=== PATIENT | female | born 1945 | race Caucasian/White ===

== ENCOUNTER → 2017-07-15 09:51 | Outpatient (CLI) | payer MEDICARE, BC, SELFPAY ==
--- NOTE | 2017-07-15 10:05 | RAD_ITS ---
STUDY: X-RAY - LUMBAR SPINE REASON FOR EXAM: Female, 72 years old. Lower back pain TECHNIQUE: 3 view(s) of the lumbar spine were obtained. COMPARISON: None FINDINGS: Normal lumbar lordosis. There is no substantial scoliosis. There is a normal alignment of the vertebrae. Degenerative findings of the hips. Grade 1 anterolisthesis of L5 on S1. Bilateral neural foraminal stenosis. There is multilevel endplate spondylosis of the lumbar vertebrae. There is multi-level degenerative disc disease with multi-level disc space narrowing. There are atherosclerotic vascular calcifications. The soft tissue structures are unremarkable. RAD/Lumbar Spine 2 or 3 Views IMPRESSION: Degenerative changes of the spine, as detailed above. Electronically Signed: Jose Marley MD at 18:07 EDT , Service support ,
== END ==
PROVIDERS: Family Provider Family Medicine; PCP Family Medicine; Visit Provider Anesthesiology Pain Medicine
DX: M54.5 Low back pain (principal)
CPT/HCPCS: 72100

== ENCOUNTER 2018-04-22 10:00 | Outpatient (RCR) | payer MEDICARE, BC, SELFPAY ==
--- NOTE | 2018-04-13 09:43 | HP.PTEVAL ---
Patient's Visit Information YUNG GAUTHIER is a 72 year old F referred to Physical Therapy by Bel Brown MD with a diagnosis of Back pain. Date of Evaluation: 04/13/18 Physical Therapist: Pablo Ly, TERRELLT, OCS, CSCS - Visit Plan Frequency: 3x /Week Duration: 4-6 Weeks Plan: 3x/week for 3-6 weeks for aquatic based : HS, ITB, quad stretches. NS DLS/core strength. general ex for UE/LE in NS posture. - Subjective Findings: LBP and muscle stiffness. Chronic LBP for years most of time. Has arthritic cyst onn spine adn degenerative OA. Has tendonosis in L achilles. Has h/o stroke effecting L side. Weak L side. Tingles both legs iof stands too long. No numbness. Pain is across LB and into L hip. Pain is 4/10, worst this week was 6/10 standing too long. standing to do dishes hurts. Sleeps is OK most of time, Sleeps on belly or side. Stiff in am first thing. Retired 12 years ago from [employer]. Activities include computer adn reading and housework. Son in law and dtr live with her and he cleans the floors. Does dishes and cooking. Back makes her squirm but she can do most things. - Pain LBP Pain Intensity (Out of 10): 3 Pain Intensity Range: 0, 7 - Objective Walks slow but steady, minor L limp. Trasnfers I to and fro supine and sit. L/S aROM ext max limited, SB min limited and all painful in central LB, flexion just stretching in HS adn feel tight in LB. reflexes 2/3 patella and achilles B. Sensation WNL to gross light touch B LE. UE AROM WNL. Strength LE 4-/5 L hip and knee and ankle, 4/5 R, seemingly form stroke 10 years ago. Able to pelvic tilt with VC today. Tender to touch L/S paraspinals and into cervical paraspinals. Tightness noted B HS at -20 90/90 test. and mod in quads. Min in ITB. - slump and - SLR. - Goals Goal 1:: Pt LBP 0-2/10 at all times and manageable Goal Time Frame: 4-6 Weeks Goal 2:: Pt I in approp water or land based ex to minimize future problems. Goal Time Frame: 4-6 Weeks Goal 3:: Pt sleep without interruption from back pain and less stiffness in am. Goal Time Frame: 4-6 Weeks Goal 4:: 20% improvement in oswestry score. Goal Time Frame: 4-6 Weeks - Rehabilitation Potential Physical Therapy Diagnosis: Muscle pain, back degeneration Rehabilitation Potential: Fair - Anticipated Interventions Patient/Client Instruction: Educate patient on: Condition, Plan of Care For the Purpose of:: To decrease pain, To increase ROM, To improve muscle performance and motor function Therapeutic Exercise to Include: Strength training, Flexibilty training, In an aquatic setting, Passive ROM, Active ROM For the Purpose of:: To decrease pain, To increase ROM, To increase tolerance to activity/condition/position, To improve ability of physical actions for home/community/work/leisure Thank you for the opportunity to evaluate your patient. For Medicare and Medicare HMO plans, please review the plan of care and approve it. It will need to be FAXED BACK to us at [phone] for Medicare purposes. For Medicare only, by signing this I certify the plan of care. Please let me know if there are questions or concerns regarding this plan of care. Physician Signature: Date:
--- NOTE | 2018-06-09 16:15 | HP.PTDCNRP_ITS ---
HP - Discharge Summary (1) - Patient Information YUNG GAUTHIER was seen in my office for initial evaluation on 04/13/18. The following Plan of Care was established for this patient: Initial Frequency: 3x /Week Initial Duration: 4-6 Weeks - Anticipated Interventions Patient/Client Instruction: Educate patient on: Condition, Plan of Care For the Purpose of:: To decrease pain, To increase ROM, To improve muscle p erformance and motor function Therapeutic Exercise to Include: Strength training, Flexibilty training, In an aquatic setting, Passive ROM, Active ROM For the Purpose of:: To decrease pain, To increase ROM, To increase tolerance to activity/condition/position, To improve ability of physical actions for home/community/work/leisure This patient was last seen in our office 04/22/18. Pertinent comments regarding their Physical therapy will appear below: Pt seen 3 visits of POC adn then cancelled rest of visits in favor of revisiting doctor as she was hurting too bad. I will discontinue her due to nonattendance. At this point I will be discontinuing this patient from physical therapy. I would be happy to see this patient again in the future if found appropriate by the physician. Thank you! Pablo Ly, DPT, OCS, CSCS
== END 2018-04-22 19:00 | disposition home or self-care (01) ==
LOC: PT 10:00
PROVIDERS: Family Provider Family Medicine; PCP Family Medicine; Visit Provider Anesthesiology Pain Medicine
DX: M54.9 Dorsalgia, unspecified (principal); M79.10 Myalgia, unspecified site
CPT/HCPCS: 97113; 97162

== ENCOUNTER → 2018-06-11 13:08 | Outpatient (CLI) | payer MEDICARE, BC, SELFPAY ==
--- NOTE | 2018-06-11 13:38 | MRI_ITS ---
STUDY: MRI LUMBAR SPINE WITHOUT CONTRAST REASON FOR EXAM: Female, 72 years old. Right leg and hip pain with back pain TECHNIQUE: Standardized fat and water weighted pulse sequences were obtained in the sagittal and axial planes. COMPARISON: 11/07/2015 FINDINGS: T12-L1: Incompletely imaged bulging annulus. Normal lumbar lordosis. There is no substantial scoliosis. Normal conus medullaris that terminates at the L2 level. Stable 9 mm of grade 1 L5-S1 anterolisthesis. L1-2: Bulging annulus without compressive sequelae. L2-3: Disc space narrowing and desiccation with discogenic endplate changes and anterior osteophytes. Disc osteophyte complex and bilateral facet hypertrophy with mild central canal and moderate bilateral foraminal stenoses. L3-4: Disc space narrowing and desiccation with discogenic endplate changes and anterior osteophytes. Disc osteophyte complex and bilateral facet and ligamentum flavum hypertrophy with moderate central canal stenosis and severe left and moderate to severe right foraminal stenoses. There is mass effect on the exiting left L3 nerve root. L4-5: Bulging annulus and bilateral facet and ligamentum flavum hypertrophy. Moderate central canal and moderate to severe left and moderate right foraminal stenoses. 14 mm synovial cyst projecting posteriorly from the left facet joint. L5-S1: Anterolisthesis, bulging annulus, and bilateral facet hypertrophy with moderate to severe central canal stenosis and severe bilateral foraminal stenoses. There is mass effect on both exiting L5 nerve roots. Normal visualized sacral ala. Normal visualized paraspinous soft tissue structures. MRI/Spine Lumbar (Routine) IMPRESSION: Grade 1 L5-S1 anterolisthesis. Multilevel degenerative disease as described. Severe foraminal stenoses on the left at L3-4 and bilaterally at L5-S1, with mass effect on the corresponding exiting nerve roots at those levels. These findings are unchanged. Electronically Signed: Yogesh Evangelista MD at 20:41 EDT Tel , Service support ,
== END ==
PROVIDERS: Family Provider Family Medicine; PCP Family Medicine; Referring Provider Anesthesiology Pain Medicine; Visit Provider Anesthesiology Pain Medicine
DX: M79.604 Pain in right leg (principal); M54.9 Dorsalgia, unspecified
CPT/HCPCS: 72148

== ENCOUNTER → 2018-08-10 | Outpatient (CLI) | payer MEDICARE, BC, SELFPAY ==
[2018-08-10 12:27] LABS: Absolute Lymphocyte Count 2.41 X10^3/ul (0.83-4.51); Absolute Neutrophil Count 6.1 X10^3/uL (2.0-7.7); Basophil# 0.02 X10^3/uL; Basophil% 0.2 % (0-1); Eosinophil# 0.06 X10^3/uL; Eosinophils% 0.7 % (0-5); Hematocrit 42.8 % (37-47); Hemoglobin 14.5 g/dl (12.0-15.0); Lymphocyte # 2.41 X10^3/ul (4.0); Lymphocyte % 26.3 % (19-41); Mean Corp Hgb Conc 33.9 g/gl (32-36); Mean Corpuscular Hgb 30.5 pg (27.0-32.0); Mean Corpuscular Volume 90.1 fL (81-99); Mean Platelet Vol. 9.3 fl (6.2-12.0); Monocyte# 0.57 X10^3/uL; Monocyte% 6.2 % (0-10); Neutrophil # 6.09 X10^3/uL (2.7-7.7); Neutrophil % 66.4 % (47-70); Platelet Count 290 K/mm3 (150-450); RBC Distribution Width CV 13.1 % (11.6-14.6); RBC Distribution Width SD 42.6 fl (35.1-43.9); Red Blood Count 4.75 M/mm3 (4.2-5.4); White Blood Count 9.2 K/mm3 (4.4-11.0)
[2018-08-10 12:45] LABS: POSITIVE COUNT NO; POSITIVE DIFFERENTIAL NO; POSITIVE MORPHOLOGY NO
[2018-08-10 13:00] LABS: ALB/GLOB Ratio 1.1 RATIO (0.9-2.4); AST(SGOT) 18 U/L (15-37); Alanine Aminotransfer ALT/SGPT 25 U/L (13-56); Alkaline Phosphatase 100 U/L (45-117); Anion Gap 7 (5-15); BUN 23 mg/dL (7-18); BUN/Creat Ratio 28.6 RATIO (10-20); Calcium,Total 9.2 mg/dL (8.5-10.1); Chloride 103 mmol/L (98-107); Cholesterol 183 mg/dL (200); EST Glomerular Filtration Rate 74 mL/min (>60); Est Glom Filt Rate - Afr Amer 90 mL/min (>60); Globulin 3.7 g/dL (2.2-4.2); Glucose 95 mg/dL (74-106); High Density Lipoprotein 57 mg/dL; Protein, Total 7.7 g/dL (6.4-8.2); Sodium Level 140 mmol/L (136-145); Triglycerides 120 mg/dL; Very Low Density Lipoprotein 24 mg/dL (5-40)
== END | disposition home or self-care (01) ==
LOC: MTLAB 09:23
PROVIDERS: Family Provider Family Medicine; PCP Family Medicine; Referring Provider Family Medicine; Visit Provider Family Medicine
DX: I10 Essential (primary) hypertension (principal); R73.01 Impaired fasting glucose; K21.9 Gastro-esophageal reflux disease without esophagitis; E78.5 Hyperlipidemia, unspecified
CPT/HCPCS: 36415; 80053; 80061; 85025

== ENCOUNTER → 2018-10-14 09:16 | Outpatient (CLI) | payer MEDICARE, BC, SELFPAY ==
--- NOTE | 2018-10-14 09:18 | BI_ITS ---
MAMMOGRAPHY - BILATERAL SCREENING REASON FOR EXAM: Female, 73 years old. Routine annual screening examination. PERTINENT HISTORY: Non-contributory. Remote left stereotactic breast biopsy. TECHNIQUE: Digital bilateral breast milagros (3D mammographic acquisition) in the CC and MLO projections. 2-D mediolateral oblique (MLO) and craniocaudad (CC) views of both breasts were obtained. CAD: Full Field Digital Mammography with Computer Added Detection was performed. COMPARISON: Comparison is made with prior outside examination dated June 11, 2017. FINDINGS: Breast Composition: The breasts are almost entirely fatty. There are no dominant masses or suspicious calcifications. A tissue clip marker is seen in the deep central aspect of the right breast. Benign appearing bilateral axillary lymph nodes. No other significant abnormalities are identified. There has been no significant change since the prior study. BI/SCREEN MAMM (CAD) W/MILAGROS BILAT IMPRESSION: Stable bilateral screening mammogram. Yearly follow-up mammogram recommended. (A) ASSESSMENT CATEGORY: BIRADS Category 2: Benign. A letter regarding these results will be sent to the patient by the facility within 30 days. Approximately 10% of breast cancers are not detected by mammography. A normal mammogram should not delay biopsy of a clinically suspicious abnormality. [id number] Electronically Signed: Herve Alejandra, at 10:55 EDT , Service support ,
--- NOTE | 2018-10-14 09:22 | BD_ITS ---
STUDY: DUAL ENERGY X-RAY ABSORPTIOMETRY / DXA REASON FOR EXAM: Female, 73 years old. The patient is postmenopausal. Loss of height. TECHNIQUE: Bone Mineral Density (BMD) measurements of lumbar spine and bilateral hips were obtained. COMPARISON: None. FINDINGS: Lumbar Spine (L1-L4): g/cm2 (1.386) / T-score (1.8) / Z-score (3.6) Findings are suggestive of normal bone density with a low fracture risk. Left Femur Total: g/cm2 (0.773) / T-score (-1.9) / Z-score (-0.2) Left Femoral Neck: g/cm2 (0.730) / T-score (-2.2) / Z-score (-0.3) Right Femur Total: g/cm2 (0.852) / T-score (-1.2) / Z-score (0.4) Right Femoral Neck: g/cm2 (0.814) / T-score (-1.6) / Z-score (0.3) BD/Dexa Bone Density Study IMPRESSION: The patient is considered osteopenic as outlined below according to World Harish Organization (WHO) criteria with a high fracture risk. Reference Information: The T-score is the number of standard deviations above or below the standard which is normal for young adults at their peak bone mineral density. The World Health Organization (WHO) interprets the T-scores as follows: Above -1 Normal bone density Between -1 and -2.5 Osteopenia Equal to / or below -2.5 Osteoporosis As a practical clinical guideline, osteopenia may be graded as follows: Mild -1 through -1.5 Moderate -1.6 through -2.0 Severe -2.1 through -2.4 The Z-score is the number of standard deviations above or below age-matched controls. A Z-score of less than -1.5 would be considered abnormal. References: 1. NIH Osteoporosis and Related Bone Diseases http://www.osteo.org 2. International Society for Clinical Densitometry http://www.iscd.org 3. National Osteoporosis Foundation http://www.nof.org Electronically Signed: Herve Alejandra, at 15:26 EDT , Service support ,
== END ==
PROVIDERS: Family Provider Family Medicine; PCP Family Medicine; Referring Provider Family Medicine; Visit Provider Family Medicine
DX: Z12.31 Encounter for screening mammogram for malignant neoplasm of breast (principal); Z78.0 Asymptomatic menopausal state; M85.80 Other specified disorders of bone density and structure, unspecified site
CPT/HCPCS: 77063; 77067; 77080

== ENCOUNTER → 2019-02-01 10:23 | Outpatient (CLI) | payer MEDICARE, BC, SELFPAY ==
--- NOTE | 2019-02-01 10:46 | RAD_ITS ---
STUDY: X-RAY - RIGHT KNEE REASON FOR EXAM: Female, 73 years old. Fall. Pain. TECHNIQUE: 4 view(s) of the knee. COMPARISON: None. FINDINGS: Normal visualized distal femur. Normal visualized proximal tibia and fibula. Normal proximal tibiofibular articulation. There is no demonstrated fracture. There is moderate degenerative arthrosis of the medial femorotibial compartment with moderate joint space narrowing. Normal lateral femorotibial compartment. There is moderate degenerative arthrosis of the patellofemoral articulation. There is no demonstrated joint effusion. The soft tissue structures are unremarkable. RAD/Knee 4 or More Views IMPRESSION: No fracture or dislocation. Degenerative changes. Electronically Signed: Teodoro Ramos MD at 18:26 EST , Service support ,
== END ==
PROVIDERS: Family Provider Family Medicine; PCP Family Medicine; Referring Provider Anesthesiology Pain Medicine; Visit Provider Anesthesiology Pain Medicine
DX: M25.569 Pain in unspecified knee (principal); W19.XXXA Unspecified fall, initial encounter
CPT/HCPCS: 73564

== ENCOUNTER → 2019-02-15 07:58 | Outpatient (CLI) | payer MEDICARE, BC, SELFPAY ==
[2019-02-15 10:09] LABS: Absolute Neutrophil Count 3.7 X10^3/uL (2.0-7.7); Basophil# 0.03 X10^3/uL; Basophil% 0.5 % (0-1); Eosinophil# 0.09 X10^3/uL; Eosinophils% 1.6 % (0-5); Hematocrit 40.4 % (37-47); Hemoglobin 13.4 g/dL (12.0-15.0); Lymphocyte % 27.9 % (19-41); Mean Corp Hgb Conc 33.2 g/dL (32-36); Mean Corpuscular Hgb 30.6 pg (27.0-32.0); Mean Corpuscular Volume 92.2 fL (81-99); Mean Platelet Vol. 9.7 fl (6.2-12.0); Monocyte# 0.28 X10^3/uL; Monocyte% 4.9 % (0-10); NRBC Flagged by Analyzer 0 % (0-5); Neutrophil # 3.72 X10^3/uL (2.7-7.7); Neutrophil % 64.9 % (47-70); Platelet Count 209 K/mm3 (150-450); RBC Distribution Width CV 13.8 % (11.6-14.6); RBC Distribution Width SD 46.8 fl (35.1-43.9); Red Blood Count 4.38 M/mm3 (4.2-5.4); White Blood Count 5.7 K/mm3 (4.4-11.0)
[2019-02-15 10:37] LABS: Hemoglobin A1c 5.5 % (4.2-6.3)
[2019-02-15 10:45] LABS: ALB/GLOB Ratio 1.2 RATIO (0.9-2.4); AST(SGOT) 16 U/L (15-37); Alanine Aminotransfer ALT/SGPT 25 U/L (13-56); Albumin, Serum 3.7 g/dL (3.2-5.0); Alkaline Phosphatase 72 U/L (45-117); Anion Gap 6 (5-15); BUN 20 mg/dL (7-18); BUN/Creat Ratio 25.5 RATIO (10-20); Calcium,Total 9.2 mg/dL (8.5-10.1); Chloride 106 mmol/L (98-107); Cholesterol 183 mg/dL (200); Creatinine, Serum 0.78 mg/dL (0.55-1.02); EST Glomerular Filtration Rate 76 mL/min (>60); Est Glom Filt Rate - Afr Amer 92 mL/min (>60); Globulin 3.2 g/dL (2.2-4.2); Glucose 102 mg/dL (74-106); High Density Lipoprotein 60 mg/dL; Protein, Total 6.9 g/dL (6.4-8.2); Sodium Level 140 mmol/L (136-145); Triglycerides 141 mg/dL; Very Low Density Lipoprotein 28 mg/dL (5-40)
== END ==
PROVIDERS: Family Provider Family Medicine; PCP Family Medicine; Referring Provider Family Medicine; Visit Provider Family Medicine
DX: I10 Essential (primary) hypertension (principal); M85.80 Other specified disorders of bone density and structure, unspecified site; R73.01 Impaired fasting glucose; K21.9 Gastro-esophageal reflux disease without esophagitis; M06.4 Inflammatory polyarthropathy
CPT/HCPCS: 36415; 80053; 80061; 83036; 85025

== ENCOUNTER → 2019-05-17 09:42 | Outpatient (CLI) | payer MEDICARE, BC, SELFPAY ==
--- NOTE | 2019-05-17 09:46 | RAD_ITS ---
STUDY: X-RAY - RIGHT HAND REASON FOR EXAM: Female, 73 years old. OSTEOARTHRITIS, PAIN TECHNIQUE: 3 view(s) of the hand. COMPARISON: None. FINDINGS: Normal radiocarpal articulation. Normal distal radioulnar joint. Normal visualized carpal bones. Normal carpal articulations There is degenerative arthrosis of the carpometacarpal (CMC) articulation of the thumb. Normal second through fifth carpometacarpal joints. Normal metacarpi. Normal metacarpophalangeal joint of the thumb. Normal interphalangeal joint of the thumb. Normal proximal and distal phalanges of the thumb. Normal metacarpophalangeal joints of the second through fifth fingers. There is diffuse articular joint space narrowing of the proximal and distal interphalangeal joints of the second through fifth fingers, but without erosive changes or periarticular soft tissue swelling. Normal phalanges of the second through fifth fingers. The soft tissue structures are unremarkable. RAD/Hand Min 3 Views IMPRESSION: Degenerative joint disease of the hand and wrist, as described above. Electronically Signed: Matthew Krishnan MD at 15:28 EDT Tel , Service support ,
--- NOTE | 2019-05-17 09:46 | RAD_ITS ---
STUDY: X-RAY - LEFT HAND REASON FOR EXAM: Pain, osteoarthritis. TECHNIQUE: 3 view(s) of the hand. COMPARISON: None. FINDINGS: Normal radiocarpal articulation. Normal distal radioulnar joint. Normal visualized carpal bones. There is moderate joint space narrowing of the triscaphe articulation. There is joint space loss of the carpometacarpal articulation of the thumb. Normal second through fifth carpometacarpal joints. Normal metacarpi. There is mild joint space narrowing of the metacarpophalangeal joint of the thumb. There are marginal osteophytes with joint space narrowing of the interphalangeal joint of the thumb. Normal proximal and distal phalanges of the thumb. There is joint space narrowing of the metacarpophalangeal joints of the third through fifth fingers. There are marginal osteophytes with joint space narrowing of the proximal and distal interphalangeal joints of the second through fifth fingers and central erosive changes of the second through fourth proximal interphalangeal joints and second distal interphalangeal joint suggestive of erosive osteoarthritis. Normal phalanges of the second through fifth fingers. The soft tissue structures are unremarkable. RAD/Hand Min 3 Views IMPRESSION: Erosive osteoarthritis. Electronically Signed: Thomas Torrez MD at 14:04 EDT Tel , Service support ,
--- NOTE | 2019-05-17 09:46 | RAD_ITS ---
STUDY: X-RAY - LEFT KNEE REASON FOR EXAM: Female, 73 years old. OSTEOARTHRITIS, PAIN TECHNIQUE: 4 view(s) of the knee. COMPARISON: None. FINDINGS: Normal visualized distal femur. Normal visualized proximal tibia and fibula. Normal proximal tibiofibular articulation. There is severe degenerative arthrosis of the medial femorotibial compartment with severe joint space narrowing. There is mild degenerative arthrosis of the lateral femorotibial compartment. There is mild degenerative arthrosis of the patellofemoral articulation. The soft tissue structures are unremarkable. RAD/Knee 4 or More Views IMPRESSION: Degenerative arthrosis. Electronically Signed: Matthew Krishnan MD at 15:27 EDT Tel , Service support ,
== END ==
PROVIDERS: PCP Family Medicine; Referring Provider Internal Medicine Rheumatology; Visit Provider Internal Medicine Rheumatology
DX: M19.049 Primary osteoarthritis, unspecified hand (principal); M17.12 Unilateral primary osteoarthritis, left knee
CPT/HCPCS: 73130; 73564

== ENCOUNTER → 2019-11-02 08:25 | Outpatient (CLI) | payer MEDICARE, BC, SELFPAY ==
--- NOTE | 2019-11-02 08:27 | BI_ITS ---
MAMMOGRAPHY - BILATERAL SCREENING REASON FOR EXAM: Female, 74 years old. Routine annual screening examination. PERTINENT HISTORY: Non-contributory. Remote left stereotactic breast biopsy. TECHNIQUE: Digital bilateral breast milagros (3D mammographic acquisition) in the CC and MLO projections. 2-D mediolateral oblique (MLO) and craniocaudad (CC) views of both breasts were obtained. CAD: Full Field Digital Mammography with Computer Added Detection was performed. COMPARISON: Comparison is made with prior examination dated 10/14/2018. FINDINGS: Breast Composition: The breasts are almost entirely fatty. There are no dominant masses or suspicious calcifications. A tissue clip marker is once again seen in the deep central portion of the right breast. Stable benign-appearing bilateral axillary lymph nodes. No other significant abnormalities are identified. There has been no significant change since the prior study. BI/SCREEN MAMM (CAD) W/MILAGROS BILAT IMPRESSION: Stable bilateral screening mammogram. Yearly follow-up mammogram recommended. (A) ASSESSMENT CATEGORY: BIRADS Category 2: Benign. A letter regarding these results will be sent to the patient by the facility within 30 days. Approximately 10% of breast cancers are not detected by mammography. A normal mammogram should not delay biopsy of a clinically suspicious abnormality. [id number] Electronically Signed: Herve Alejandra, at 12:55 EDT , Service support ,
== END ==
PROVIDERS: PCP Family Medicine; Referring Provider Family Medicine; Visit Provider Family Medicine
DX: Z12.31 Encounter for screening mammogram for malignant neoplasm of breast (principal); M85.80 Other specified disorders of bone density and structure, unspecified site
CPT/HCPCS: 77063; 77067

== ENCOUNTER → 2020-02-16 09:47 | Outpatient (CLI) | payer MEDICARE, BC, SELFPAY ==
[2019-11-14 11:42] VITALS: BMI 36.3
[2020-02-16 12:19] LABS: Absolute Lymphocyte Count 1.37 X10^3/uL (0.83-4.51); Absolute Neutrophil Count 3.5 X10^3/uL (2.0-7.7); Basophil# 0.03 X10^3/uL; Basophil% 0.6 % (0-1); Eosinophils% 1.9 % (0-5); Hematocrit 38.5 % (37-47); Hemoglobin 12.3 g/dL (12.0-15.0); Lymphocyte # 1.37 X10^3/ul (4.0); Mean Corp Hgb Conc 31.9 g/dL (32-36); Mean Corpuscular Hgb 30.3 pg (27.0-32.0); Mean Corpuscular Volume 94.8 fL (81-99); Mean Platelet Vol. 9.6 fl (6.2-12.0); Monocyte# 0.26 X10^3/uL; Monocyte% 4.9 % (0-10); NRBC Flagged by Analyzer 0 % (0-5); Neutrophil # 3.48 X10^3/uL (2.7-7.7); Neutrophil % 66.2 % (47-70); Platelet Count 239 K/mm3 (150-450); RBC Distribution Width CV 13.1 % (11.6-14.6); Red Blood Count 4.06 M/mm3 (4.2-5.4); White Blood Count 5.3 K/mm3 (4.4-11.0)
[2020-02-16 12:49] LABS: ALB/GLOB Ratio 1.1 RATIO (0.9-2.4); AST(SGOT) 16 U/L (15-37); Alanine Aminotransfer ALT/SGPT 24 U/L (13-56); Albumin, Serum 3.8 g/dL (3.2-5.0); Alkaline Phosphatase 96 U/L (45-117); Anion Gap 6 (5-15); BUN 18 mg/dL (7-18); BUN/Creat Ratio 25.4 RATIO (10-20); Calcium,Total 8.9 mg/dL (8.5-10.1); Chloride 107 mmol/L (98-107); Cholesterol 168 mg/dL (200); Creatinine, Serum 0.71 mg/dL (0.55-1.02); EST Glomerular Filtration Rate 85 mL/min (>60); Est Glom Filt Rate - Afr Amer 103 mL/min (>60); Globulin 3.5 g/dL (2.2-4.2); Glucose 93 mg/dL (74-106); High Density Lipoprotein 49 mg/dL; Potassium 3.7 mmol/L (3.5-5.1); Protein, Total 7.3 g/dL (6.4-8.2); Sodium Level 141 mmol/L (136-145); Triglycerides 176 mg/dL; Very Low Density Lipoprotein 35 mg/dL (5-40)
[2020-02-16 12:53] LABS: Hemoglobin A1c 5.3 % (3.8-5.6)
== END ==
PROVIDERS: PCP Family Medicine; Referring Provider Family Medicine; Visit Provider Family Medicine
DX: R73.01 Impaired fasting glucose (principal); I10 Essential (primary) hypertension; K21.9 Gastro-esophageal reflux disease without esophagitis
CPT/HCPCS: 36415; 80053; 80061; 83036; 85025

== ENCOUNTER → 2020-03-24 11:55 | Outpatient (CLI) | payer MEDICARE, BC, SELFPAY ==
[2019-11-14 11:42] VITALS: BMI 36.3
== END ==
PROVIDERS: PCP Family Medicine; Visit Provider Family Medicine
DX: U07.1 COVID-19 (principal)
CPT/HCPCS: 87635; U0005; U0003

== ENCOUNTER 2020-03-30 12:36 | Outpatient (CLI) | payer MEDICARE, BC, SELFPAY ==
[2019-11-14 11:42] VITALS: BMI 36.3
[2020-03-30 12:57] VITALS: BP 111/66; PULSE 70; RESP 18; TEMP 37.6; O2SAT 95; BMI 36.4
[2020-03-30 13:40] VITALS: BP 120/63; PULSE 69; RESP 18; TEMP 37.4; O2SAT 93
[2020-03-30 14:10] VITALS: BP 135/59; PULSE 77; RESP 18; TEMP 37.6; O2SAT 96
[2020-03-30 14:25] VITALS: BP 106/65; PULSE 71; RESP 18; TEMP 37.1; O2SAT 96
[2020-03-30 14:55] VITALS: BP 112/53; PULSE 73; RESP 18; TEMP 37.5; O2SAT 73
[2020-03-30 15:25] VITALS: BP 111/56; PULSE 72; RESP 18; TEMP 36.9; O2SAT 96
== END 2020-03-30 15:25 | disposition home or self-care (01) ==
LOC: MS2OUT 12:36 → MS2 12:37
PROVIDERS: PCP Family Medicine; Referring Provider Nurse Practitioner Acute Care; Visit Provider Nurse Practitioner Acute Care
DX: U07.1 COVID-19 (principal)
CPT/HCPCS: J7050; M0239; Q0239

== ENCOUNTER → 2020-07-10 20:19 | Outpatient (CLI) | payer MEDICARE, BC, SELFPAY | PROVIDERS: PCP Family Medicine; Referring Provider Family Medicine; Visit Provider Family Medicine | DX: G47.10 Hypersomnia, unspecified (principal); R53.83 Other fatigue; I10 Essential (primary) hypertension | CPT/HCPCS: 95810 ==

== ENCOUNTER → 2020-08-04 14:29 | Outpatient (CLI) | payer MEDICARE, BC, SELFPAY ==
[2020-08-04 07:56] VITALS: BMI 35.2
[2020-08-04 15:11] LABS: Hematocrit 38.5 % (37-47); Hemoglobin 12.5 g/dL (12.0-15.0); Mean Corp Hgb Conc 32.5 g/dL (32-36); Mean Corpuscular Hgb 30.1 pg (27.0-32.0); Mean Corpuscular Volume 92.8 fL (81-99); Mean Platelet Vol. 9.4 fl (6.2-12.0); Platelet Count 257 K/mm3 (150-450); RBC Distribution Width CV 13.8 % (11.6-14.6); RBC Distribution Width SD 46.7 fl (35.1-43.9); Red Blood Count 4.15 M/mm3 (4.2-5.4); White Blood Count 7.4 K/mm3 (4.4-11.0)
[2020-08-04 15:30] LABS: Ferritin 28 ng/mL (8-252); Iron 73 ug/dL (50-170); Iron Binding Capacity,Total 388 ug/dL (250-450); PERCENT IRON SATURATION 18.8 % (15.0-55.0)
== END ==
PROVIDERS: PCP Family Medicine; Referring Provider Nurse Practitioner Acute Care; Visit Provider Nurse Practitioner Acute Care
DX: D64.9 Anemia, unspecified (principal); G25.81 Restless legs syndrome
CPT/HCPCS: 36415; 82728; 83540; 83550; 85027

== ENCOUNTER 2020-08-11 21:29 | Emergency (ER) | payer MEDICARE, BC, SELFPAY ==
[2020-08-04 07:56] VITALS: BMI 35.2
[2020-08-11 21:30] VITALS: BP 163/95; PULSE 72; RESP 15; TEMP 36.1; O2SAT 96; BMI 36.5
--- NOTE | 2020-08-11 21:53 | EX.ED.DYSGE1 ---
HPI History of Present Illness Chief Complaint: Wound Detail of Chief Complaint: Rash on lower abdomen for about 2 weeks Informant: patient Narrative Narrative: Patient with a rash on the lower abdomen that she noticed 2 weeks ago. States that she went on vacation and has been putting bacitracin ointment on it but now she also noticed more spots. She denies fevers. She denies recent illness. [facility] Medical History (Reviewed 08/04/20 @ 13:55 by Na Burroughs RISK AND INSURANCE MANAGER, RISK AND INSURANCE MANAGER-C) Arthritis Back pain Diabetes Difficulty balancing Heart disease Hypertension Knee pain Limb weakness Neck pain Stroke Home Medications hydrochlorothiazide 25 mg PO DAILY 12/23/15 [History Last Taken Unknown] metformin 500 mg PO DAILY 12/23/15 [History Last Taken Unknown] pantoprazole 20 mg PO DAILY 12/23/15 [History Last Taken 06/07/16 08:00] potassium chloride 20 meq PO DAILY 12/23/15 [History Last Taken Unknown] acetaminophen 500 mg tablet 500 mg PO Q6H PRN 02/18/20 [History Last Taken Unknown] aspirin 81 mg tablet,delayed release 81 mg PO DAILY 02/18/20 [History Last Taken Unknown] gabapentin 100 mg capsule 600 mg PO TID cap 02/18/20 [History Last Taken Unknown] sertraline 100 mg tablet 150 mg PO DAILY tab 02/18/20 [History Last Taken Unknown] rosuvastatin 5 mg tablet 5 mg PO DAILY 03/29/20 [History Last Taken Unknown] sulindac 200 mg tablet 200 mg PO BID 03/29/20 [History Last Taken Unknown] albuterol sulfate 2 puff INHALATION Q4H PRN PRN 03/30/20 [History Last Taken Unknown] losartan 25 mg tablet 12.5 mg PO DAILY tab 08/04/20 [History Last Taken Unknown] cephalexin 500 mg PO Q6 #40 capsule 08/11/20 [Rx Last Taken Unknown] sulfamethoxazole-trimethoprim [Bactrim DS] 1 tab PO BID 10 Days #20 tab 08/11/20 [Rx Last Taken Unknown] Allergy/AdvReac Type Severity Reaction Status Date / Time meloxicam Allergy Unknown Verified 08/11/20 21:32 waldrop AdvReac Nausea/Vom/ Verified 08/11/20 21:32 Diarrhea ciprofloxacin AdvReac Vomiting Verified 08/11/20 21:32 methotrexate AdvReac Other Verified 08/11/20 21:32 simvastatin AdvReac Pain in Verified 08/11/20 21:32 joints Family History (Reviewed 08/04/20 @ 13:55 by Na Burroughs RISK AND INSURANCE MANAGER, RISK AND INSURANCE MANAGER-C) Sister Cancer Small cell Mother Asthma Heart disease Grandfather Myocardial infarction Grandmother Myocardial infarction Surgical History H/O tubal ligation Social History (Reviewed 08/04/20 @ 13:55 by Na Burroughs RISK AND INSURANCE MANAGER, RISK AND INSURANCE MANAGER-C) Smoking Status: Never smoker ROS ROS ED Constitutional Constitutional ED: Reports systems reviewed and no addt'l complaints, except as documented; Denies body ache(s), change in weight or chills Eyes Eyes: Denies acute decrease in peripheral vision, change in vision, double vision or loss of vision ENT ENT ED: Reports none; Denies ear pain, lip swelling, loss taste/smell, neck pain, otalgia or sore throat Cardiovascular Cardiovascular: Reports none; Denies abdominal pain, chest pain with activity, leg edema, lightheadedness, palpitations, rapid heart rate or syncope Respiratory/Chest Respiratory/Chest: Reports none; Denies change in mental status, dry cough, dyspnea, hemoptysis, shortness of breath at rest or shortness of breath with exertion Gastrointestinal Gastrointestinal: Reports none; Denies abdominal pain, change in stool character, diarrhea, hematemesis, hematochezia, melena, rectal bleeding or vomiting Genitourinary Genitourinary ED: Reports none; Denies abdominal discomfort, anuria, dysuria, genital pain or polyuria Musculoskeletal Musculoskeletal: Reports none; Denies arthralgias, back pain, difficulty walking, extremity pain, muscle weakness or myalgias Integumentary Reports none and rash; Denies abscess Neurologic Neurologic: Reports none; Denies abnormal gait, confusion, focal weakness, frequent falls, headache(s), loss of vision, numbness, paresthesias, radicular pain, vertigo or weakness Psychiatric Psychiatric: Reports systems reviewed and no addt'l complaints, except as documented and none; Denies behavioral changes, confusion, difficulty concentrating, hallucinations, suicidal ideation, tactile hallucinations or visual hallucinations Endocrine Endocrinology: Denies none, cold intolerance, excessive sweating, fatigue or heat intolerance Hematologic/Lymphatic Hematologic/Lymphatic: Reports none; Denies anemia, easy bleeding or easy bruising Allergic/Immunologic Allergic/Immunologic ED: Denies as per HPI, none, lip swelling, mouth swelling, throat swelling, tongue swelling or hives EXAM Physical Exam Const Vital Signs: 08/11/20 21:30 Temperature 97 F L Temperature Source Temporal Pulse Rate 72 Respiratory Rate 15 Blood Pressure 163/95 H Blood Pressure Mean 117 Pulse Ox 96 Oxygen Delivery Method Room Air Positive well nourished and well developed General Appearance ED: well developed and NAD HEENT Reports TM's clear and moist mucous membranes normocephalic and atraumatic; Negative for trauma or tenderness Tympanic Membrane ED: Yes TM's clear Eyes PERRL and EOMs intact bilaterally General Eye ED: Negative for pale conjunctiva or scleral icterus Neck no lymphadenopathy, supple and no JVD General: Negative for tenderness Chest Wall inspection of chest normal and palpation of chest normal Chest: Negative for tenderness Resp normal respiratory effort and clear to auscultation bilaterally Effort and Inspection: Negative for respiratory distress or pain with movement Auscultation: Negative for rhonchi, wheezes or diminished lung sounds Cardio regular rate, regular rhythm, S1 normal heart sound, S2 normal heart sound and no murmurs Peripheral Pulses: pulses 2+ throughout GI normal to inspection, nondistended, normoactive bowel sounds, soft to palpation, non-tender, non-distended and no masses Back/Spine no CVA tenderness and no thoracic nor lumbar tenderness Extremity normal to inspection General Extremety ED: Negative for edema General Extremity: Negative for edema Neuro oriented x3, CN's II-XII intact bilaterally, no sensory deficits noted and gait normal Sensorium / Orientation: awake, alert, oriented to person, oriented to place and oriented to time Motor Exam: strength 5/5 throughout and strength abnormal Psych mental status grossly normal Skin no wounds General Skin Exam: other Patient has an erythematous excoriated rash that is circular inferior to the umbilicus with some faint surrounding erythema and cellulitis. She has a total of 2 lesions that appear cellulitic and 2 that are healing lateral to the cellulitic-looking lesions. MDM MDM MDM Narrative Medical decision making narrative: I suspect patient likely has a staph infection. She was started on Bactrim and Keflex. Patient to follow-up with primary care physician 5 to 7 days for wound check. Discharge Plan Triage Chief Complaint: Wound ED Provider: Dajuan Angelo Dx/Rx/DC Orders Clinical Impression: Cellulitis, Infection, skin, staph Instructions: ED Cellulitis, ED Staph Skin Infection, Possible MRSA Prescriptions: New sulfamethoxazole-trimethoprim [Bactrim DS] 800-160 mg tablet 1 tab PO BID 10 Days Qty: 20 RF: 0 cephalexin [cephalexin] 500 MG capsule 500 mg PO Q6 Qty: 40 RF: 0 No Action acetaminophen [Tylenol Extra Strength] 500 mg tablet 500 mg PO Q6H PRN (Reason: pain or fever) RF: 0 aspirin [Adult Aspirin Regimen] 81 mg tablet,delayed release (DR/EC) 81 mg PO DAILY RF: 0 losartan 25 mg tablet 12.5 mg PO DAILY RF: 0 rosuvastatin 5 mg tablet 5 mg PO DAILY RF: 0 sulindac 200 mg tablet 200 mg PO BID RF: 0 metformin 500 MG tablet 500 mg PO DAILY RF: 0 pantoprazole 20 MG tablet 20 mg PO DAILY RF: 0 potassium chloride 20 MEQ packet 20 meq PO DAILY RF: 0 hydrochlorothiazide 25 MG tablet 25 mg PO DAILY RF: 0 sertraline 100 mg tablet 150 mg PO DAILY RF: 0 gabapentin 100 mg capsule 600 mg PO TID RF: 0 albuterol sulfate 1 PUFF inhaler 2 puff INHALATION Q4H PRN PRN (Reason: Sob &/Or Wheezing) RF: 0 Primary Care Provider: Magi Farmer Referrals: Magi Farmer MD [Primary Care Provider] - 5-7 Days Disposition Disposition: Home, self care
[2020-08-11] MEDS: Cephalexin 250 MG Capsule 500 MG PO (22:09)
[2020-08-11] MEDS: Smz/Tmp Ds Tablet 1 TABLET PO (22:09)
== END 2020-08-11 22:15 | disposition home or self-care (01) ==
LOC: ED 22:02
PROVIDERS: Emergency Provider Emergency Medicine; PCP Family Medicine
DX: L03.316 Cellulitis of umbilicus (principal); B95.8 Unspecified staphylococcus as the cause of diseases classified elsewhere; E11.9 Type 2 diabetes mellitus without complications; I10 Essential (primary) hypertension; M19.90 Unspecified osteoarthritis, unspecified site; Z79.1 Long term (current) use of non-steroidal anti-inflammatories (NSAID); Z79.82 Long term (current) use of aspirin; Z79.84 Long term (current) use of oral hypoglycemic drugs; Z79.899 Other long term (current) drug therapy
CPT/HCPCS: 99283

== ENCOUNTER → 2020-11-28 10:51 | Outpatient (CLI) | payer MEDICARE, BC, SELFPAY ==
--- NOTE | 2020-11-28 10:54 | BI_ITS ---
MAMMOGRAPHY - BILATERAL SCREENING REASON FOR EXAM: Female, 75 years old. Routine annual screening examination. PERTINENT HISTORY: Non-contributory. TECHNIQUE: Digital bilateral breast milagros (3D mammographic acquisition) in the CC and MLO projections. 2-D mediolateral oblique (MLO) and craniocaudad (CC) views of both breasts were obtained. CAD: Full Field Digital Mammography with Computer Added Detection was performed. COMPARISON: Comparison is made with prior study 11/02/2019 and 10/14/2018. FINDINGS: Breast Composition: The breasts are almost entirely fatty. There are no dominant masses or suspicious calcifications. A tissue clip marker is once again seen in the deep central portion of the right breast. Stable benign-appearing bilateral axillary lymph nodes. No other significant abnormalities are identified. There has been no significant change since the prior study. BI/SCRN MAMM (CAD)W/MILAGROS BILAT IMPRESSION: Stable bilateral screening mammogram. Yearly follow-up mammogram recommended. (A) ASSESSMENT CATEGORY: BIRADS Category 2: Benign. A letter regarding these results will be sent to the patient by the facility within 30 days. Approximately 10% of breast cancers are not detected by mammography. A normal mammogram should not delay biopsy of a clinically suspicious abnormality. [id number] Electronically Signed: Herve Alejandra MD at 12:41 EDT , Service support ,
--- NOTE | 2020-11-28 10:57 | BD_ITS ---
STUDY: DUAL ENERGY X-RAY ABSORPTIOMETRY / DXA REASON FOR EXAM: Female, 75 years old. M85.89 TECHNIQUE: Bone Mineral Density (BMD) measurements of lumbar spine and bilateral hips were obtained. COMPARISON: Comparison is made with prior examination dated 10/14/2018. FINDINGS: Lumbar Spine (L1-L4): g/cm2 (1.336) / T-score (2.7) / Z-score (5.2) Findings are suggestive of normal bone density with a low fracture risk. Left Femur Total: g/cm2 (0.710) / T-score (-1.9) / Z-score (0.0) Left Femoral Neck: g/cm2 (0.553) / T-score (-2.7) / Z-score (-0.5) Right Femur Total: g/cm2 (0.763) / T-score (-1.5) / Z-score (0.4) Right Femoral Neck: g/cm2 (0.569) / T-score (-2.5) / Z-score (-0.4) The T-Scores on the most recent prior examination were: Lumbar Spine (L1-L4): There has been improvement of bone density since the previous examination. Left Femur Total: which represents a worsening of 0.5%. Right Femur Total: which represents a worsening of 3.4%. BD/Dexa Bone Density Study IMPRESSION: The patient is considered osteoporotic as outlined below according to World Harish Organization (WHO) criteria with a high fracture risk. There has been worsening of bone density since the previous examination. Reference Information: The T-score is the number of standard deviations above or below the standard which is normal for young adults at their peak bone mineral density. The World Health Organization (WHO) interprets the T-scores as follows: Above -1 Normal bone density Between -1 and -2.5 Osteopenia Equal to / or below -2.5 Osteoporosis As a practical clinical guideline, osteopenia may be graded as follows: Mild -1 through -1.5 Moderate -1.6 through -2.0 Severe -2.1 through -2.4 The Z-score is the number of standard deviations above or below age-matched controls. A Z-score of less than -1.5 would be considered abnormal. References: 1. NIH Osteoporosis and Related Bone Diseases www osteo.org 2. International Society for Clinical Densitometry www iscd.org 3. National Osteoporosis Foundation www nof.org Electronically Signed: Herve Alejandra MD at 15:35 EDT , Service support ,
== END ==
PROVIDERS: PCP Family Medicine; Referring Provider Family Medicine; Visit Provider Family Medicine
DX: Z12.31 Encounter for screening mammogram for malignant neoplasm of breast (principal); M81.0 Age-related osteoporosis without current pathological fracture
CPT/HCPCS: 77063; 77067; 77080

== ENCOUNTER 2020-12-27 19:41 | Emergency (ER) | payer MEDICARE, BC, SELFPAY ==
[2020-12-27 19:42] VITALS: BP 156/87; PULSE 94; RESP 18; TEMP 36.5; O2SAT 97; BMI 36.1
--- NOTE | 2020-12-27 20:07 | CT_ITS ---
EXAM: CT Abdomen and Pelvis With Intravenous Contrast CLINICAL INDICATION: 75 years old, Female; abdominal pain TECHNIQUE: Helically acquired images were obtained of the abdomen and pelvis with intravenous contrast. This CT exam was performed using one or more of the following dose reduction techniques: automated exposure control, adjustment of the mA and/or kV according to patient size, and/or use of iterative reconstruction technique. This report was created using [employer] report generation technology. CONTRAST: IV 100mL [id number]-300 COMPARISON: None. FINDINGS: Lower thorax: Small bilateral pleural effusions. Atelectasis in the lung bases. Coronary artery calcifications. Small hiatal hernia. No cardiomegaly. ABDOMEN: Liver: Unremarkable. Homogeneous. No focal mass. Gallbladder and bile ducts: Unremarkable. No calcified gallstones. No gallbladder distention or wall edema. No intra- or extrahepatic biliary ductal dilation. Pancreas: Unremarkable. No focal cystic or solid mass. Spleen: Unremarkable. Normal size without focal cystic or solid mass. Adrenals: Unremarkable. No nodules. Kidneys and ureters: Unremarkable. Normal renal size and position. No hydronephrosis. Stomach and bowel: There is some focal mucosal thickening in the transverse colon just to the left of midline which is indeterminate. Similar appearance in the sigmoid colon. Scattered diverticula in the colon. No diverticulitis. No stomach or bowel distention. PELVIS: Appendix: Normal appendix. Bladder: Unremarkable. Reproductive: Unremarkable as visualized. No mass. ABDOMEN and PELVIS: Intraperitoneal space: Moderate volume of abdominal and pelvic ascites. There is extensive nodularity and irregular mass in the omentum consistent with metastatic disease. There is also abnormal nodularity and soft tissue in the low pelvis within the cul-de-sac worrisome for malignancy. No free air. Bones/joints: Degenerative changes lumbar spine. Grade 1 anterolisthesis of L5 on S1 which appears to be on a degenerative basis. No suspicious lytic or blastic abnormality. Soft tissues: Unremarkable. No discrete abdominal or pelvic wall hernia. Vasculature: Atherosclerotic disease. Abdominal aorta is non-dilated. Lymph nodes: Unremarkable. No enlarged lymph nodes. CT/Abdomen/Pelvis W IV Cont ONLY IMPRESSION: 1. Small bilateral pleural effusions. 2. Moderate volume of abdominal and pelvic ascites. 3. There is extensive nodularity and irregular mass in the omentum consistent with metastatic disease. There is also abnormal nodularity and soft tissue in the low pelvis within the cul-de-sac worrisome for malignancy. Correlation with history would be helpful. 4. There is some focal mucosal thickening in the transverse colon just to the left of midline which is indeterminate. Similar appearance in the sigmoid colon. Colonoscopy evaluation could be performed if indicated. Electronically Signed: Gato Lea MD at 21:14 EDT Tel , Service support ,
--- NOTE | 2020-12-27 20:08 | EDS_ITS ---
HPI HPI - GI History of Present Illness Chief Complaint: Abd Pain Informant: patient Abdominal Pain/Flank Pain Onset: Days Context: Gradual Onset Timing: Continuous Quality: Aching and Cramping Location: Diffuse Current Severity: Mild Maximum Severity: Mild Nausea/Vomiting/Emesis GI Symptom: Positive for Nausea; Negative for Vomiting Onset: Days Severity: Mild Diarrhea/Melena/Hematochezia GI Symptom: Positive for Diarrhea; Negative for Melena and Hematochezia Stool Quality: Positive for Watery Severity: Mild Associated Symptoms Associated Symptoms: Negative for Dysuria, Frequency, Hematuria and Urgency Narrative Narrative: 75-year-old female history of diverticulitis, stroke and diabetes. She is never had any surgery ever. States on Friday she had lower abdominal pain. Is now been for the last 4 days. States she feels miserable. Associated nausea but no vomiting. It is improved she has had loose stools. Watery diarrhea. Only 1 episode of diarrhea in the last 24 hours. No melena. No vomiting. She denies fever or chills. No dysuria. No significant weight loss. She is also complains of back pain associated with this. Back pain is worse with different positions. Denies any falls or trauma. Prior similar symptoms: Yes Recent Illness/Hospitalization: No PFSH PFSH Medical History Arthritis Back pain Diabetes Difficulty balancing Heart disease Hypertension Knee pain Limb weakness Neck pain Stroke Home Medications hydrochlorothiazide 25 mg PO DAILY 12/23/15 [History Last Taken Unknown] metformin 500 mg PO DAILY 12/23/15 [History Last Taken Unknown] pantoprazole 20 mg PO DAILY 12/23/15 [History Last Taken 06/07/16 08:00] potassium chloride 20 meq PO DAILY 12/23/15 [History Last Taken Unknown] acetaminophen 500 mg tablet 500 mg PO Q6H PRN 02/18/20 [History Last Taken Unknown] aspirin 81 mg tablet,delayed release 81 mg PO DAILY 02/18/20 [History Last Taken Unknown] gabapentin 100 mg capsule 600 mg PO TID cap 02/18/20 [History Last Taken Unknown] sertraline 100 mg tablet 150 mg PO DAILY tab 02/18/20 [History Last Taken Unknown] rosuvastatin 5 mg tablet 5 mg PO DAILY 03/29/20 [History Last Taken Unknown] sulindac 200 mg tablet 200 mg PO BID 03/29/20 [History Last Taken Unknown] albuterol sulfate 2 puff INHALATION Q4H PRN PRN 03/30/20 [History Last Taken Unknown] losartan 25 mg tablet 12.5 mg PO DAILY tab 08/04/20 [History Last Taken Unknown] cephalexin 500 mg PO Q6 #40 capsule 08/11/20 [Rx Last Taken Unknown] sulfamethoxazole-trimethoprim [Bactrim DS] 1 tab PO BID 10 Days #20 tab 08/11/20 [Rx Last Taken Unknown] ropinirole 0.5 mg tablet 0.5 mg PO DAILY #60 tab 09/18/20 [Rx Last Taken Unknown] Allergy/AdvReac Type Severity Reaction Status Date / Time meloxicam Allergy Unknown Verified 12/27/20 20:03 waldrop AdvReac Nausea/Vom/ Verified 12/27/20 20:03 Diarrhea ciprofloxacin AdvReac Vomiting Verified 12/27/20 20:03 methotrexate AdvReac Other Verified 12/27/20 20:03 simvastatin AdvReac Pain in Verified 12/27/20 20:03 joints Family History Sister Cancer Small cell Mother Asthma Heart disease Grandfather Myocardial infarction Grandmother Myocardial infarction Surgical History H/O tubal ligation Social History Smoking Status: Never smoker ROS ROS ED ROS Narrative Nausea, diarrhea, abdominal pain back pain. Review of Systems ROS Unobtainable: Denies due to encephalopathy Constitutional Constitutional ED: Denies chills or fever(s) ENT ENT ED: Denies ear pain or sore throat Cardiovascular Cardiovascular: Denies chest pain Respiratory/Chest Respiratory/Chest: Denies cough or dyspnea Gastrointestinal Gastrointestinal: Reports abdominal pain, diarrhea and nausea; Denies constipation, melena or vomiting Genitourinary Genitourinary ED: Denies dysuria Musculoskeletal Musculoskeletal: Denies myalgias Integumentary Denies rash Neurologic Neurologic: Denies headache(s) Psychiatric Psychiatric: Denies depression Endocrine Endocrinology: Denies polyuria Hematologic/Lymphatic Hematologic/Lymphatic: Denies easy bruising Allergic/Immunologic Allergic/Immunologic ED: Denies urticaria EXAM Physical Exam Narrative Exam Narrative: Older female no acute distress. Vital signs stable afebrile. HEENT exam unremarkable. Neck nontender no lymphadenopathy. Lungs clear to auscultation. Heart regular rhythm no murmur. Abdomen soft nondistended normal bowel sounds no peritoneal signs. Mildly diffusely tender. No Del Rosario sign. No McBurney's point tenderness. No signs of obstruction. No pulsatile mass. She is moving all 4 extremities. No edema. Back nontender. No CVA tenderness. Neurologically she is awake and alert. Moving all 4 extremities. No motor weakness. Const Vital Signs: 12/27/20 19:42 Temperature 97.7 F L Temperature Source Temporal Pulse Rate 94 Respiratory Rate 18 Blood Pressure 156/87 H Blood Pressure Mean 110 Pulse Ox 97 Oxygen Delivery Method Room Air Positive well nourished and well developed; Negative for cachectic, contractures or unkempt General Appearance ED: well developed and NAD; Negative for unkempt, cachectic, contractures or pallor Nutritional Appearance: Negative for cachectic HEENT Reports dry mucous membranes normocephalic and atraumatic Mouth ED: Yes dry mucous membranes Mouth: dry mucous membranes Eyes PERRL and EOMs intact bilaterally Neck no lymphadenopathy, supple and no JVD General: Negative for tenderness Resp normal respiratory effort and clear to auscultation bilaterally Auscultation: Negative for rales, rhonchi or wheezes Cardio regular rate, regular rhythm, S1 normal heart sound, S2 normal heart sound and no murmurs GI non-distended and no masses; Negative for non-tender Inspection: Negative for abdominal distention Auscultation: normoactive bowel sounds; Negative for hyperactive bowel sounds or hypoactive bowel sounds Palpation: soft and tender; Negative for guarding, rigid, hepatomegaly, splenomegaly, hernia, mass, pulsatile mass or rebound tenderness present Back/Spine no CVA tenderness Extremity full ROM General Extremety ED: Negative for edema or tenderness General Extremity: Negative for edema Neuro moves all extremities Sensorium / Orientation: alert, oriented to person, oriented to place and oriented to time; Negative for confused, lethargic or stuporous Motor Exam: strength 5/5 throughout Psych mental status grossly normal and thought process normal Appearance: Negative for unkempt Skin no wounds General Skin Exam: Negative for jaundice or pallor Lesions: no lesions Rashes: no rashes MDM MDM MDM Narrative Medical decision making narrative: Older female with diffuse abdominal pain, diarrhea and back pain. History of diverticulitis., CAT scan labs pending. Treated with IV fluids. She did not anything for pain or nausea. Repeat exam patient is doing well at 9:40 PM. We went over all of her test results. We went over my concern with the reading of her CAT scan and could there be an underlying malignancy in her abdomen or pelvis. I spoke to her primary care physician. She will follow the patient up. Patient will need to get into see one of the 2 local oncology group soon as possible for further evaluation. She may also need a colonoscopy. Patient understands all this and is comfortable being discharged home. Lab Data Attestation: I reviewed the patient's lab results. Lab results narrative: CBC White count 8. Hemoglobin 11.4 which is her baseline. Electrolytes gap of 6 normal BUN and creatinine of 0.8. Liver enzymes normal. Lipase of 56. Urinalysis shows 10-25 white cells 1+ bacteria. No nitrites. A urine culture will be sent. Labs: Laboratory Results - last 24 hr 12/27/20 12/27/20 12/27/20 20:15 20:15 20:15 WBC 8.4 RBC 4.07 L Hgb 11.4 L Hct 36.3 L MCV 89.2 MCH 28.0 MCHC 31.4 L RDW Std Deviation 42.7 RDW Coeff of Glenn 13.0 Plt Count 401 MPV 8.9 Immature Gran % (Auto) 0.400 Neut % (Auto) 73.8 H Lymph % (Auto) 18.0 L [place] % (Auto) 6.8 Eos % (Auto) 0.5 Baso % (Auto) 0.5 Absolute Neuts (auto) 6.2 Absolute Lymphs (auto) 1.52 Nucleated RBC % 0 Sodium 139 Potassium 3.7 Chloride 105 Carbon Dioxide 28.0 Anion Gap 6 BUN 13 Creatinine 0.80 Estim Creat Clear Calc 42.97 Est GFR (MDRD) Af Amer 89 Est GFR (MDRD) Non-Af 74 BUN/Creatinine Ratio 16.2 Glucose 94 Calcium 8.6 Total Bilirubin 0.40 AST 27 ALT 14 Alkaline Phosphatase 77 Total Protein 6.9 Albumin 3.0 L Globulin 3.9 Albumin/Globulin Ratio 0.8 L Lipase 56 L Urine Color Yellow Urine Clarity Sl. Cloudy Urine pH 5.0 Ur Specific Upper Tract 1.020 Urine Protein 15 H Urine Glucose (UA) Normal Urine Ketones 5 H Urine Occult Blood 10 H Urine Nitrite Negative Urine Bilirubin Negative Urine Urobilinogen 1 H Ur Leukocyte Esterase 500 H Urine RBC 0-5 SEEN Urine WBC 10-25 SEEN Ur Squamous Epith Cells 0-5 SEEN Urine Bacteria 1+ Urine Mucus 0 SEEN Radiography Diagnostic Testing: Clinical Impression(s) from Imaging Studies Abdomen/Pelvis CT 12/27/20 20:07 IMPRESSION: 1. Small bilateral pleural effusions. 2. Moderate volume of abdominal and pelvic ascites. 3. There is extensive nodularity and irregular mass in the omentum consistent with metastatic disease. There is also abnormal nodularity and soft tissue in the low pelvis within the cul-de-sac worrisome for malignancy. Correlation with history would be helpful. 4. There is some focal mucosal thickening in the transverse colon just to the left of midline which is indeterminate. Similar appearance in the sigmoid colon. Colonoscopy evaluation could be performed if indicated. Electronically Signed: Gato Lea MD at 21:14 EDT Tel , Service support , Discharge Plan Triage Chief Complaint: Abd Pain ED Provider: Miguel Pereyra Dx/Rx/DC Orders Clinical Impression: Abdominal pain, Abdominal ascites Instructions: Abdominal Pain Prescriptions: No Action acetaminophen [Tylenol Extra Strength] 500 mg tablet 500 mg PO Q6H PRN (Reason: pain or fever) RF: 0 aspirin [Adult Aspirin Regimen] 81 mg tablet,delayed release (DR/EC) 81 mg PO DAILY RF: 0 losartan 25 mg tablet 12.5 mg PO DAILY RF: 0 rosuvastatin 5 mg tablet 5 mg PO DAILY RF: 0 sulindac 200 mg tablet 200 mg PO BID RF: 0 metformin 500 MG tablet 500 mg PO DAILY RF: 0 pantoprazole 20 MG tablet 20 mg PO DAILY RF: 0 potassium chloride 20 MEQ packet 20 meq PO DAILY RF: 0 hydrochlorothiazide 25 MG tablet 25 mg PO DAILY RF: 0 sertraline 100 mg tablet 150 mg PO DAILY RF: 0 gabapentin 100 mg capsule 600 mg PO TID RF: 0 albuterol sulfate 1 PUFF inhaler 2 puff INHALATION Q4H PRN PRN (Reason: Sob &/Or Wheezing) RF: 0 sulfamethoxazole-trimethoprim [Bactrim DS] 800-160 mg tablet 1 tab PO BID 10 Days Qty: 20 RF: 0 cephalexin [cephalexin] 500 MG capsule 500 mg PO Q6 Qty: 40 RF: 0 ropinirole 0.5 mg tablet 0.5 mg PO DAILY Qty: 60 RF: 1 Primary Care Provider: Magi Farmer Referrals: Magi Farmer MD [Primary Care Provider] - 1 Day Activity Restrictions/Additional Instructions: I spoke with Dr. Marleny galloway. Call her office morning. You need to have further evaluation by one of the 2 local oncology groups. You have fluid in your abdominal cavity called ascites. You need to do have further evaluation to make sure that there is no cancer in your abdomen, pelvis or colon. Disposition Disposition: Home, Self Care
[2020-12-27] MEDS: 0.9% Normal Saline 1,000 ML 1000 ML IV (20:16)
[2020-12-27 20:21] LABS: Mucous, Urine 0 SEEN /hpf (<or=2+)
[2020-12-27 20:23] LABS: Absolute Lymphocyte Count 1.52 X10^3/uL (0.83-4.51); Absolute Neutrophil Count 6.2 X10^3/uL (2.0-7.7); Basophil# 0.04 X10^3/uL; Basophil% 0.5 % (0-1); Eosinophil# 0.04 X10^3/uL; Eosinophils% 0.5 % (0-5); Hematocrit 36.3 % (37-47); Hemoglobin 11.4 g/dL (12.0-15.0); Lymphocyte # 1.52 X10^3/ul (0.83-4.51); Mean Corp Hgb Conc 31.4 g/dL (32-36); Mean Corpuscular Volume 89.2 fL (81-99); Mean Platelet Vol. 8.9 fl (6.2-12.0); Monocyte# 0.57 X10^3/uL; Monocyte% 6.8 % (0-10); NRBC Flagged by Analyzer 0 % (0-5); Neutrophil # 6.23 X10^3/uL (2.7-7.7); Neutrophil % 73.8 % (47-70); Platelet Count 401 K/mm3 (150-450); RBC Distribution Width SD 42.7 fl (35.1-43.9); Red Blood Count 4.07 M/mm3 (4.2-5.4); White Blood Count 8.4 K/mm3 (4.4-11.0)
[2020-12-27 20:24] LABS: Color, Urine Yellow (Yellow); Glucose, Dipstick Normal (Normal); Ketone-Dipstick 5 mg/dl (Negative); Leukocyte Esterase-Dipstick 500 /ul (Negative); Nitrite-Dipstick Negative (Negative); Occult Blood-Urine 10 /ul (Negative); Protein-Dipstick 15 mg/dl (Negative); Urine Bilirubin Dipstick Negative (Negative); Urine Clarity Sl. Cloudy (Clear); Urine Urobilinogen 1 mg/dl (Normal)
[2020-12-27 20:36] LABS: Squamous Epithelial Cells - UA 0-5 SEEN /hpf (5-10); White Blood Cells 10-25 SEEN /hpf (0-5)
[2020-12-27 20:38] LABS: Bacteria 1+ /hpf (None Seen); Red Blood Cells-Urine 0-5 SEEN /hpf (0-5)
[2020-12-27 20:45] LABS: ALB/GLOB Ratio 0.8 RATIO (0.9-2.4); AST(SGOT) 27 U/L (15-37); Alanine Aminotransfer ALT/SGPT 14 U/L (13-56); Alkaline Phosphatase 77 U/L (45-117); Anion Gap 6 (5-15); BUN 13 mg/dL (7-18); BUN/Creat Ratio 16.2 RATIO (10-20); Calcium,Total 8.6 mg/dL (8.5-10.1); Chloride 105 mmol/L (98-107); EST Glomerular Filtration Rate 74 mL/min (>60); Est Glom Filt Rate - Afr Amer 89 mL/min (>60); Estimated Creatinine Clearance 42.97 ml/min; Globulin 3.9 g/dL (2.2-4.2); Glucose 94 mg/dL (74-106); Lipase 56 U/L (73-393); Potassium 3.7 mmol/L (3.5-5.1); Protein, Total 6.9 g/dL (6.4-8.2); Sodium Level 139 mmol/L (136-145)
[2020-12-27 22:00] VITALS: BP 147/79; PULSE 83; RESP 16; O2SAT 98
== END 2020-12-27 22:04 | disposition home or self-care (01) ==
PROVIDERS: Emergency Provider Emergency Medicine; PCP Family Medicine
DX: R10.30 Lower abdominal pain, unspecified (principal); R18.8 Other ascites
CPT/HCPCS: 74177; 80053; 81001; 83690; 85025; 87086; 87088; 87426; 96360; 96361; 99283; J7030; Q9967; A4216

== ENCOUNTER → 2020-12-28 16:06 | Outpatient (CLI) | payer MEDICARE, BC, SELFPAY ==
--- NOTE | 2020-12-28 16:08 | US_ITS ---
INDICATION: ASCITES EXAMINATION: US Pelvis Non OB Complete With Transvaginal Imaging TECHNIQUE: Transabdominal and transvaginal pelvic ultrasound was performed. Grayscale, spectral waveform, and color flow Doppler evaluation of the adnexa. COMPARISON: None. FINDINGS: UTERUS: Anteverted. The uterus measures 6.4 x 3.3 x 2.8 cm. There is no uterine mass. The endometrial stripe measures 2 mm in AP diameter which is within normal limits. RIGHT OVARY: Not well visualized. There is an ill-defined heterogeneous isoechoic mass measuring 6.4 x 3.2 x 3.6 cm in the right adnexa. LEFT OVARY: Not well visualized. There is an ill-defined heterogeneous isoechoic mass measuring 2.5 x 1.8 x 4.1 cm and the left adnexa. FREE FLUID: Moderate volume ascites.. US/Pelvic (Non ) IMPRESSION: Bilateral adnexal masses, likely arising from the ovaries, concerning for primary ovarian tumors. Moderate volume ascites. Electronically Signed: Gerardo Ryan MD at 18:02 EDT Tel , Service support ,
--- NOTE | 2020-12-28 16:08 | US_ITS ---
INDICATION: ASCITES EXAMINATION: US Pelvis Non OB Complete With Transvaginal Imaging TECHNIQUE: Transabdominal and transvaginal pelvic ultrasound was performed. Grayscale, spectral waveform, and color flow Doppler evaluation of the adnexa. COMPARISON: None. FINDINGS: UTERUS: Anteverted. The uterus measures 6.4 x 3.3 x 2.8 cm. There is no uterine mass. The endometrial stripe measures 2 mm in AP diameter which is within normal limits. RIGHT OVARY: Not well visualized. There is an ill-defined heterogeneous isoechoic mass measuring 6.4 x 3.2 x 3.6 cm in the right adnexa. LEFT OVARY: Not well visualized. There is an ill-defined heterogeneous isoechoic mass measuring 2.5 x 1.8 x 4.1 cm and the left adnexa. FREE FLUID: Moderate volume ascites.. US/Transvaginal Non- IMPRESSION: Bilateral adnexal masses, likely arising from the ovaries, concerning for primary ovarian tumors. Moderate volume ascites. Electronically Signed: Gerardo Ryan MD at 18:02 EDT Tel , Service support ,
== END ==
PROVIDERS: PCP Family Medicine; Referring Provider Family Medicine; Visit Provider Family Medicine
DX: R18.8 Other ascites (principal)
CPT/HCPCS: 76830; 76856

== ENCOUNTER 2021-01-23 11:51 | Day surgery (SDC) | payer MEDICARE, BC, SELFPAY ==
[2021-01-23] MEDS: Lactated Ringers 1,000 ML 15 ML IV (13:00)
[2021-01-23 13:13] VITALS: BP 117/66; PULSE 87; RESP 16; TEMP 36.8; O2SAT 94; BMI 34.2
--- NOTE | 2021-01-23 13:32 | PCM.HP.BLA ---
History and Physical Date of Admission: 01/23/21 Intake Vital Signs 01/22/21 14:27 Height 5 ft Weight: 176 lb BMI 34.3 BP 153/83 H Blood Pressure Location Rt brachial Position Sitting Respiration 18 Intake Visit Reasons: PORT PLACEMENT Chief Complaint: port Program Paraprofessional Required: No Is patient in pain?: No Allergies aspirin Adverse Reaction (Mild, Verified 01/22/21 14:18) Other lisinopril Adverse Reaction (Mild, Verified 01/22/21 14:18) Other meloxicam Adverse Reaction (Mild, Verified 01/22/21 14:18) Fatigue waldrop Adverse Reaction (Verified 01/22/21 14:18) Nausea/Vom/Diarrhea ciprofloxacin Adverse Reaction (Verified 01/22/21 14:18) Vomiting methotrexate Adverse Reaction (Verified 01/22/21 14:18) Other rosuvastatin [From Crestor] Adverse Reaction (Verified 01/22/21 14:18) Other simvastatin Adverse Reaction (Verified 01/22/21 14:18) Pain in joints Medications hydrochlorothiazide 25 mg PO DAILY 12/23/15 [History Confirmed 01/22/21] metformin 500 mg PO DAILY 12/23/15 [History Confirmed 01/22/21] acetaminophen 500 mg tablet 500 mg PO Q6H PRN 02/18/20 [History Confirmed 01/22/21] aspirin 81 mg tablet,delayed release 81 mg PO DAILY 02/18/20 [History Confirmed 01/22/21] albuterol sulfate 2 puff INHALATION Q4H PRN PRN 03/30/20 [History Confirmed 01/22/21] losartan 25 mg tablet 12.5 mg PO DAILY tab 08/04/20 [History Confirmed 01/22/21] ropinirole 0.5 mg tablet 0.5 mg PO DAILY #60 tab 09/18/20 [Rx Confirmed 01/22/21] pantoprazole 20 mg tablet,delayed release 20 mg PO DAILY 12/29/20 [History Confirmed 01/22/21] potassium chloride 20 mEq oral packet 20 meq PO DAILY 12/29/20 [History Confirmed 01/22/21] vitamins A,C,J-fded-alrhcu 14,320 unit-226 mg-200 unit capsule 1 cap PO BID 12/29/20 [History Confirmed 01/22/21] gabapentin 100 mg capsule 600 mg PO BID cap 01/01/21 [History Confirmed 01/22/21] meloxicam 7.5 mg tablet 7.5 mg PO DAILY 01/01/21 [History Confirmed 01/22/21] rosuvastatin 5 mg tablet 5 mg PO DAILY 01/01/21 [History Confirmed 01/22/21] sertraline 100 mg tablet 200 mg PO DAILY tab 01/01/21 [History Confirmed 01/22/21] lidocaine-prilocaine 2.5 %-2.5 % topical cream 1 applic TOPICAL ONCE PRN 30 Days #30 g 01/22/21 [Rx Confirmed 01/22/21] ondansetron 8 mg disintegrating tablet 8 mg PO Q8H PRN #30 tab 01/22/21 [Rx Confirmed 01/22/21] prochlorperazine maleate 10 mg tablet 10 mg PO Q6H PRN #30 tab 01/22/21 [Rx Confirmed 01/22/21] PFSH Medical History Arthritis ASD (atrial septal defect) Back pain Carotid stenosis, bilateral Cataracts, bilateral COVID-19 Depression Diabetes Difficulty balancing Encounter for education Fibromyalgia GERD (gastroesophageal reflux disease) Heart disease Hypertension Inflammatory polyarthritis Knee pain Limb weakness Neck pain Osteopenia RAD (reactive airway disease) Stroke TIA (transient ischemic attack) Surgical History H/O cataract removal with insertion of prosthetic lens H/O right breast biopsy H/O tubal ligation Hx of breast biopsy Tubal ligation status Family History Mother Asthma Heart disease Grandfather Myocardial infarction Grandmother Myocardial infarction Other CVA (cerebral vascular accident) Cancer Hypertension Psychiatric care Thyroid disorder Social History household members: family Smoking Status: Never smoker alcohol intake: never substance use type: does not use caffeine: Yes Type: carbonated beverages what type of physical activity do you participate in: none HPI HPI HPI: YUNG GAUTHIER, is a 75 F who presents to the office today for port placement. Patient is ovarian cancer and requires port for chemotherapy. ROS General General: Yes fatigue; No weight change, appetite, colon cancer, breast cancer or weakness HEENT HEENT: Yes eye injury and eye surgery; No difficulty swallowing, swollen glands or hoarseness Endo Endocrine: Yes diabetes mellitus; No thyroid disease, thyroid cancer, Hair loss, heat intolerance or cold intolerance Skin Skin: No rash or changing moles Breast Breast: No left breast lump, right breast lump, nipple discharge, breast pain, abnormal mammogram, abnormal US or breast enlargement Musc Musculoskeletal: Yes back problems and arthritis; No rheumatoid arthritis, gout or joint pain Cardio Cardiovascular: Yes high blood pressure and heart attack; No murmur, pacemaker, heart disease, atrial fibrillation, heart stent, palpitations, shortness of breat with exertion or chest pain Psych Psychiatric: No depression, anxiety or hearing voices Resp Respiratory: Yes shortness of breath, No sleep apnea, No cough, No COPD, Yes asthma, No emphysema and No wheezing Gastro Gastrointestinal: No abdominal pain, No nausea or vomiting, Yes diarrhea, No constipation, No blood in stool, Yes acid reflux, No hemorrhoids, No ulcers, No gallbladder problem and No black,tarry stools [place] Hematologic: No blood thinners, No blood disorders, No bleeding, No anemia and No blood clots Neuro Neurologic: No system reviewed and no additional complaints, except as documented, No as per HPI, No abnormal gait, No abnormal hearing, No abnormal movements, No abnormal speech, No behavioral changes, No burning sensations, No confusion, No convulsions, No disequilibrium, No dizziness, No localized weakness, No frequent falls, No headache(s), No lack of coordination, No loss of vision, No memory loss, No numbness, No other visual disturbances, No radicular pain, No restless legs, No sensory deficit, No syncope, No tingling, No tremor(s), No weakness and No other Exam Const General: cooperative Orientation: alert and oriented x3 HENME Head: normal to inspection Neck Neck: normal visual inspection and full ROM Chest Chest palpation & inspection: normal inspection of the chest Resp Effort & Inspection: normal respiratory effort Auscultation: clear to auscultation bilaterally Cardio Rate: regular rate Rhythm: regular rhythm GI Inspection: non-distended Palpation: soft and nontender Skin General: no rashes or lesions noted Neuro General: patient alert and patient oriented x3 Extrem General: full ROM Psych Appearance: grossly normal Mental Status: mental status grossly normal Assessment and Plan Assessment and Plan (1) Ovarian cancer: Status: Acute Qualifiers: Laterality: bilateral Qualified Code(s): C56.3 - Malignant neoplasm of bilateral ovaries (2) Encounter for adjustment and management of vascular access device: Status: Acute Plan - Dr. Isaiah Allen MD: The patient requires port placement for chemotherapy. I discussed port placement with her in detail. I discussed the procedure as well as the risks including but not limited to bleeding, infection, pneumothorax or DVT. Patient understands the risks and is when to proceed. Plan for port placement tomorrow for treatment Friday. I will leave the patient accessed. Isaiah Allen MD Pager: [facility] [address] [place] [address], [address] [place] [address] Office: I have re-examined the patient. There are no clinical changes since date of exam.
[2021-01-23 13:55] LABS: Bedside Glucose 86 mg/dL (70-110)
[2021-01-23] MEDS: Cefazolin 2 GM in 0.9% Normal Saline 100 ML IV (14:02)
[2021-01-23] MEDS: Lidocaine 1% /Epi 1:100 (20ml) 20 ML Vial (14:10)
[2021-01-23 14:40] VITALS: BP 117/66; BP 121/65; PULSE 68; RESP 16; TEMP 36.6; O2SAT 92
[2021-01-23 14:45] VITALS: BP 109/55; BP 117/66; PULSE 93; RESP 16; O2SAT 93
[2021-01-23 14:50] VITALS: BP 117/66; BP 98/59; PULSE 96; RESP 16; O2SAT 97
--- NOTE | 2021-01-23 14:52 | RAD_ITS ---
STUDY: X-RAY CHEST REASON FOR EXAM: Female, 75 years old. Line placement -- in pacu TECHNIQUE: Single AP portable view of the chest. COMPARISON: Comparison is made with prior study dated 01/01/2021. FINDINGS: A right-sided sagrario catheter has been placed with the tip at the junction of the superior vena cava and right atrium. Consolidation in the posterior medial segment of the left lower lobe. Questionable faint nodular density in the left upper lobe. Blunting of left costophrenic angle. Normal size heart. Normal mediastinum and vinayak. Normal visualized pulmonary arteries. There is atherosclerotic calcification of the aortic arch with tortuosity. There are diffuse degenerative changes of the visualized thoracic spine. Normal visualized ribs, clavicles, and shoulders. There is no demonstrated abnormality of the visualized soft tissue structures of the upper abdomen. RAD/CXR for Line Placement IMPRESSION: The tip of the right sagrario catheter is at the junction of the superior vena cava and right atrium. Consolidation in the posterior medial segment of the left lower lobe with blunting of the left costophrenic angle. Electronically Signed: Herve Alejandra MD at 15:13 EST , Service support ,
--- NOTE | 2021-01-23 14:52 | PCM.OPRPT ---
Problems Associated Problem List Diagnoses (1) Ovarian cancer: (2) Encounter for adjustment and management of vascular access device: Report of Operation Date of Procedure: 01/23/21 Pre-Operative Diagnosis: Ovarian cancer need for vascular access for chemotherapy Post-Operative Diagnosis: Same Surgery/Procedure Performed:: Ultrasound and fluoroscopy guided right chest port placement utilizing right IJ Description of Procedure: After obtaining informed consent patient was brought back to the operating room MAC anesthesia was induced and the right chest and neck were prepped in normal sterile fashion. Ultrasound was used to evaluate both IJs and the right IJ was selected. Next, using a needle, the right IJ was accessed and a guidewire was passed on into the superior vena cava under fluoroscopy guidance. A small incision was made over the puncture site and the dilator introducer was placed over the guidewire. Next this was capped and the pocket was made for the port. 1% lidocaine with epinephrine was injected in the proposed port site. An incision was made with scalpel. Electrocautery was used to make a pocket under the skin and subcutaneous tissue. Hemostasis was obtained. Next, the catheter was tunneled up to the neck incision site and placed through the introducer. The peel-away introducer was removed and the position of the catheter was confirmed on fluoroscopy. Next, the catheter was trimmed and attached to the port with the locking device. Interrupted 2-0 Vicryl sutures were used to anchor the port to the chest wall and then the port was placed inside the pocket. The pocket was then flushed with saline and the port irrigated with saline. There was good blood return and the port flushed easily. The skin was closed with subcutaneous interrupted 3-0 Vicryl sutures. A single 3-0 Vicryl sutures placed under the skin at the neck incision site. The port was then accessed and blood was once again drawn back with easy drawing and easy flushing of saline. Heparin was then instilled into the port using 3 cc of heparin. The port was left accessed. Steri-Strips were placed as well as op sites. Patient tolerated procedure well, was taken to PACU in stable condition. Chest x-ray will be obtained. Grafts/Implants Used: 8 Guyanese PowerPort Admit VTE Documentation VTE Mechan Device Prophylaxis: SCD's
[2021-01-23 15:00] VITALS: BP 108/58; BP 117/66; PULSE 92; RESP 18; TEMP 36.4; O2SAT 95
--- NOTE | 2021-01-23 15:03 | EX.PCM.DISCH ---
Discharge Instructions Procedure Port-A-Cath Diet Discharge Diet: Light diet - advance as tolerated (Pain medication may cause nausea. You should typically eat light foods as you take your pain medication.) Activity Discharge Activity: Return to Normal Activity and May Shower (with your bandage in place in 1-2 days after surgery. DO NOT SHOWER WHEN YOUR PORT IS ACCESSED.) Dressing / Incision Call your doctor if your incision/area has: Continuous Slow Oozing, Sudden Increased Bleeding, Increased Pain/ Swelling, Increased Redness and Foul Smelling Discharge Call your doctor if you observe: Fever of 101 or Higher Remove Dressing in: 2 days Cleanse incision/area with: Soap & Water Follow Up Care Please Follow Up With: Isaiah Allen MD When: as needed [phone] Test Results: Test results from this visit will be discussed in further detail at your follow-up appointment, if applicable. Discharge Plan Admission Attending Provider: Isaiah Allen Primary Care Provider: Magi Farmer Discharge Orders/Prescriptions Prescriptions: No Action acetaminophen [Tylenol Extra Strength] 500 mg tablet 500 mg PO Q6H PRN (Reason: pain or fever) RF: 0 aspirin [Adult Aspirin Regimen] 81 mg tablet,delayed release (DR/EC) 81 mg PO DAILY RF: 0 losartan 25 mg tablet 12.5 mg PO QHS RF: 0 rosuvastatin 5 mg tablet 5 mg PO DAILY RF: 0 meloxicam [Mobic] 7.5 mg tablet 7.5 mg PO DAILY RF: 0 potassium chloride [Klor-Con] 20 mEq packet 20 meq PO DAILY RF: 0 pantoprazole 20 mg tablet,delayed release (DR/EC) 20 mg PO DAILY RF: 0 PreserVision AREDS [id number] capsule 1 cap PO BID RF: 0 lidocaine-prilocaine 2.5-2.5 % cream 1 applic topical ONCE PRN (Reason: port access) 30 Days Qty: 30 RF: 2 ondansetron 8 mg tablet,disintegrating 8 mg PO Q8H PRN (Reason: nausea and vomiting) Qty: 30 RF: 2 prochlorperazine maleate 10 mg tablet 10 mg PO Q6H PRN (Reason: nausea and vomiting) Qty: 30 RF: 2 metformin 500 MG tablet 500 mg PO QHS RF: 0 hydrochlorothiazide 25 MG tablet 25 mg PO DAILY RF: 0 sertraline 100 mg tablet 200 mg PO DAILY RF: 0 gabapentin 100 mg capsule 600 mg PO BID RF: 0 albuterol sulfate 1 PUFF inhaler 2 puff INHALATION Q4H PRN PRN (Reason: Sob &/Or Wheezing) RF: 0 ropinirole 0.5 mg tablet 0.5 mg PO DAILY Qty: 60 RF: 1 Referrals / Follow Up: Magi Farmer MD [Primary Care Provider] - Disposition Disposition (needs filled in before D/C Order can be placed): Home, Self Care
[2021-01-23 16:23] VITALS: BP 117/66; BP 134/74; PULSE 90; RESP 16; TEMP 36.8; O2SAT 95
== END 2021-01-23 16:20 | disposition home or self-care (01) ==
LOC: SDC 11:53 → AC 11:59
PROVIDERS: PCP Family Medicine; Visit Provider Surgery
PROC: (CPT 36561; principal; 2021-01-23 13:45)
DX: Z45.2 Encounter for adjustment and management of vascular access device (principal); C56.3 Malignant neoplasm of bilateral ovaries; I10 Essential (primary) hypertension; Z79.1 Long term (current) use of non-steroidal anti-inflammatories (NSAID); Z79.82 Long term (current) use of aspirin; Z79.84 Long term (current) use of oral hypoglycemic drugs; Z88.1 Allergy status to other antibiotic agents; Z88.8 Allergy status to other drugs, medicaments and biological substances; Z88.6 Allergy status to analgesic agent; Z91.018 Allergy to other foods; Z86.16 Personal history of COVID-19; Z86.73 Personal history of transient ischemic attack (TIA), and cerebral infarction without residual deficits; K21.9 Gastro-esophageal reflux disease without esophagitis; E11.9 Type 2 diabetes mellitus without complications; F32.A Depression, unspecified
CPT/HCPCS: 00532; 36561; 71045; 77001; 82962; J7120; C1788

== ENCOUNTER 2021-04-06 14:48 | Outpatient (CLI) | payer MEDICARE, BC, SELFPAY ==
--- NOTE | 2021-04-06 14:51 | CT_ITS ---
STUDY: CT Abdomen And Pelvis W/ Contrast Injection 04/06/2021 5:54 PM REASON FOR EXAM: Female, 75 years old. ABDOMINAL PAIN NEOPLASM OVARIES TECHNIQUE: Transaxial images were obtained with oral contrast, and with Oral IV Readi-CAT 100mL Isovue-300 intravenous contrast. Individualized dose optimization techniques were used for this CT. COMPARISON: 01.05.21 FINDINGS: There are atherosclerotic calcifications of visualized coronary arteries. The visualized portions of the heart are within normal limits. Stable hypodensity in the right lobe of the liver. There are multiple gallstones. Normal spleen. Normal pancreas. Normal bilateral adrenal glands. No acute findings of the right kidney. No acute findings of the left kidney. Focal wall thickening of the antrum of stomach. This can suggest a gastritis. Normal small intestine. There are multiple colonic diverticula consistent with diverticulosis. There is non-visualization of the appendix. Significant improvement in the lower abdominal mesenteric nodularities. There are calcifications of the abdominal aorta. This is consistent for atherosclerotic disease. There is no abdominal aortic aneurysm. Normal inferior vena cava. Subcentimeter mesenteric lymph nodes. Normal urinary bladder. There is atrophy of the uterus. 13 mm spiculated mass in the left pelvic sidewall. Series 2 image 32. Normal abdominal wall. There are diffuse degenerative changes of the visualized lumbar spine. There are bilateral pars articularis defects at L5-S1. There is a Grade 1 anterolisthesis of L5 on S1. There is bilateral neural foraminal stenosis at L4-5 and L5-S1. IMPRESSION: (NOT LISTED IN ORDER OF SIGNIFICANCE) Gastritis. 13 mm spiculated mass in the left pelvic sidewall. Series 2 image 32. Neoplasm is of concern. Improvement in the lower abdominal omental caking. There are multiple gallstones. Other findings as above. Electronically Signed: Jose Marley MD at 17:58 EST , CT/Abdomen/Pelvis WITH Contrast
[2021-04-06] MEDS: 0.9 % NaCl (Sterile) Posiflush 10 mL IV (15:15)
== END 2021-04-06 23:59 | disposition short-term general hospital (02) ==
LOC: CT 14:49
PROVIDERS: PCP Family Medicine; Referring Provider Obstetrics & Gynecology; Visit Provider Obstetrics & Gynecology
DX: C56.3 Malignant neoplasm of bilateral ovaries (principal); C78.6 Secondary malignant neoplasm of retroperitoneum and peritoneum
CPT/HCPCS: 74177; Q9967; A4216

== ENCOUNTER → 2021-08-09 | Outpatient (CLI) | payer MEDICARE, BC, SELFPAY ==
--- NOTE | 2021-08-09 07:54 | CDU_ITS ---
Reason For Study: carotid stenosis Rt. Velocities/BP Lt. Velocities/BP Prox CCA 111.2/22.6 cm/sec. Prox CCA 100.3/23.4 cm/sec. Mid CCA 78.6/26.5 cm/sec. Mid CCA 79.4/23.4 cm/sec. Dist CCA 73.4/22.6 cm/sec. Dist CCA 57.4/17.9 cm/sec. Prox ICA 146.7/44.4 cm/sec. Prox ICA 64.0/23.4 cm/sec. Mid ICA 139.4/46.2 cm/sec. Mid ICA 68.4/25.6 cm/sec. Dist ICA 113.8/33.4 cm/sec. Dist ICA 83.8/22.3 cm/sec. Rt. ICA/CCA = 1.9. Lt. ICA/CCA = 1.1. Prox ECA 68.2/9.5 cm/sec. Prox ECA 65.1/12.4 cm/sec. Rt. Vert. 47.6/17.9 cm/sec. Lt. Vert. 59.6/25.6 cm/sec. Right Extracranial There is homogeneous, smooth atherosclerotic plaque noted in the right common carotid artery. There is heterogeneous, irregular atherosclerotic plaque noted in the right internal carotid artery. There is intimal thickening but no significant atherosclerotic plaque noted in the right external carotid artery. Antegrade flow is noted in the right vertebral artery. Left Extracranial There is heterogeneous, smooth atherosclerotic plaque noted in the left common carotid artery. There is heterogeneous, irregular atherosclerotic plaque noted in the left internal carotid artery. There is intimal thickening but no significant atherosclerotic plaque noted in the left external carotid artery. Antegrade flow is noted in the left vertebral artery. Procedure Carotid Duplex [id number]. This is a Carotid Duplex examination using B-mode, color flow and specral Doppler. The exam was diagnostic. Exam performed in department. VL/Carotid Duplex Ultrasound Interpretation Summary Irregular calcific plaque at the proximal right internal carotid artery with 50 to 69% stenosis. Less than 50% stenosis right external carotid artery Focal heterogenous calcific plaque of the proximal left internal carotid artery with less than 50% stenosis Less than 50% stenosis left external carotid artery Patent and antegrade vertebral arteries bilaterally Slight advancement of right internal carotid artery occlusive disease from the previous screening examination of April 25, 2020 where there was less than 50% stenosis of the right internal carotid artery at that time Ordering Physician: Magi Farmer Performed By: Oziel Beltran RVT
== END | disposition home or self-care (01) ==
LOC: CVS 07:53
PROVIDERS: PCP Family Medicine; Referring Provider Family Medicine; Visit Provider Family Medicine
DX: I65.23 Occlusion and stenosis of bilateral carotid arteries (principal)
CPT/HCPCS: 93880

== ENCOUNTER → 2021-08-24 | Outpatient (CLI) | payer MEDICARE, BC, SELFPAY ==
--- NOTE | 2021-08-24 07:54 | CT_ITS ---
STUDY: CT CHEST, ABDOMEN T PELVIS WITH CONTRAST REASON FOR EXAM: Female, 76 years old. ASSESS OVARIAN CANCER , JUST FINISHED CHEMO. RADAMES/BSO WITH OMEN ECTOMY RADIATION DOSAGE (If Supplied By Facility): CTDIvol = ( 15.36 ) mGy, DLP = ( 1329.92 ) mGycm TECHNIQUE: Transaxial imaging was performed following intravenous administration of IV 75mL Isovue-300. Multiplanar coronal and sagittal images were reformatted. Individualized dose optimization techniques were used for this CT. COMPARISON: Comparison is made with prior study dated 04/06/2021. FINDINGS: CHEST A right-sided Port-A-Cath is seen with the tip in the superior vena cava. Small bilateral benign appearing axillary lymph nodes. Minimal increased markings with focal bronchiectasis in the posterior medial segment of the right lower lobe. Minimal nodular pleural thickening along the posterior aspects of both lower lobes. Normal heart and pericardium. Normal mediastinum. Normal hilar regions. Normal unenhanced pulmonary arteries. There is atherosclerotic calcification of the aortic arch and descending thoracic aorta. There are multi-level degenerative changes of the thoracic spine. ABDOMEN Stable 3 mm cyst in the lateral midportion of the right lobe of the liver. Normal gallbladder and extrahepatic biliary system. Normal spleen. Normal pancreas. Normal bilateral adrenal glands. Normal right kidney. Normal left kidney. Normal visualized stomach. Normal small intestine. There are multiple colonic diverticula consistent with diverticulosis. There is non-visualization of the appendix. There is diffuse atherosclerotic calcification of the abdominal aorta, without a demonstrated aneurysm. Normal inferior vena cava. Normal retroperitoneum. PELVIS Normal urinary bladder. The patient is status post hysterectomy. There is no pelvic fluid. 2.2 cm x 1.7 cm spiculated soft tissue density in the left sidewall of the pelvis as seen on axial image #94 and coronal image #78. . There is diffuse atherosclerotic calcification of the pelvic arteries. Normal abdominal wall. There are diffuse degenerative changes of the visualized lumbar spine. Grade 1 anterolisthesis of L5 on S1 most likely secondary to facet joint osteoarthritis. CT/CT Chest, Abd, Pel w/Contrast IMPRESSION: Essentially stable examination. Electronically Signed: Herve Alejandra MD at 9:00 EDT ,
[2021-08-24] MEDS: 0.9% Saline Lock 10 ML Syringe IV (08:12)
== END | disposition home or self-care (01) ==
LOC: CT 07:53
PROVIDERS: PCP Family Medicine; Referring Provider Nurse Practitioner Family; Visit Provider Nurse Practitioner Family
DX: C56.9 Malignant neoplasm of unspecified ovary (principal)
CPT/HCPCS: 71260; 74177; Q9967; A4216

== ENCOUNTER → 2021-11-29 | Outpatient (CLI) | payer MEDICARE, BC, SELFPAY ==
--- NOTE | 2021-11-29 08:21 | BI_ITS ---
MAMMOGRAPHY - BILATERAL SCREENING 3-D TOMOSYNTHESIS REASON FOR EXAM: Female, 76 years old. SCREENING PERTINENT HISTORY: No significant family history. TECHNIQUE: 2-D mammograms and 3-D Tomosynthesis of the breast (s) were performed. CAD was performed. COMPARISON: 11/28/2020 FINDINGS: The breast composition is composed of scattered fibroglandular density. Scattered benign calcifications are seen. No dense spiculated masses or suspicious microcalcifications are identified. No architectural distortion is identified. There is no skin thickening or retraction. There has been no significant change since the prior study. BI/SCRN MAMM (CAD)W/MILAGROS BILAT IMPRESSION: No mammographic signs of malignancy. Routine yearly mammograms recommended. ASSESSMENT CATEGORY: BIRADS Category 1: Negative. A letter regarding these results will be sent to the patient by the facility within 30 days. FOLLOW UP RECOMMENDATION: Yearly follow up mammogram recommended. (A) Approximately 10% of breast cancers are not detected by mammography. A normal mammogram should not delay biopsy of a clinically suspicious abnormality. Electronically Signed: Matthew Krishnan MD at 9:43 EDT ,
== END | disposition home or self-care (01) ==
LOC: OPBI 08:20
PROVIDERS: PCP Family Medicine; Visit Provider Family Medicine
DX: Z12.31 Encounter for screening mammogram for malignant neoplasm of breast (principal)
CPT/HCPCS: 77063; 77067

== ENCOUNTER 2021-12-06 10:39 | Inpatient (IN) | payer MEDICARE, BC, SELFPAY ==
[2021-12-06] VITALS (39 sets, daily range): BP systolic 111–167; BP diastolic 62–98; PULSE 63–84; RESP 10–25; TEMP 35.5–36.7; O2SAT 93–99; BMI 34.0; BMI 34.9
--- NOTE | 2021-12-06 11:01 | CT_ITS ---
STUDY: CT HEAD STROKE PROTOCOL W/O CONTRAST INJECTION REASON FOR EXAM: Female, 76 years old. Neuro deficit, acute, stroke suspected RADIATION DOSAGE (If Supplied By Facility): CTDIvol = ( 44.99 ) mGy, DLP = ( 863.6 ) mGycm TECHNIQUE: Transaxial CT imaging of the brain was performed without administration of intravenous contrast material. Individualized dose optimization techniques were used for this CT. COMPARISON: Comparison is made with prior study 12/23/2015. FINDINGS: Normal soft tissue structures. Normal calvarium. There is mild cerebral atrophy with widening of the extra-axial spaces and ventricular dilatation. There are areas of decreased attenuation within the white matter tracts of the supratentorial brain, consistent with microvascular disease changes. Focal areas of decreased attenuation is seen in the superior aspect of the right posterior parietal lobe. Early ischemic changes should be ruled out. Normal basal ganglia and thalami. Normal brainstem. Normal cerebellum. There is no intracranial hemorrhage. There are no findings of an acute ischemic infarction. Dense atherosclerotic plaque formation of the vertebral arteries and the basilar tip. Calcified plaques seen in the cavernous portions of both carotid arteries. Normal visualized paranasal sinuses. ASPECT score: 9 CT/STROKE Brain/Head without Cont IMPRESSION: Chronic involutional changes of the brain. Focal area of decreased attenuation is seen in the superior aspect of the right posterior parietal lobe. Early ischemic changes should be ruled out. N.B. : The above Results were Read Back by Herve Alejandra MD to Pablo Gavin and understanding confirmed on 12/06/2021 11:21:50 (ET). Electronically Signed: Herve Alejandra MD at 11:23 EDT ,
--- NOTE | 2021-12-06 11:01 | EKG12_ITS ---
Test Reason : Blood Pressure : / mmHG Vent. Rate : 074 BPM Atrial Rate : 074 BPM P-R Int : 216 ms QRS Dur : 072 ms QT Int : 390 ms P-R-T Axes : 028 -21 024 degrees QTc Int : 432 ms Sinus rhythm with 1st degree A-V block Inferior infarct , age undetermined Anterior infarct , age undetermined Abnormal ECG Confirmed by ARY SIMS, CHAKA ([id number]), editor dictionary JESÚS CARPENTER ([id number]) on 12/07/2021 10:10:55 AM Referred By: ALISIA Confirmed By:CHAKA MCALLISTER MD
--- NOTE | 2021-12-06 11:03 | ED.VIS.STROK ---
HPI History of Present Illness Chief Complaint: Neuro S/Sx Informant: patient Onset/Context/Timing Onset: Today Context: Sudden Onset Quality and Location: Positive for Left Arm Parasthesia, Left Arm Weakness and Left Leg Weakness Onset: 10 AM today (approxi-1 hour prior to arrival) Worsened by: Nothing Relieved by: Nothing Associated Symptoms Associated Symptoms: Positive for Nausea; Negative for Headache, Vomiting or Chest Pain Narrative Narrative: Patient presents with left-sided weakness that began today. Patient states that she was getting blood drawn for her oncologist. Patient states that when she stood up after having her blood drawn she felt lightheaded and weak. Patient states she has had some tingling and stiffness in her left arm. Patient denies any tingling in her left leg. Patient states she had to sit back down. Patient denies any chest pain. Patient admits to some nausea but denies any vomiting. Patient states that her left arm still does not feel quite back to normal but the tingling and stiffness has resolved. Patient states she had a TIA many years ago that affected her left arm. [facility] Medical History Ambulates with cane Anemia Arthritis ASD (atrial septal defect) Asthma Back pain Back pain Cancer Cardiology follow-up encounter Carotid stenosis, bilateral Cataracts, bilateral COVID-19 Depression Diabetes Difficulty balancing Encounter for chemotherapy management Encounter for education Fibromyalgia GERD (gastroesophageal reflux disease) Heart disease Heartburn History of abdominal paracentesis History of diverticulitis History of echocardiogram Hypertension Hypokalemia Inflammatory polyarthritis Knee pain Leg cramps Limb weakness Low iron Neck pain Non-smoker Osteopenia Pancytopenia Port-A-Cath in place RAD (reactive airway disease) Restless legs Shortness of breath on exertion Stroke TIA (transient ischemic attack) TIA (transient ischemic attack) Walker as ambulation aid Wears dentures Wears glasses Home Medications albuterol sulfate 90 mcg/actuation aerosol inhaler 2 puff inhalation Q4H PRN PRN Sob &/Or Wheezing 03/30/20 [History Last Taken Unknown] ropinirole 0.5 mg tablet 0.5 mg PO DAILY #60 tabs 09/18/20 [Rx Last Taken Unknown] potassium chloride 20 mEq oral packet (Klor-Con) 20 meq PO DAILY 12/29/20 [History Last Taken Unknown] vitamins A,C,E-sngk-jgsmwo 14,320 unit-226 mg-200 unit capsule (PreserVision AREDS) 1 cap PO BID 12/29/20 [History Last Taken Unknown] gabapentin 100 mg capsule 600 mg PO BID 01/01/21 [History Last Taken Unknown] rosuvastatin 5 mg tablet 5 mg PO DAILY 01/01/21 [History Last Taken Unknown] sertraline 100 mg tablet 200 mg PO DAILY 01/01/21 [History Last Taken Unknown] lidocaine-prilocaine 2.5 %-2.5 % topical cream 1 applic topical ONCE PRN port access 30 days #30 grams 01/22/21 [Rx Last Taken Unknown] cyanocobalamin (vitamin B-12) 1,000 mcg capsule 1,000 mcg PO DAILY 05/31/21 [History Last Taken Unknown] losartan 25 mg tablet 25 mg PO DAILY 11/01/21 [History Last Taken Unknown] Zejula 100 mg PO/SL DAILY 12/06/21 [History Last Taken Unknown] Allergy/AdvReac Type Severity Reaction Status Date / Time aspirin AdvReac Mild Other Verified 12/06/21 10:42 lisinopril AdvReac Mild Other Verified 12/06/21 10:42 waldrop AdvReac Nausea/Vom/ Verified 12/06/21 10:42 Diarrhea ciprofloxacin AdvReac Vomiting Verified 12/06/21 10:42 methotrexate AdvReac Other Verified 12/06/21 10:42 rosuvastatin [From Crestor] AdvReac Other Verified 12/06/21 10:42 simvastatin AdvReac Pain in Verified 12/06/21 10:42 joints Family History Mother Asthma Heart disease Grandfather Myocardial infarction Grandmother Myocardial infarction Other CVA (cerebral vascular accident) Cancer Hypertension Psychiatric care Thyroid disorder Surgical History H/O cataract removal with insertion of prosthetic lens H/O right breast biopsy H/O tubal ligation Hx of breast biopsy Tubal ligation status Social History household members: family Smoking Status: Never smoker alcohol intake: never substance use type: does not use caffeine: Yes Type: carbonated beverages what type of physical activity do you participate in: none ROS ROS ED Constitutional Constitutional ED: Denies chills or fever(s) Eyes Eyes: Denies blurry vision or change in vision ENT ENT ED: Denies rhinorrhea or sore throat Cardiovascular Cardiovascular: Denies chest pain or palpitations Respiratory/Chest Respiratory/Chest: Denies cough or dyspnea Gastrointestinal Gastrointestinal: Reports nausea; Denies vomiting Genitourinary Genitourinary ED: Reports dysuria; Denies hematuria Musculoskeletal Musculoskeletal: Denies back pain or neck pain Integumentary Denies abscess or rash Neurologic Neurologic: Denies headache(s) or weakness Allergic/Immunologic Allergic/Immunologic ED: Denies mouth swelling or urticaria EXAM Physical Exam Const Vital Signs: 12/06/21 10:40 12/06/21 11:20 12/06/21 11:20 Temperature 97.5 F L Temperature Source Temporal Pulse Rate 73 71 Respiratory Rate 18 19 H Blood Pressure 131/91 H 167/98 H Blood Pressure Mean 104 121 Pulse Ox 99 97 96 Oxygen Delivery Method Room Air Room Air Room Air 12/06/21 11:34 12/06/21 12:03 Temperature Temperature Source Pulse Rate 78 Respiratory Rate 19 H Blood Pressure 167/98 H 145/90 H Blood Pressure Mean 121 Pulse Ox 97 Oxygen Delivery Method Room Air Positive well nourished and well developed General Appearance ED: well developed and NAD HEENT Reports moist mucous membranes Eyes PERRL and EOMs intact bilaterally Neck supple and no JVD Chest Wall inspection of chest normal and palpation of chest normal Resp normal respiratory effort and clear to auscultation bilaterally Cardio Rate: regular rate Rhythm: regular rhythm GI normal to inspection, nondistended, normoactive bowel sounds, soft to palpation and non-tender Extremity normal to inspection General Extremety ED: Negative for deformity, edema or tenderness General Extremity: Negative for deformity or edema Neuro oriented x3, CN's II-XII intact bilaterally and no sensory deficits noted Neuro Narrative: Patient was able to lift her left leg but was not able to lift it as high as her right leg. Patient was unable to hold it up for more than 2 seconds. There is some mild drifting of her left upper extremity but he did not fall to the bed before 10 seconds. Cathi Coma Scale: document GCS findings Spontaneous Obeys Commands Oriented 15 Sensorium / Orientation: alert Speech: speech normal Psych mental status grossly normal Skin no wounds NIHSS NIHSS Initial: 1a Level of Consciousness: 0 1b LOC Questions (Score 2 if aphasic/stupor): 0 1c LOC Commands (Only score 1st attempt): 0 2 Best Gaze (If aphasic, use reflexive mvmts.): 0 3 Visual: 0 4 Facial Palsy: 0 5 Motor Arm Right (UN = amputation/fusion): 0 5 Motor Arm Left: 1 6 Motor Leg Right: 0 6 Motor Leg Left: 2 8 Sensory (Aphasia/stupor=0 or 1, coma=2): 0 9 Best Language: 0 10 Dysarthria (mute, coma=2, intubated=UN): 0 11 Extinction and Inattention (only scored if +): 0 Total Score: 3 MDM MDM MDM Narrative Medical decision making narrative: CT scan of the brain was obtained. There is a focal area of decreased attenuation of the superior aspect of the right posterior parietal lobe. This was interpreted by the radiologist and reviewed by myself. CTA of the head neck was obtained. There is calcified plaque at the origins of the right and left internal carotid arteries causing approximately 50 to 60% stenosis. There is no area of large vessel occlusion noted. This was interpreted by the radiologist and reviewed by myself. EKG was obtained. On my interpretation, it shows a sinus rhythm with first-degree AV block with a rate of 74. IL interval was slightly prolonged at 216. QRS and QTc intervals were within normal limits. There is borderline left axis deviation at -21. There are no acute ST or T wave changes. CBC shows platelet count of 124. Hemoglobin was 10.1 and hematocrit was 30.4. PT with INR and PTT were within normal limits. BGT was normal at 103. Patient was evaluated by stroke neurologist, Dr. Pimentel at [facility]. She recommended tPA as long as the patient's platelets were above 100. Patient was advised of the risks and benefits of tPA. Patient is agreeable to receive the tPA. This was ordered. Case was discussed with the hospitalist here. Patient will be admitted to ICU. Patient understands and is agreeable with the plan. All questions were answered. Lab Data Attestation: I reviewed the patient's lab results. Labs: Laboratory Results - last 24 hr 12/06/21 12/06/21 12/06/21 11:01 11:20 11:20 WBC 4.8 RBC 2.99 L Hgb 10.1 L Hct 30.4 L MCV 101.7 H MCH 33.8 H MCHC 33.2 RDW Std Deviation 48.8 H RDW Coeff of Glenn 13.1 Plt Count 124 L MPV 9.2 Immature Gran % (Auto) 0.400 Neut % (Auto) 66.8 Lymph % (Auto) 22.1 Doddridge % (Auto) 6.3 Eos % (Auto) 4.0 Baso % (Auto) 0.4 Absolute Neuts (auto) 3.2 Absolute Lymphs (auto) 1.05 Nucleated RBC % 0 PT 13.5 INR 1.1 APTT 30.4 Sodium Potassium Chloride Carbon Dioxide Anion Gap BUN Creatinine Estim Creat Clear Calc Est GFR (MDRD) Af Amer Est GFR (MDRD) Non-Af BUN/Creatinine Ratio Glucose Calcium Troponin I High Sens POC Glucose 103 12/06/21 11:20 WBC RBC Hgb Hct MCV MCH MCHC RDW Std Deviation RDW Coeff of Glenn Plt Count MPV Immature Gran % (Auto) Neut % (Auto) Lymph % (Auto) Doddridge % (Auto) Eos % (Auto) Baso % (Auto) Absolute Neuts (auto) Absolute Lymphs (auto) Nucleated RBC % PT INR APTT Sodium 139 Potassium 4.2 Chloride 104 Carbon Dioxide 29.0 Anion Gap 6 BUN 17 Creatinine 0.69 Estim Creat Clear Calc 33.84 Est GFR (MDRD) Af Amer 106 Est GFR (MDRD) Non-Af 88 BUN/Creatinine Ratio 24.7 H Glucose 94 Calcium 8.5 Troponin I High Sens 5 POC Glucose Radiography Diagnostic Testing: Clinical Impression(s) from Imaging Studies Brain CT 12/06/21 11:01 IMPRESSION: Chronic involutional changes of the brain. Focal area of decreased attenuation is seen in the superior aspect of the right posterior parietal lobe. Early ischemic changes should be ruled out. N.B. : The above Results were Read Back by Herve Alejandra MD to Pablo Gavin and understanding confirmed on 12/06/2021 11:21:50 (ET). Electronically Signed: Herve Alejandra MD at 11:23 EDT , ADDENDUM: 12/06/21 1130 IMPRESSION: Chronic involutional changes of the brain. Focal area of decreased attenuation is seen in the superior aspect of the right posterior parietal lobe. Early ischemic changes should be ruled out. N.B. : The above Results were Read Back by Herve Alejandra MD to Pablo Gavin and understanding confirmed on 12/06/2021 11:21:50 (ET). Electronically Signed: Herve Alejandra MD at 11:23 EDT , Head/Neck CTA 12/06/21 11:11 IMPRESSION: Calcific plaque at the origins of the right and left internal carotid artery causing between 50 and 60% narrowing. N.B. : The above Results were Read Back by Herve Alejandra MD to Pablo Gavin and understanding confirmed on 12/06/2021 11:38:01 (ET). Electronically Signed: Herve Alejandra MD at 11:39 EDT , ADDENDUM: 12/06/21 1146 IMPRESSION: Calcific plaque at the origins of the right and left internal carotid artery causing between 50 and 60% narrowing. N.B. : The above Results were Read Back by Herve Alejandra MD to Pablo Gavin and understanding confirmed on 12/06/2021 11:38:01 (ET). Electronically Signed: Herve Alejandra MD at 11:39 EDT , EKG Initial EKG: Attestation: I personally reviewed and interpreted this EKG as follows: Interpretation: Sinus Rhythm (With first-degree AV block with rate of 74) and Non-Specific ST Changes Prior EKG tracings: not available for review Prior: No Prior Stroke Documentation Questions Stroke Team Activated: Yes Reviewed Inclusion/Exclusion criteria: Yes Was Patient considered for Endovascular Intervention?: No-CTA negative, determined not to be an endovascular candidate IV Alteplase (t-PA) Administered: Yes No contraindications for IV Alteplase (t-PA) administration.: Yes Alteplase (t-PA) risks, benefits, alternative discussed: Yes Critical Care Time Critical Care Time: Yes Critical care time (excluding procedures): 30-74 minutes (37), Including time spent:, Discussing w/Patient &/or Family/Crisis Manager, Discussing w/Consultants, Arranging Admission or Transfer and Performing Direct Patient Care at Bedside Discharge Plan Dx/Rx/DC Orders Clinical Impression: Stroke, Ovarian cancer, Anemia Disposition Disposition: [facility] Care [facility]
--- NOTE | 2021-12-06 11:11 | CT_ITS ---
STUDY: CTA HEAD AND NECK WITH CONTRAST REASON FOR EXAM: Female, 76 years old. Neuro deficit, acute, stroke suspected RADIATION DOSAGE (If Supplied By Facility): CTDIvol = ( 15.23 ) mGy, DLP = ( 675.12 ) mGycm TECHNIQUE: CT angiography was performed with a multi-detector CT scanner. Data acquisition was obtained from the skull base through the vertex following intravenous administration of IV 100mL Isovue-370. MIP images were reconstructed from the axial data set. Post-processing of the angiographic images was performed, with multiplanar reformation and 3D reconstruction. Individualized dose optimization techniques were used for this CT. COMPARISON: No relevant priors. FINDINGS: Normal bilateral petrous carotid arteries. There is calcified plaque formation of the right cavernous carotid artery, without a cross-sectional luminal stenosis. There is calcified plaque formation of the left cavernous carotid artery, without a cross-sectional luminal stenosis. Normal right A1 segments of the anterior cerebral artery. Normal left A1 segments of the anterior cerebral artery. Normal intact anterior communicating artery (ACOM). Normal bilateral A2 segments of the anterior cerebral arteries. Normal right M1 and M2 segments of the middle cerebral arteries, with a normal M1 bifurcation. Normal left M1 and M2 segments of the middle cerebral arteries, with a normal M1 bifurcation. Normal right posterior communicating artery (PCOM). Normal left posterior communicating artery (PCOM). Normal bilateral vertebral arteries. Normal basilar artery with a normal basilar bifurcation. The visualized bilateral superior cerebellar (SCA) arteries are normal. Normal bilateral P1, P2 and visualized P3 segments of the posterior cerebral arteries. There is no demonstrated aneurysm of the [place]. AORTIC ARCH: Normal visualized aortic arch. Normal origins of the brachiocephalic, left common carotid, and left subclavian arteries. RIGHT CAROTID ARTERIES: Normal right common carotid artery (CCA). Normal right common carotid bulb. There is moderate atherosclerotic plaque formation of the origin of the right internal carotid artery with an estimated stenosis of 50-69% stenosis. Normal visualized cervical portion of the right internal carotid artery. Normal origin of the right external carotid artery (ECA). LEFT CAROTID ARTERIES: Normal left common carotid artery (CCA). Normal left common carotid bulb. There is moderate atherosclerotic plaque formation of the origin of the left internal carotid artery with an estimated stenosis of 50-69% stenosis. Normal visualized cervical portion of the left internal carotid artery. Normal origin of the left external carotid artery (ECA). VERTEBRAL ARTERIES: There is enhancement within the bilateral vertebral arteries with a small right vertebral artery, and a dominant left vertebral artery. CT/STROKE CTA Head AND Neck W/Con IMPRESSION: Calcific plaque at the origins of the right and left internal carotid artery causing between 50 and 60% narrowing. N.B. : The above Results were Read Back by Herve Alejandra MD to Pablo Gavin and understanding confirmed on 12/06/2021 11:38:01 (ET). Electronically Signed: Herve Alejandra MD at 11:39 EDT ,
[2021-12-06 11:21] LABS: Bedside Glucose 103 mg/dL (74-106)
[2021-12-06 11:46] LABS: Absolute Lymphocyte Count 1.05 X10^3/uL (0.83-4.51); Absolute Neutrophil Count 3.2 X10^3/uL (2.0-7.7); Basophil# 0.02 X10^3/uL; Basophil% 0.4 % (0-1); Eosinophil# 0.19 X10^3/uL; Hematocrit 30.4 % (37-47); Hemoglobin 10.1 g/dL (12.0-15.0); Lymphocyte # 1.05 X10^3/ul (0.83-4.51); Lymphocyte % 22.1 % (19-41); Mean Corp Hgb Conc 33.2 g/dL (32-36); Mean Corpuscular Hgb 33.8 pg (27.0-32.0); Mean Corpuscular Volume 101.7 fL (81-99); Mean Platelet Vol. 9.2 fl (6.2-12.0); Monocyte% 6.3 % (0-10); NRBC Flagged by Analyzer 0 % (0-5); Neutrophil # 3.17 X10^3/uL (2.7-7.7); Neutrophil % 66.8 % (47-70); Platelet Count 124 K/mm3 (150-450); RBC Distribution Width CV 13.1 % (11.6-14.6); RBC Distribution Width SD 48.8 fl (35.1-43.9); Red Blood Count 2.99 M/mm3 (4.2-5.4); White Blood Count 4.8 K/mm3 (4.4-11.0)
[2021-12-06 11:53] LABS: International Normalized Ratio 1.1; Partial Thromboplast Time 30.4 Seconds (24.1-36.2); Prothrombin Time (Protime)PT. 13.5 SECONDS (11.7-14.9)
[2021-12-06 11:56] LABS: Anion Gap 6 (5-15); BUN 17 mg/dL (7-18); BUN/Creat Ratio 24.7 RATIO (10-20); Calcium,Total 8.5 mg/dL (8.5-10.1); Chloride 104 mmol/L (98-107); Creatinine, Serum 0.69 mg/dL (0.55-1.02); EST Glomerular Filtration Rate 88 mL/min (>60); Est Glom Filt Rate - Afr Amer 106 mL/min (>60); Estimated Creatinine Clearance 33.84 ml/min; Glucose 94 mg/dL (74-106); Potassium 4.2 mmol/L (3.5-5.1); Sodium Level 139 mmol/L (136-145); Troponin-I HS 5 pg/mL (3.0-54.0)
--- NOTE | 2021-12-06 12:07 | CHAPLAIN ---
Type of Pastoral Visit ___ Initial Visit ___ Follow-up Visit ___ On-call Visit ___ General Patient Visit ___ Spiritual Assessment ___ Family Conference ___ Bereavement ___ Rapid Response ___ Code Blue ___ Other (describe below) Pastoral Care Referral From ___ Patient ___ Family ___ Nurse ___ Physician ___ [employer]os Lead ___ Retail Associate ___ Other (describe below) Sacrament/Intervention ___ Active listening ___ Anointing ___ Christianity ___ Bereavement ___ Communion ___ Nhi exploration ___ ___ Life review ___ Prayer ___ Reconciliation ___ Sacrament of Sick ___ Supportive presence ___ Wedding ___ Other (describe below) Pastoral Comments stroke alert called and this director decision support responded; pt went to CT; sister arrived shortly and she was offered presence and support; pt returned to room and was alert and talking; no other needs present at this time
--- NOTE | 2021-12-06 12:17 | ECHOD_ITS ---
Reason For Study: TIA Procedure This was a 2D Doppler, Color Flow transthoracic echocardiogram. Exam performed portable in ED. Left Ventricle Mild concentric left ventricular hypertrophy. The left ventricular ejection fraction is 65 %. Normal diastololic function. Right Ventricle Normal right ventricle. Atria The left and right atria are normal. No PFO by color Doppler, bubble study not performed. Mitral Valve The mitral valve is structurally normal. No prolapse or stenosis seen. Trivial mitral valve insufficiency. Tricuspid Valve Mild tricuspid valve insufficiency. Pulmonary artery systolic pressure is 31 mmHg. Aortic Valve Normal aortic valve. Pulmonic Valve The pulmonic valve is not well visualized. Great Vessels Normal sized aortic root. Pericardium/Pleural No pericardial effusion. MMode/2D Measurements & Calculations LVIDd: 4.6 cm IVSd: 1.3 cm Ao root diam: 3.3 cm LVIDs: 2.5 cm LVPWd: 1.2 cm FS: 46.8 % LAV(MOD-sp4): 23.9 ml LVAd ap4: 23.1 cm2 SV(MOD-sp4): 44.8 ml LVLd ap4: 7.2 cm EDV(MOD-sp4): 59.3 ml EDV(sp4-el): 62.8 ml LVAs ap4: 9.6 cm2 LVLs ap4: 6.1 cm ESV(MOD-sp4): 14.5 ml ESV(sp4-el): 12.7 ml EF(MOD-sp4): 75.5 % EF(sp4-el): 79.7 % SV(sp4-el): 50.0 ml LA A4 area: 11.7 cm2 LA dimension(2D): 3.1 cm Time Measurements MV dec time: 0.29 sec Doppler Measurements & Calculations MV E max brayan: 73.1 cm/sec Lat Peak E' Brayan: 9.8 cm/sec Med Peak E' Brayan: 8.9 cm/sec MV A max brayan: 104.7 cm/sec E/E' lat: 7.5 E/E' med: 8.2 MV E/A: 0.70 MV V2 max: 121.0 cm/sec Ao V2 max: 126.6 cm/sec MV max P.9 mmHg MV dec slope: 256.2 cm/sec2 Ao max P.4 mmHg MV V2 mean: 60.4 cm/sec Ao V2 mean: 90.7 cm/sec MV mean P.8 mmHg Ao mean P.7 mmHg MV V2 VTI: 34.8 cm Ao V2 VTI: 28.5 cm LV V1 max: 130.0 cm/sec PA V2 max: 95.1 cm/sec TR max brayan: 231.6 cm/sec LV V1 max P.8 mmHg PA V2 mean: 61.5 cm/sec TR max P.5 mmHg LV V1 mean P.2 mmHg LV V1 mean: 82.6 cm/sec LV V1 VTI: 24.3 cm ECHO/Echo Complete Interpretation Summary Mild concentric left ventricular hypertrophy. The left ventricular ejection fraction is 65 %. Mild tricuspid valve insufficiency. Ordering Physician: Soniya Powell Performed By: Shonda Li RCS
--- NOTE | 2021-12-06 12:30 | RAD_ITS ---
STUDY: X-RAY CHEST REASON FOR EXAM: Female, 76 years old. Neuro deficit, acute, stroke suspected TECHNIQUE: Single AP portable view of the chest. COMPARISON: Comparison is made with prior study dated 01/23/2021. FINDINGS: A right-sided portacatheter is seen with the tip in the proximal portion of the superior vena cava. EKG electrodes are seen. Stable elevation of the right hemidiaphragm. There is no demonstrated pleural abnormality. Normal size heart. Normal mediastinum and vinayak. Normal visualized pulmonary arteries. There is atherosclerotic calcification of the aortic arch with tortuosity. There are diffuse degenerative changes of the visualized thoracic spine. Normal visualized ribs, clavicles, and shoulders. There is no demonstrated abnormality of the visualized soft tissue structures of the upper abdomen. RAD/Chest 1 View IMPRESSION: The lungs are clear. Electronically Signed: Herve Alejandra MD at 12:59 EDT ,
--- NOTE | 2021-12-06 12:33 | PCM.HP.STD ---
HPI - General General Date of Admission: 12/06/21 Date of Service: 12/06/21 Chief Complaint: Left-sided weakness/left-sided sensory changes HPI Narrative YUNG GAUTHIER, is a 76 F who presented to the emergency department [facility] on 12/06/2021 with a chief complaint of left-sided weakness in her arm and leg as well as tingling numbness in the left side of her face, left arm, and left leg. She states she had been feeling well up until about 10:10 at which time she had the symptoms above described. She had no history of stroke and no symptoms similar to this previously. She is undergoing treatment for stage IIIa ovarian cancer and takes oral chemotherapy agents at baseline. Initial NIH was 3. Vital signs on presentation showed a temp of 97.5, blood pressure 131/91, respiratory rate 18, pulse ox 99% on room air. CBC shows chronic stable anemia mild thrombocytopenia with a platelet count of 124,000-this is chronic as well. Coags are normal. BMP is unremarkable. Initial troponin was 5. EKG shows normal sinus rhythm without any ST-T wave changes consistent with acute ischemia. CT of her brain was performed and showed chronic involutional changes as well as a focal area of decreased attenuation in the superior aspect of the right posterior parietal lobe that could be consistent with early ischemia. CTA of the head and neck showed calcific plaque at the origin of the right and left internal carotid that was causing 50 to 60% narrowing. Given she presented to his acute stroke stroke team was called and ED was in contact with [facility] stroke neurology team. They recommend tPA dosing which was started at approximately noon on 12/06/2021. She will be admitted to the ICU for further care. [facility] Medical History Ambulates with cane Anemia Arthritis ASD (atrial septal defect) Asthma Back pain Back pain Cancer Cardiology follow-up encounter Carotid stenosis, bilateral Cataracts, bilateral COVID-19 Depression Diabetes Difficulty balancing Encounter for chemotherapy management Encounter for education Fibromyalgia GERD (gastroesophageal reflux disease) Heart disease Heartburn History of abdominal paracentesis History of diverticulitis History of echocardiogram Hypertension Hypokalemia Inflammatory polyarthritis Knee pain Leg cramps Limb weakness Low iron Neck pain Non-smoker Osteopenia Pancytopenia Port-A-Cath in place RAD (reactive airway disease) Restless legs Shortness of breath on exertion Stroke TIA (transient ischemic attack) TIA (transient ischemic attack) Walker as ambulation aid Wears dentures Wears glasses Home Medications albuterol sulfate 90 mcg/actuation aerosol inhaler 2 puff inhalation Q4H PRN PRN Sob &/Or Wheezing 03/30/20 [History Last Taken Unknown] ropinirole 0.5 mg tablet 0.5 mg PO DAILY #60 tabs 09/18/20 [Rx Last Taken Unknown] potassium chloride 20 mEq oral packet (Klor-Con) 20 meq PO DAILY 12/29/20 [History Last Taken Unknown] vitamins A,C,M-jgls-mhnoih 14,320 unit-226 mg-200 unit capsule (PreserVision AREDS) 1 cap PO BID 12/29/20 [History Last Taken Unknown] gabapentin 100 mg capsule 600 mg PO BID 01/01/21 [History Last Taken Unknown] rosuvastatin 5 mg tablet 5 mg PO DAILY 01/01/21 [History Last Taken Unknown] sertraline 100 mg tablet 200 mg PO DAILY 01/01/21 [History Last Taken Unknown] lidocaine-prilocaine 2.5 %-2.5 % topical cream 1 applic topical ONCE PRN port access 30 days #30 grams 01/22/21 [Rx Last Taken Unknown] cyanocobalamin (vitamin B-12) 1,000 mcg capsule 1,000 mcg PO DAILY 05/31/21 [History Last Taken Unknown] losartan 25 mg tablet 25 mg PO DAILY 11/01/21 [History Last Taken Unknown] Zejula 100 mg PO/SL DAILY 12/06/21 [History Last Taken Unknown] Allergy/AdvReac Type Severity Reaction Status Date / Time aspirin AdvReac Mild Other Verified 12/06/21 10:42 lisinopril AdvReac Mild Other Verified 12/06/21 10:42 waldrop AdvReac Nausea/Vom/ Verified 12/06/21 10:42 Diarrhea ciprofloxacin AdvReac Vomiting Verified 12/06/21 10:42 methotrexate AdvReac Other Verified 12/06/21 10:42 rosuvastatin [From Crestor] AdvReac Other Verified 12/06/21 10:42 simvastatin AdvReac Pain in Verified 12/06/21 10:42 joints Family History Mother Asthma Heart disease Grandfather Myocardial infarction Grandmother Myocardial infarction Other CVA (cerebral vascular accident) Cancer Hypertension Psychiatric care Thyroid disorder Surgical History H/O cataract removal with insertion of prosthetic lens H/O right breast biopsy H/O tubal ligation Hx of breast biopsy Tubal ligation status Social History household members: family Smoking Status: Never smoker alcohol intake: never substance use type: does not use caffeine: Yes Type: carbonated beverages what type of physical activity do you participate in: none ROS Constitutional Constitutional: Reports weakness; Denies anorexia, change in weight, chills, fatigue, fever(s), malaise, night sweats or other Eyes Eyes: Denies blurry vision, change in eye color, change in vision, discharge from eye(s), double vision, erythema, eye pain, loss of vision or other ENT HEENT: Denies abnormal hearing, dysphagia, ear pain, epistaxis, headache(s), hearing loss, nasal congestion, nasal discharge, post nasal drip, sinus pressure, sore throat or other Cardiovascular Cardiovascular: Denies chest pain, claudication, dyspnea on exertion, edema, lightheadedness, orthopnea, palpitations, paroxysmal nocturnal dyspnea, rapid heart rate, syncope or other Respiratory/Chest Respiratory/Chest: Denies cough, dyspnea, excessive phlegm production, hemoptysis, productive cough, shortness of breath at rest, shortness of breath with exertion, wheezing or other Gastrointestinal Gastrointestinal: Denies abdominal pain, coffee ground emesis, constipation, diarrhea, dyspepsia, hematemesis, hematochezia, loose stools, melena, nausea, vomiting or other Genitourinary Genitourinary: Denies burning urination, difficulty urinating, dysuria, hematuria, nocturia, urinary frequency, urinary hesitancy, urinary incontinence, urinary urgency or other Musculoskeletal Musculoskeletal: Denies arthralgias, back pain, joint pain, joint stiffness, joint swelling, myalgias, neck pain or other Neurologic Neurologic: Reports abnormal gait, dizziness, focal weakness and paresthesias; Denies abnormal speech, confusion, disequilibrium, headache(s), numbness, seizure-like activity, seizures, syncope, tingling, tremor(s) or other Psychiatric Psychiatric: Reports depression; Denies anxiety, homicidal ideation, suicidal ideation or other Endocrine Endocrinology: Denies change in body appearance, cold intolerance, excessive sweating, heat intolerance, polydipsia, polyuria or other Hematologic/Lymphatic Hematologic/Lymphatic: Denies anemia, easy bleeding, easy bruising, lymphadenopathy or other Allergic/Immunologic Allergic/Immunologic: Denies rhinitis, hives, eczemia, asthma or other Vital Signs Vital Signs Vital Signs: 12/06/21 10:40 12/06/21 11:20 12/06/21 11:20 Temperature 97.5 F L Temperature Source Temporal Pulse Rate 73 71 Respiratory Rate 18 19 H Blood Pressure 131/91 H 167/98 H Blood Pressure Mean 104 121 Blood Pressure Source Blood Pressure Position Blood Pressure Location Pulse Ox 99 97 96 Oxygen Delivery Method Room Air Room Air Room Air 12/06/21 11:34 12/06/21 12:03 12/06/21 12:13 Temperature 97.3 F L Temperature Source Temporal Pulse Rate 78 70 Respiratory Rate 19 H 16 Blood Pressure 167/98 H 145/90 H 145/90 H Blood Pressure Mean 121 108 Blood Pressure Source Blood Pressure Position Blood Pressure Location Pulse Ox 97 95 Oxygen Delivery Method Room Air Room Air 12/06/21 12:15 12/06/21 12:05 12/06/21 12:25 Temperature 97.3 F L Temperature Source Temporal Pulse Rate 69 71 74 Respiratory Rate 10 L 19 H 20 H Blood Pressure 165/82 H 145/90 H 165/82 H Blood Pressure Mean 109 108 109 Blood Pressure Source Monitor Monitor Blood Pressure Position Semi-Fowlers Semi-Fowlers Blood Pressure Location Left Arm Left Arm Pulse Ox 95 97 97 Oxygen Delivery Method Room Air Room Air Room Air Weight Weight: 78.9 kg Body Mass Index (BMI) 34.0 Physical Exam Const alert, oriented x3, no apparent distress and well nourished Constitutional Narrative: Obese, elderly white female sitting up in bed, family/friends at bedside, patient appears comfortable and nontoxic, nursing at bedside doing intake General Appearance: cooperative HEENT normocephalic, head/scalp atraumatic and moist oral mucous membranes; Negative for dentition normal HEENT Narrative: Mild hearing loss, dentures in place, Mallampati 2, no thrush Eyes PERRL, EOMs intact bilaterally and conjunctivae normal Eyes Narrative: No scleral icterus Neck no lymphadenopathy, supple, no JVD and no carotid bruits Neck Narrative: Trachea midline, no thyroid enlargement Resp normal respiratory effort, no retractions, no use of accessory muscles and clear to auscultation bilaterally Auscultation: Negative for crackles, rales, rhonchi or wheezes Cardio regular rate, regular rhythm, S1 normal heart sound, S2 normal heart sound, no murmurs, no rub, no gallops, no clicks and no JVD GI normal to inspection, nondistended, normoactive bowel sounds, soft to palpation and non-tender; Negative for non-distended Extremity no clubbing, cyanosis or edema Extremity Narrative: 2+ pedal pulses Skin no rashes or lesions noted, no wounds, skin turgor normal, no jaundice, no petechiae and no mottling Skin Narrative: Med port in place without any signs of drainage or infection Neuro oriented x3, No CN's II-XII intact bilaterally, No moves all extremities and No no focal motor deficits Neuro Narrative: Left-sided facial sensory abnormalities-cranial nerve IV, no motor deficits and cranial nerves are otherwise intact, left-sided upper and lower extremity paresthesias, pronator drift left upper extremity, leg drift left lower extremity Speech: speech normal Psych affect normal Psych Narrative: Very pleasant and appropriately interactive Results Lab / Micro Data Result Diagrams: 12/06/21 11:20 12/06/21 11:20 Labs: Laboratory Results - last 24 hr 12/06/21 11:01: POC Glucose 103 12/06/21 11:20: WBC 4.8, RBC 2.99 L, Hgb 10.1 L, Hct 30.4 L, MCV 101.7 H, MCH 33.8 H, MCHC 33.2, RDW Std Deviation 48.8 H, RDW Coeff of Glenn 13.1, Plt Count 124 L, MPV 9.2, Immature Gran % (Auto) 0.400, Neut % (Auto) 66.8, Lymph % (Auto) 22.1, [place] % (Auto) 6.3, Eos % (Auto) 4.0, Baso % (Auto) 0.4, Absolute Neuts (auto) 3.2, Absolute Lymphs (auto) 1.05, Nucleated RBC % 0 12/06/21 11:20: PT 13.5, INR 1.1, APTT 30.4 12/06/21 11:20: Sodium 139, Potassium 4.2, Chloride 104, Carbon Dioxide 29.0, Anion Gap 6, BUN 17, Creatinine 0.69, Estim Creat Clear Calc 33.84, Est GFR (MDRD) Af Amer 106, Est GFR (MDRD) Non-Af 88, BUN/Creatinine Ratio 24.7 H, Glucose 94, Calcium 8.5, Troponin I High Sens [address] 12/06/21 11:01 IMPRESSION: Chronic involutional changes of the brain. Focal area of decreased attenuation is seen in the superior aspect of the right posterior parietal lobe. Early ischemic changes should be ruled out. N.B. : The above Results were Read Back by Herve Alejandra MD to Pablo Gavin and understanding confirmed on 12/06/2021 11:21:50 (ET). Electronically Signed: Herve Alejandra MD at 11:23 EDT , ADDENDUM: 12/06/21 1130 IMPRESSION: Chronic involutional changes of the brain. Focal area of decreased attenuation is seen in the superior aspect of the right posterior parietal lobe. Early ischemic changes should be ruled out. N.B. : The above Results were Read Back by Herve Alejandra MD to Pablo Gavin and understanding confirmed on 12/06/2021 11:21:50 (ET). Electronically Signed: Herve Alejandra MD at 11:23 EDT , Head/Neck CTA 12/06/21 11:11 IMPRESSION: Calcific plaque at the origins of the right and left internal carotid artery causing between 50 and 60% narrowing. N.B. : The above Results were Read Back by Herve Alejandra MD to Pablo Gavin and understanding confirmed on 12/06/2021 11:38:01 (ET). Electronically Signed: Herve Alejandra MD at 11:39 EDT , ADDENDUM: 12/06/21 1146 IMPRESSION: Calcific plaque at the origins of the right and left internal carotid artery causing between 50 and 60% narrowing. N.B. : The above Results were Read Back by Herve Alejandra MD to Pablo Gavin and understanding confirmed on 12/06/2021 11:38:01 (ET). Electronically Signed: Herve Alejandra MD at 11:39 EDT , Assessment & Plan Assessment/Plan (1) Stroke: PLAN: Plan Acute right-sided stroke -Suspect MCA territory -tPA given in the emergency department at approximately noon -Start aspirin at 24 hours if MRI negative for hemorrhagic transformation -Allergy noted and it is reported nosebleeds -Given stroke will need to try and see how she tolerates -MRI tomorrow at 12:30 PM -Echo echocardiogram -Continue home statin -Check lipids -PT/OT/speech therapy -Neuro evaluation likely after imaging completed Anemia/thrombocytopenia -Chronic -Likely related to chemotherapy Bilateral carotid stenosis -50 to 60% -No intervention required -Would recommend outpatient follow-up and monitoring Hyperlipidemia -Continue home statin -Check lipids Neuropathy -Continue home gabapentin Hypertension -We will hold home losartan 25 mg daily -Allow for permissive hypertension with above stroke -As needed medications available Restless leg syndrome -Continue home ropinirole Stage IIIa ovarian cancer -Follows with Dr. Smyth -On Zejula -Continue home medication History of asthma -Continue home as needed albuterol HFA -Incentive spirometry DVT prophylaxis -SCDs only for the first 24 hours -Start enoxaparin tomorrow evening if MRI negative for hemorrhagic transformation CODE STATUS -Full code as verified on admission Charges/Coding Visit Charges Inpatient E&M: 53966 Init Hosp L3
--- NOTE | 2021-12-06 12:53 | ED.RN ---
Family to bring patient Zejula medication from home, needs to be taken at 2200 daily.
--- NOTE | 2021-12-06 13:29 | ED.RN ---
Attempted report to ICU at 1325, no answer
--- NOTE | 2021-12-06 13:44 | ED.RN ---
Report called to [place] in ICU at 1345, bed dirty, will call when clean.
[2021-12-06] MEDS: 0.9% Normal Saline 1,000 ML 100 ML IV (14:51)
--- NOTE | 2021-12-06 14:53 | ED.RN ---
Echo being performed in ED room at time, no [facility] performed
--- NOTE | 2021-12-06 19:11 | EX.PCM.CONCC ---
Assessment & Plan Assessment/Plan (1) Stroke: (2) Pancytopenia: (3) RLS (restless legs syndrome): (4) Ovarian cancer: QUALIFIERS: Laterality: bilateral Qualified Code(s): C56.3 - Malignant neoplasm of bilateral ovaries PLAN: Plan 1. Acute mild stroke with left hemiparesis, tingling, unsteadiness with ambulation, now completely resolved after tPA. -Continue with usual medications -Observe in ICU for approximately 24 hours post tPA, avoid phlebotomy and and invasive procedures -Continue rosuvastatin -Add aspirin in the morning 81 mg daily -Maintain good control of blood pressure, avoid hypotension and hypotension. Patient has hydralazine and labetalol and nicardipine ordered, to be used only as needed -Consider the possibility that flushing her port today may have caused dislodgment of a small clot or bubble at the end of her line which may have traveled through her ASD and caused a stroke. Extra care is therefore recommended in the future. Thank you for consulting critical care on your pleasant patient. Management of other medical problems as per primary team, please do not hesitate to call with any questions. Critical care time spent with patient at bedside, review of documentation, lab results, radiology and other test results, discussion with colleagues and ancillary staff, clinical management of patient, and updating family if applicable, was 35 minutes. This time does not include any procedures, if performed. Critical care codes for today: 86219. HPI Consult Data Date of Consult: 12/06/21 HPI Narrative Reason for Consultation: Acute CVA, status post tPA infusion with NIH SS decreasing from 3 to 0. HPI Narrative: YUNG GAUTHIER, is a 76 F with ovarian cancer on active chemotherapy via a right chest port, with last known well at 10 AM, who presents after developing acute stroke symptoms after blood was drawn from her port for routine labs today. She stated that she was getting up to leave the lab, she suddenly noticed numbness and tingling on the left side of her head and body, became unsteady and had to sit down. She was brought to the ER with an NIH stroke score of 3, where she was thought to be having an acute stroke. CT showed no evidence of bleeding, she had no contraindications, and underwent tPA infusion, with complete resolution of her symptoms and NIH stroke score of 0. There were no precipitating factors, including no fevers chills sweats myalgias headache sick contacts palpitations chest pain, unusual activities or injuries. She stated she had a previous episode like this years ago, did not come to the hospital, noted it got better on its own but was left with some residual chronic weakness on the left side. She noted that she has had difficulty with low platelets during her cancer treatment, and that she has been told in the past that she has a hole in the heart but was not sure where it was or how large it was. She has never been told to take antibiotics after dental work or colonoscopies because of it. Risk factors for stroke include carotid stenosis, prior stroke/TIA, cancer (hypercoagulability), hypertension. The patient had a negative polysomnogram for sleep apnea on 07/10/2020. The minimum oxygen saturation was 88%, with a mean value of 93% on room air. She had a periodic limb movement index of 85/h, and a PLMS arousal index of 7.2/h. Her total arousal index was 15.3/h, half of which were due to periodic limb movements. Carotid ultrasound 08/09/2021 showed proximal right ICA with 50 to 69% stenosis, less than 50% stenosis of the right external carotid artery, left internal carotid artery with less than 50% stenosis, less than 50% stenosis of the left external carotid artery. Vertebral arteries were patent, there was slight advancement of the right internal carotid artery occlusive disease compared to April 2020 when there was less than 50% stenosis of right ICA. [facility] Medical History Ambulates with cane Anemia Arthritis ASD (atrial septal defect) Asthma Back pain Back pain Cancer Cardiology follow-up encounter Carotid stenosis, bilateral Cataracts, bilateral COVID-19 Depression Diabetes Difficulty balancing Encounter for chemotherapy management Encounter for education Fibromyalgia GERD (gastroesophageal reflux disease) Heart disease Heartburn History of abdominal paracentesis History of diverticulitis History of echocardiogram Hypertension Hypokalemia Inflammatory polyarthritis Knee pain Leg cramps Limb weakness Low iron Neck pain Non-smoker Osteopenia Pancytopenia Port-A-Cath in place RAD (reactive airway disease) Restless legs Shortness of breath on exertion Stroke TIA (transient ischemic attack) TIA (transient ischemic attack) Walker as ambulation aid Wears dentures Wears glasses Home Medications potassium chloride 20 mEq oral packet (Klor-Con) 20 meq PO DAILY SUPPLEMENT 12/29/20 [History Last Taken 12/06/21] vitamins A,C,D-kbnd-vtzryh 14,320 unit-226 mg-200 unit capsule (PreserVision AREDS) 1 cap PO BID EYE HEALTH 12/29/20 [History Last Taken 12/06/21] rosuvastatin 5 mg tablet 5 mg PO SUMOWEFR CHOLESTEROL 01/01/21 [History Last Taken 12/05/21] sertraline 100 mg tablet 200 mg PO DAILY DEPRESSION 01/01/21 [History Last Taken 12/06/21] lidocaine-prilocaine 2.5 %-2.5 % topical cream 1 applic topical ONCE PRN port access 30 days #30 grams 01/22/21 [Rx Last Taken 12/06/21] cyanocobalamin (vitamin B-12) 1,000 mcg capsule 1,000 mcg PO DAILY SUPPLEMENT 05/31/21 [History Last Taken 12/06/21] losartan 25 mg tablet 12.5 mg PO DAILY BLOOD PRESSURE 11/01/21 [History Last Taken 12/05/21] gabapentin 300 mg capsule 300 mg PO 4X/DAY NERVE PAIN 12/06/21 [History Last Taken 12/06/21] niraparib 100 mg PO/SL DAILY@2200 CANCER MAINTENANCE 12/06/21 [History Last Taken 12/05/21] ropinirole 0.5 mg tablet 0.5 mg PO DAILY RLS 12/06/21 [History Last Taken 12/05/21] Allergy/AdvReac Type Severity Reaction Status Date / Time aspirin AdvReac Mild Other Verified 12/06/21 10:42 lisinopril AdvReac Mild Other Verified 12/06/21 10:42 waldrop AdvReac Nausea/Vom/ Verified 12/06/21 10:42 Diarrhea ciprofloxacin AdvReac Vomiting Verified 12/06/21 10:42 methotrexate AdvReac Other Verified 12/06/21 10:42 rosuvastatin [From Crestor] AdvReac Other Verified 12/06/21 10:42 simvastatin AdvReac Pain in Verified 12/06/21 10:42 joints Family History Mother Asthma Heart disease Grandfather Myocardial infarction Grandmother Myocardial infarction Other CVA (cerebral vascular accident) Cancer Hypertension Psychiatric care Thyroid disorder Surgical History H/O cataract removal with insertion of prosthetic lens H/O right breast biopsy H/O tubal ligation Hx of breast biopsy Tubal ligation status Social History household members: family Smoking Status: Never smoker alcohol intake: never substance use type: does not use caffeine: Yes Type: carbonated beverages what type of physical activity do you participate in: none Prior Cardiac Testing/Procedures Prior Cardiac Testing/Procedures: Echocardiogram ROS ROS Narrative 12 system review was negative except as above. She denies any bleeding related to her pancytopenia. Physical Exam Narrative Well-developed pleasant woman in no acute distress. HEENT: Extraoculars are intact, no nystagmus, oculocephalics intact, pupils are equal and reactive, no scleral icterus or conjunctival injection, normal focus, I did not check visual meek, but patient had no complaints of change in vision taste smell or hearing. Neck is supple Chest is clear bilaterally with no wheezes rales or rhonchi. Breathing is unlabored. A port is present in the right upper chest, dressing clean and dry. Heart normal S1-S2 with a 1/6 systolic murmur heard to the left of the sternal notch Abdomen is nondistended Extremities have no clubbing cyanosis or edema Neuro: Alert and oriented x3, normal speech, conversational content, insight, and memory. Patient also stated no deficits in those regards either during or after her TIA episode. Cranial nerves are intact, full range of motion, I did not test gait. Good strength. I did not do finger-nose test. Nursing assessment of NIH stroke scale was 0 on arrival to ICU. Patient also stated her symptoms had completely resolved. Medical Records Data Attestation: I reviewed the patient's medical records Lab / Micro Data Attestation: I reviewed the patient's lab results. Result Diagrams: 12/06/21 11:20 12/06/21 11:20 Labs: Laboratory Results - last 24 hr 12/06/21 11:01: POC Glucose 103 12/06/21 11:20: WBC 4.8, RBC 2.99 L, Hgb 10.1 L, Hct 30.4 L, MCV 101.7 H, MCH 33.8 H, MCHC 33.2, RDW Std Deviation 48.8 H, RDW Coeff of Glenn 13.1, Plt Count 124 L, MPV 9.2, Immature Gran % (Auto) 0.400, Neut % (Auto) 66.8, Lymph % (Auto) 22.1, [place] % (Auto) 6.3, Eos % (Auto) 4.0, Baso % (Auto) 0.4, Absolute Neuts (auto) 3.2, Absolute Lymphs (auto) 1.05, Nucleated RBC % 0 12/06/21 11:20: PT 13.5, INR 1.1, APTT 30.4 12/06/21 11:20: Sodium 139, Potassium 4.2, Chloride 104, Carbon Dioxide 29.0, Anion Gap 6, BUN 17, Creatinine 0.69, Estim Creat Clear Calc 33.84, Est GFR (MDRD) Af Amer 106, Est GFR (MDRD) Non-Af 88, BUN/Creatinine Ratio 24.7 H, Glucose 94, Calcium 8.5, Troponin I High Sens [address] 12/06/21 11:01 IMPRESSION: Chronic involutional changes of the brain. Focal area of decreased attenuation is seen in the superior aspect of the right posterior parietal lobe. Early ischemic changes should be ruled out. N.B. : The above Results were Read Back by Herve Alejandra MD to Pablo Gavin and understanding confirmed on 12/06/2021 11:21:50 (ET). Electronically Signed: Herve Alejandra MD at 11:23 EDT , ADDENDUM: 12/06/21 1130 IMPRESSION: Chronic involutional changes of the brain. Focal area of decreased attenuation is seen in the superior aspect of the right posterior parietal lobe. Early ischemic changes should be ruled out. N.B. : The above Results were Read Back by Herve Alejandra MD to Pablo Gavin and understanding confirmed on 12/06/2021 11:21:50 (ET). Electronically Signed: Herve Alejandra MD at 11:23 EDT , Head/Neck CTA 12/06/21 11:11 IMPRESSION: Calcific plaque at the origins of the right and left internal carotid artery causing between 50 and 60% narrowing. N.B. : The above Results were Read Back by Herve Alejandra MD to Pablo Gavin and understanding confirmed on 12/06/2021 11:38:01 (ET). Electronically Signed: Herve Alejandra MD at 11:39 EDT , ADDENDUM: 12/06/21 1146 IMPRESSION: Calcific plaque at the origins of the right and left internal carotid artery causing between 50 and 60% narrowing. N.B. : The above Results were Read Back by Herve Alejandra MD to Pablo Gavin and understanding confirmed on 12/06/2021 11:38:01 (ET). Electronically Signed: Herve Alejandra MD at 11:39 EDT , Chest X-Ray 12/06/21 12:30 IMPRESSION: The lungs are clear. Electronically Signed: Herve Alejandra MD at 12:59 EDT , Charges/Coding Procedures Hospitalists Procedures: [id number] Critial Care 1st Hr
[2021-12-06] MEDS: Rosuvastatin Calcium 5 MG Tablet PO (23:00)
[2021-12-06] MEDS: 0.9% Saline Lock 10 ML Syringe IV (23:00)
[2021-12-06] MEDS: Pramipexole Di-HCl 0.25 MG Tablet PO (23:00)
[2021-12-06] MEDS: Gabapentin 600 MG Tablet PO (23:00)
[2021-12-07] VITALS (29 sets, daily range): BP systolic 107–152; BP diastolic 66–103; PULSE 65–87; RESP 12–20; TEMP 35.8–37.3; O2SAT 92–99; BMI 34.9
--- NOTE | 2021-12-07 00:15 | NURSING ---
12/06/21@ 2200- Patient called out to nurse that her bed felt wet. This RN went to trouble shoot catheter and found catheter with balloon intact and filled with saline laying between the labia of the patient. Due to TPA administration, a new catheter was unable to be placed at this time so a purewick catheter was placed. Garfield Davis RN
[2021-12-07 01:01] LABS: Mucous, Urine 0 SEEN /hpf (<or=2+); Squamous Epithelial Cells - UA 0 SEEN /hpf (5-10)
[2021-12-07 01:02] LABS: Color, Urine Yellow (Yellow); Glucose, Dipstick Normal (Normal); Ketone-Dipstick Negative (Negative); Leukocyte Esterase-Dipstick 100 /ul (Negative); Nitrite-Dipstick Negative (Negative); Occult Blood-Urine 50 /ul (Negative); Protein-Dipstick Negative (Negative); Specific Gravity, Urine 1.005 (1.002-1.030); Urine Bilirubin Dipstick Negative (Negative); Urine Clarity Clear (Clear); Urine Urobilinogen Normal (Normal)
[2021-12-07 01:35] LABS: Bacteria 1+ /hpf (None Seen); Red Blood Cells-Urine 0-5 SEEN /hpf (0-5); White Blood Cells 0-5 SEEN /hpf (0-5)
[2021-12-07 04:40] LABS: Absolute Lymphocyte Count 1.17 X10^3/uL (0.83-4.51); Absolute Neutrophil Count 3.1 X10^3/uL (2.0-7.7); Basophil# 0.01 X10^3/uL; Basophil% 0.2 % (0-1); Eosinophil# 0.15 X10^3/uL; Eosinophils% 3.1 % (0-5); Hematocrit 32.3 % (37-47); Hemoglobin 10.8 g/dL (12.0-15.0); Lymphocyte # 1.17 X10^3/ul (0.83-4.51); Lymphocyte % 24.4 % (19-41); Mean Corp Hgb Conc 33.4 g/dL (32-36); Mean Corpuscular Volume 101.6 fL (81-99); Mean Platelet Vol. 9.2 fl (6.2-12.0); Monocyte# 0.33 X10^3/uL; Monocyte% 6.9 % (0-10); NRBC Flagged by Analyzer 0 % (0-5); Neutrophil # 3.12 X10^3/uL (2.7-7.7); Platelet Count 127 K/mm3 (150-450); RBC Distribution Width CV 13.2 % (11.6-14.6); RBC Distribution Width SD 49.3 fl (35.1-43.9); Red Blood Count 3.18 M/mm3 (4.2-5.4); White Blood Count 4.8 K/mm3 (4.4-11.0)
[2021-12-07 04:57] LABS: ALB/GLOB Ratio 1.1 RATIO (0.9-2.4); AST(SGOT) 22 U/L (15-37); Alanine Aminotransfer ALT/SGPT 25 U/L (13-56); Albumin, Serum 3.4 g/dL (3.2-5.0); Alkaline Phosphatase 103 U/L (45-117); Anion Gap 7 (5-15); BUN 13 mg/dL (7-18); BUN/Creat Ratio 18.2 RATIO (10-20); Calcium,Total 8.9 mg/dL (8.5-10.1); Chloride 108 mmol/L (98-107); Cholesterol 148 mg/dL (200); Creatinine, Serum 0.72 mg/dL (0.55-1.02); EST Glomerular Filtration Rate 84 mL/min (>60); Est Glom Filt Rate - Afr Amer 102 mL/min (>60); Estimated Creatinine Clearance 33.84 ml/min; Glucose 105 mg/dL (74-106); High Density Lipoprotein 48 mg/dL; Potassium 4.1 mmol/L (3.5-5.1); Protein, Total 6.4 g/dL (6.4-8.2); Sodium Level 142 mmol/L (136-145); Triglycerides 153 mg/dL; Very Low Density Lipoprotein 31 mg/dL (5-40)
--- NOTE | 2021-12-07 08:07 | PN.HOSP_ITS ---
Subjective Subjective Follow-up on acute stroke/status post tPA: Patient was seen and examined. Denied any new complaint. Denies any tingling or numbness. No acute events overnight. Blood pressures controlled. Patient is due for MRI of the brain this afternoon. Patient voiced hesistancy with aspirin. Objective Data Objective Data Vital Signs: Vital Signs Temp Pulse Resp BP Pulse Ox O2 Del Method 96.5 F L 67 15 144/68 H 95 Room Air 12/07/21 04:00 12/07/21 07:00 12/07/21 07:00 12/07/21 07:00 12/07/21 07:00 12/07/21 07:00 Oxygen Delivery Method Room Air Weight: 79.9 kg Body Mass Index (BMI) 34.9 Intake & Output: Intake and Output for Last 24 Hours 12/05/21 12/06/21 12/07/21 23:59 23:59 23:59 Intake Total 404 / 1319 1000 / 1000 Output Total 100 / 400 700 / 700 Balance 304 / 919 300 / 300 Lab / Micro Data Result Diagrams: 12/07/21 04:30 12/07/21 04:30 Labs: Laboratory Results - last 24 hr 12/06/21 11:01: POC Glucose 103 12/06/21 11:20: WBC 4.8, RBC 2.99 L, Hgb 10.1 L, Hct 30.4 L, MCV 101.7 H, MCH 33.8 H, MCHC 33.2, RDW Std Deviation 48.8 H, RDW Coeff of Glenn 13.1, Plt Count 124 L, MPV 9.2, Immature Gran % (Auto) 0.400, Neut % (Auto) 66.8, Lymph % (Auto) 22.1, [place] % (Auto) 6.3, Eos % (Auto) 4.0, Baso % (Auto) 0.4, Absolute Neuts (auto) 3.2, Absolute Lymphs (auto) 1.05, Nucleated RBC % 0 12/06/21 11:20: PT 13.5, INR 1.1, APTT 30.4 12/06/21 11:20: Sodium 139, Potassium 4.2, Chloride 104, Carbon Dioxide 29.0, Anion Gap 6, BUN 17, Creatinine 0.69, Estim Creat Clear Calc 33.84, Est GFR (MDRD) Af Amer 106, Est GFR (MDRD) Non-Af 88, BUN/Creatinine Ratio 24.7 H, Glucose 94, Calcium 8.5, Troponin I High Sens 5 12/07/21 00:55: Urine Color Yellow, Urine Clarity Clear, Urine pH 7.0, Ur Specific [place] 1.005, Urine Protein Negative, Urine Glucose (UA) Normal, Urine Ketones Negative, Urine Occult Blood 50 H, Urine Nitrite Negative, Urine Bilirubin Negative, Urine Urobilinogen Normal, Ur Leukocyte Esterase 100 H, Urine RBC 0-5 SEEN, Urine WBC 0-5 SEEN, Ur Squamous Epith Cells 0 SEEN, Urine Bacteria 1+, Urine Mucus 0 SEEN 12/07/21 04:30: WBC 4.8, RBC 3.18 L, Hgb 10.8 L, Hct 32.3 L, MCV 101.6 H, MCH 34.0 H, MCHC 33.4, RDW Std Deviation 49.3 H, RDW Coeff of Glenn 13.2, Plt Count 127 L, MPV 9.2, Immature Gran % (Auto) 0.400, Neut % (Auto) 65.0, Lymph % (Auto) 24.4, Patrick % (Auto) 6.9, Eos % (Auto) 3.1, Baso % (Auto) 0.2, Absolute Neuts (auto) 3.1, Absolute Lymphs (auto) 1.17, Nucleated RBC % 0 12/07/21 04:30: Sodium 142, Potassium 4.1, Chloride 108 H, Carbon Dioxide 27.0, Anion Gap 7, BUN 13, Creatinine 0.72, Estim Creat Clear Calc 33.84, Est GFR (MDRD) Af Amer 102, Est GFR (MDRD) Non-Af 84, BUN/Creatinine Ratio 18.2, Glucose 105, Calcium 8.9, Phosphorus 4.0, Magnesium 2.0, Total Bilirubin 0.50, AST 22, ALT 25, Alkaline Phosphatase 103, Total Protein 6.4, Albumin 3.4, Globulin 3.0, Albumin/Globulin Ratio 1.1, Triglycerides 153, Cholesterol 148, LDL Cholesterol 69, VLDL Cholesterol 31, HDL Cholesterol 48 Radiography Diagnostic Testing: Radiology Impression Brain CT 12/06/21 11:01 IMPRESSION: Chronic involutional changes of the brain. Focal area of decreased attenuation is seen in the superior aspect of the right posterior parietal lobe. Early ischemic changes should be ruled out. N.B. : The above Results were Read Back by Herve Alejandra MD to Pablo Gavin and understanding confirmed on 12/06/2021 11:21:50 (ET). Electronically Signed: Herve Alejandra MD at 11:23 EDT , ADDENDUM: 12/06/21 1130 IMPRESSION: Chronic involutional changes of the brain. Focal area of decreased attenuation is seen in the superior aspect of the right posterior parietal lobe. Early ischemic changes should be ruled out. N.B. : The above Results were Read Back by Herve Alejandra MD to Pablo Gavin and understanding confirmed on 12/06/2021 11:21:50 (ET). Electronically Signed: Herve Alejandra MD at 11:23 EDT , Head/Neck CTA 12/06/21 11:11 IMPRESSION: Calcific plaque at the origins of the right and left internal carotid artery causing between 50 and 60% narrowing. N.B. : The above Results were Read Back by Herve Alejandra MD to Pablo Gavin and understanding confirmed on 12/06/2021 11:38:01 (ET). Electronically Signed: Herve Alejandra MD at 11:39 EDT , ADDENDUM: 12/06/21 1146 IMPRESSION: Calcific plaque at the origins of the right and left internal carotid artery causing between 50 and 60% narrowing. N.B. : The above Results were Read Back by Herve Alejandra MD to Pablo Gavin and understanding confirmed on 12/06/2021 11:38:01 (ET). Electronically Signed: Herve Alejandra MD at 11:39 EDT , Chest X-Ray 12/06/21 12:30 IMPRESSION: The lungs are clear. Electronically Signed: Herve Alejandra MD at 12:59 EDT , Physical Exam Narrative Physical exam: General: Alert, Oriented x3, Cooperative, No apparent distress HEENT: Atraumatic Oral: Moist Mucosa Neck: Supple Lungs: Clear to auscultation Cardiovascular: HS I+II, regular, no murmurs Abdomen: Bowel Sounds Present, Soft, Non Tender Extremities: No edema Skin: No rashes, No breakdown Neurological: Grossly intact Psych/Mental Status: Appropriate Assessment & Plan Assessment/Plan (1) Stroke: PLAN: Plan 1. Acute stroke with left hemiparesis, status post tPA Patient has no residual neurological symptoms MRI of the brain is pending Aspirin after 24 hours of tPA PT/OT/ST consulted [facility] teleneurology after MRI brain 2. Bilateral carotid stenoses, 50-60%, seen on CTA of the head and neck Continue on statin, aspirin 3. Hypertension, controlled, continue on Losartan 4. Hyperlipidemia, continue on statin 5. Anemia/thrombocytopenia, chronic 6. Stage IIIa ovarian cancer, follows with oncology 7. Neuropathy, continue on gabapentin 8. Restless leg syndrome, stable, continue mirapex 9. DVT PPx- SCDs Charges/Coding Visit Charges Inpatient E&M: 42725 Subs Hosp L3
[2021-12-07] MEDS: Sertraline 100 MG Tablet 200 MG PO (08:44)
[2021-12-07] MEDS: Cyanocobalamin 500 MCG Tablet 1000 MCG PO (08:44)
[2021-12-07] MEDS: Gabapentin 600 MG Tablet PO ×2 (08:45→22:11)
[2021-12-07] MEDS: FLU VACC QS2022-23(6MOS UP)/PF 60 MCG/0.5 ML SYRINGE IM (10:13)
--- NOTE | 2021-12-07 13:00 | MRI_ITS ---
STUDY: MRI BRAIN WITHOUT CONTRAST REASON FOR EXAM: Female, 76 years old. stroke post tpa, L weakness TECHNIQUE: Standardized multiplanar fat and water weighted pulse sequences were obtained. COMPARISON: Head CT dated December 06, 2021 FINDINGS: There is mild cerebral atrophy with widening of the extra-axial spaces and ventricular dilatation. There are a limited number of small white matter hyperintensities, distributed throughout the deep white matter tracts of the cerebral hemispheres, consistent with mild chronic white matter ischemic changes. Focal volume loss and gliosis is present in superior and posterior aspect of the right parietal lobe related to an old infarct. There is no evidence for recent intracranial ischemia or other cause of cytotoxic edema on diffusion weighted imaging (DWI). Normal T2* images of the brain without demonstrated susceptibility artifact. There is no demonstrated hemosiderin stain. Normal bilateral basal ganglia. Normal thalami. There is no extra-axial fluid accumulation. Normal flow voids within the major intracranial circulation suggesting patency by spin echo criteria. Normal sella turcica, pituitary gland, infundibular stalk, optic chiasm and hypothalamus. Normal tectal plate and pineal gland. Normal midbrain, ellis and medulla. Normal cerebellum. Normal basal cisterns. Normal bilateral temporal bones. Normal bilateral internal auditory canals. No demonstrated orbital abnormality, within the constraints of a routine brain study. Normal visualized paranasal sinuses. Normal calvarium and skull base. Normal visualized soft tissue structures. Normal visualized upper cervical spine. MRI/Brain without Contrast IMPRESSION: 1. Involutional and chronic ischemic changes of the brain, as described above. 2. Old infarct and volume loss in the superior aspect of the right parietal lobe 3. No demonstrated acute infarct or intracranial hemorrhage Electronically Signed: Pee Werner MD at 15:16 EDT ,
--- NOTE | 2021-12-07 13:55 | PCM.PN.INT ---
Assessment & Plan Assessment/Plan (1) Stroke: (2) Pancytopenia: (3) RLS (restless legs syndrome): (4) Ovarian cancer: QUALIFIERS: Laterality: bilateral Qualified Code(s): C56.3 - Malignant neoplasm of bilateral ovaries PLAN: Plan 1. Acute mild stroke with left hemiparesis, tingling, unsteadiness with ambulation, now completely resolved after tPA. -Plan per hospitalist service -There was no need for IV vasoactive agents overnight. -Patient transferring out of ICU today. Critical care will sign off her case. Thank you for consulting critical care on your pleasant patient. Management of other medical problems as per primary team, please do not hesitate to call with any questions. Critical care time spent with patient at bedside, review of documentation, lab results, radiology and other test results, discussion with colleagues and ancillary staff, clinical management of patient, and updating family if applicable, was 35 minutes. This time does not include any procedures, if performed. Critical care codes for today: 76934. Subjective Subjective Patient has no complaints this morning, specifically no worsened weakness overnight, her baseline left-sided motor function has returned to normal. She is stable and ready to transfer out of ICU after she completes her 24-hour post tPA monitoring. Objective Data Objective Data Vital Signs: Vital Signs Temp Pulse Resp BP Pulse Ox O2 Del Method 36.7 C 81 20 H 126/92 H 93 Room Air 12/07/21 12:00 12/07/21 13:00 12/07/21 13:00 12/07/21 13:00 12/07/21 13:00 12/07/21 13:00 Oxygen Delivery Method Room Air Weight: 79.9 kg Body Mass Index (BMI) 34.9 Intake & Output: Intake and Output for Last 24 Hours 12/05/21 12/06/21 12/07/21 23:59 23:59 23:59 Intake Total 404 / 1319 1840 / 1840 Output Total 100 / 400 1600 / 1600 Balance 304 / 919 240 / 240 Lab / Micro Data Result Diagrams: 12/07/21 04:30 12/07/21 04:30 Labs: Laboratory Results - last 24 hr 12/07/21 00:55: Urine Color Yellow, Urine Clarity Clear, Urine pH 7.0, Ur Specific [place] 1.005, Urine Protein Negative, Urine Glucose (UA) Normal, Urine Ketones Negative, Urine Occult Blood 50 H, Urine Nitrite Negative, Urine Bilirubin Negative, Urine Urobilinogen Normal, Ur Leukocyte Esterase 100 H, Urine RBC 0-5 SEEN, Urine WBC 0-5 SEEN, Ur Squamous Epith Cells 0 SEEN, Urine Bacteria 1+, Urine Mucus 0 SEEN 12/07/21 04:30: WBC 4.8, RBC 3.18 L, Hgb 10.8 L, Hct 32.3 L, MCV 101.6 H, MCH 34.0 H, MCHC 33.4, RDW Std Deviation 49.3 H, RDW Coeff of Glenn 13.2, Plt Count 127 L, MPV 9.2, Immature Gran % (Auto) 0.400, Neut % (Auto) 65.0, Lymph % (Auto) 24.4, [place] % (Auto) 6.9, Eos % (Auto) 3.1, Baso % (Auto) 0.2, Absolute Neuts (auto) 3.1, Absolute Lymphs (auto) 1.17, Nucleated RBC % 0 12/07/21 04:30: Sodium 142, Potassium 4.1, Chloride 108 H, Carbon Dioxide 27.0, Anion Gap 7, BUN 13, Creatinine 0.72, Estim Creat Clear Calc 33.84, Est GFR (MDRD) Af Amer 102, Est GFR (MDRD) Non-Af 84, BUN/Creatinine Ratio 18.2, Glucose 105, Calcium 8.9, Phosphorus 4.0, Magnesium 2.0, Total Bilirubin 0.50, AST 22, ALT 25, Alkaline Phosphatase 103, Total Protein 6.4, Albumin 3.4, Globulin 3.0, Albumin/Globulin Ratio 1.1, Triglycerides 153, Cholesterol 148, LDL Cholesterol 69, VLDL Cholesterol 31, HDL Cholesterol 48 Physical Exam Narrative Unchanged from yesterday's exam: Well-developed pleasant woman in no acute distress. HEENT: Extraoculars are intact, no nystagmus, oculocephalics intact, pupils are equal and reactive, no scleral icterus or conjunctival injection, normal focus, I did not check visual meek, but patient had no complaints of change in vision taste smell or hearing. Neck is supple Chest is clear bilaterally with no wheezes rales or rhonchi. Breathing is unlabored. A port is present in the right upper chest, dressing clean and dry. Heart normal S1-S2 with a 1/6 systolic murmur heard to the left of the sternal notch Abdomen is nondistended Extremities have no clubbing cyanosis or edema, chronic changes of rheumatoid arthritis are present in the hands Neuro: Alert and oriented x3, normal speech, conversational content, insight, and memory. 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 Unable to test gait until her 24-hour bedrest time has passed.
--- NOTE | 2021-12-07 14:19 | CASEMGMT ---
Social Work SW met with pt and completed PHQ9 depression screen as pt admitted for stroke. Pt score of 2 of 29 indicating minimal depression. SW spoke with pt regarding correlation between stroke and depression. SW left stroke support group flyer in pt room. KALYAN Talbot
--- NOTE | 2021-12-07 15:02 | CHAPLAIN ---
Type of Pastoral Visit _x__ Initial Visit ___ Follow-up Visit ___ On-call Visit ___ General Patient Visit ___ Spiritual Assessment ___ Family Conference ___ Bereavement ___ Rapid Response ___ Code Blue ___ Other (describe below) Pastoral Care Referral From _x__ Patient ___ Family ___ Nurse ___ Physician ___ Racing Manager ___ Hospice Superintendent ___ Other (describe below) Sacrament/Intervention _x__ Active listening ___ Anointing ___ Samaritan ___ Bereavement ___ Communion ___ Nhi exploration ___ _x__ Life review _x__ Prayer ___ Reconciliation ___ Sacrament of Sick ___ Supportive presence ___ Wedding ___ Other (describe below) Pastoral Comments patient is talkative and expressive about her situation, her family and friends, and her perspective toward this illness and nhi in God; pt welcomes prayers for her recovery and friends; a sister is with patient at this time too for support
--- NOTE | 2021-12-07 16:00 | CASEMGMT ---
RN REDDY GAMEPLAY ENGINEER CM to room to meet with patient for initial transition planning/care coordination assessment. RN REDDY introduced self and role at [facility]. Pt voices understanding and consents to assessment at this time. Pt resting in bed in no distress at this time. Pt is A/O at this time and answers all questions appropriately. Care providers, pharmacy, and demographics verified/updated at this time. PCP: Dr Farmer Specialists: Dr Smyth-oncology Preferred Pharmacy: [facility] Retail Insurance: [employer] DYE Prescription Benefit: Yes Living Will/HPOA: Pt has LW and HPOA, who is her daughter, Ira LNOK: Dtr, Ira Living Arrangements: Pt lives w/dtr, Ira, Son-in-law, and grandson in 2-story home w/5 steps to enter. Pt's bedroom is on 2nd floor w/14 steps to go up. There is a bathroom on 2nd floor also. Pt states she is independent w/ADL's and IADL's. Transportation: Pt states drives self and states no transportation concerns at this time. DME: States has the following DME: shower chair, rollator, cane. Pt requested info on medical alert button. Given at this time. Pt states no need for further DME at this time. HHC/SNF: no hx of either. Denies need for HHC. Pt states she is interested in doing OP therapy. She was made aware a script can be provided prior to discharge and she can take to any location of her choice. Pt wishes to return home and states has no concerns with going home at time of discharge. CM to follow for any further discharge planning/needs. Pt voices no further concerns/needs at this time. Advised pt to ask for CM if any further questions/concerns/needs arise. Voices understanding. PLAN: Home w/family support and discharge plans in place. Script for OP therapy placed on pt's chart, awaiting physician signature. Pt to be given script for OP therapy prior to discharge. Paige TIJERINA RN, CM
[2021-12-07] MEDS: Aspirin 81 MG TAB.CHEW PO (18:17)
[2021-12-07] MEDS: Pramipexole Di-HCl 0.25 MG Tablet PO (22:11)
[2021-12-07] MEDS: 0.9% Saline Lock 10 ML Syringe IV (22:12)
[2021-12-08] VITALS (8 sets, daily range): BP systolic 119–124; BP diastolic 64–83; PULSE 63–88; RESP 16–18; TEMP 36–36.8; O2SAT 94–99; BMI 34.9
--- NOTE | 2021-12-08 07:51 | TELEMED_ITS ---
[facility] Telemed has confirmed receipt of a request for visit. This document confirms receipt of the order initiating the consult. To find the results of the consultation, please view the patient's reports for the scanned Telemed Consult.
--- NOTE | 2021-12-08 07:57 | PCM.DC ---
Discharge Instructions Diet Discharge Diet: Low fat / Low cholesterol and 2000 mg Sodium Diet Activity Discharge Activity: Return to Normal Activity Follow Up Care Test Results: Test results from this visit will be discussed in further detail at your follow-up appointment, if applicable. Discharge Plan Admission Admit Date/Time: 12/06/21 12:07 Primary Reason for Your Visit: Acute stroke Attending Provider: Flori Lewis Primary Care Provider: Magi Farmer Consulting Providers: Soniya Powell ; Rl Hoffmann ; Mario Beasley ; Andre Medrano ; Carlos A Cruz ; Na Burroughs SPRINKLER FITTER APPRENTICE Instructions Additional Instructions / Restrictions: Take note of your new medications Follow-up with your neurologist within 4 weeks. Follow-up with outpatient therapy. Discharge Orders/Prescriptions Prescriptions: New aspirin 81 mg Tablet,Chewable 81 mg PO BREAKFAST 30 Days Qty: 30 0RF Continued rosuvastatin 5 mg tablet 5 mg PO SUMOWEFR Rx Instructions: patient takes 4 times a week PreserVision AREDS 14,320-226-200 qhng-uw-grxe capsule 1 cap PO BID lidocaine-prilocaine 2.5-2.5 % cream 1 applic topical ONCE PRN (Reason: port access) 30 Days Qty: 30 2RF cyanocobalamin (vitamin B-12) 1,000 mcg capsule 1,000 mcg PO DAILY losartan 25 mg tablet 12.5 mg PO DAILY sertraline 100 mg tablet 200 mg PO DAILY Label Comments: DEPRESSION niraparib 100 mg PO/SL DAILY@2200 gabapentin 300 mg Capsule 300 mg PO 4X/DAY ropinirole 0.5 mg tablet 0.5 mg PO DAILY Discontinued potassium chloride [Klor-Con] 20 mEq packet 20 meq PO DAILY Referrals / Follow Up: Magi Farmer MD [Primary Care Provider] - Within 1 Week Mike Hays MD [Non-Staff -Ordering Privileges] - Within 1 Month Disposition Disposition (needs filled in before D/C Order can be placed): Home, Self Care
[2021-12-08] MEDS: Aspirin 81 MG TAB.CHEW PO (09:41)
[2021-12-08] MEDS: Losartan Potassium 25 MG Tablet 12.5 MG PO (09:41)
[2021-12-08] MEDS: Cyanocobalamin 500 MCG Tablet 1000 MCG PO (09:42)
[2021-12-08] MEDS: Sertraline 100 MG Tablet 200 MG PO (09:42)
[2021-12-08] MEDS: Gabapentin 600 MG Tablet PO (09:42)
--- NOTE | 2021-12-08 12:18 | DS.PCM_ITS ---
Providers Date of Admission: 12/06/21 Date of Discharge: 12/08/21 Primary Care Physician: Dr. Magi Farmer MD Consultations 12/06/21 11:42 Consult: Manager Secondary / Pulmonary Medicine Routine Consulting Provider: Pulmonary Medicine genaro Halstad Reason for Consult: stroke for alteplase EMERGENT Consult: Yes MD Notified: Yes Date Notified: 12/06/21 Time Notified: 11:42 Method of Notification: Verbal Comments:: If admitted, Hospitalist will consult Manager Secondary Reason For Visit: STROKE Diagnosis Discharge Diagnosis (1) Stroke: Status: Acute Code(s): I63.9 - Cerebral infarction, unspecified (2) Pancytopenia: Status: Chronic Code(s): D61.818 - Other pancytopenia (3) RLS (restless legs syndrome): Status: Suspected Code(s): G25.81 - Restless legs syndrome (4) Ovarian cancer: Status: Acute Code(s): C56.9 - Malignant neoplasm of unspecified ovary Qualifiers: Laterality: bilateral Qualified Code(s): C56.3 - Malignant neoplasm of bilateral ovaries Plan 1. Acute stroke with left hemiparesis, status post tPA 2. Bilateral carotid stenoses, 50-60% 3. Hypertension 4. Hyperlipidemia 5. Anemia/thrombocytopenia, chronic 6. Stage IIIa ovarian cancer 7. Neuropathy 8. Restless leg syndrome Medications at Discharge Home Medications vitamins A,C,T-foro-hyagho 14,320 unit-226 mg-200 unit capsule (PreserVision AREDS) 1 cap PO BID EYE HEALTH 12/29/20 rosuvastatin 5 mg tablet 5 mg PO SUMOWEFR CHOLESTEROL 01/01/21 sertraline 100 mg tablet 200 mg PO DAILY DEPRESSION 01/01/21 lidocaine-prilocaine 2.5 %-2.5 % topical cream 1 applic topical ONCE PRN port access 30 days #30 grams 01/22/21 cyanocobalamin (vitamin B-12) 1,000 mcg capsule 1,000 mcg PO DAILY SUPPLEMENT 05/31/21 losartan 25 mg tablet 12.5 mg PO DAILY BLOOD PRESSURE 11/01/21 gabapentin 300 mg capsule 300 mg PO 4X/DAY NERVE PAIN 12/06/21 niraparib 100 mg PO/SL DAILY@2200 CANCER MAINTENANCE 12/06/21 ropinirole 0.5 mg tablet 0.5 mg PO DAILY RLS 12/06/21 aspirin 81 mg chewable tablet 81 mg PO BREAKFAST 30 days #30 tabs 12/08/21 Hospital Course Operations None Procedures 2-D Echocardiogram Summary of Care Provided Minutes Spent on Discharge: 35 Hospital Course: 76-year-old female with past medical history of ovarian CA, status post chemotherapy, follows with oncology in the outpatient, history of TIA, who comes in with a left-sided weakness and tingling numbness of the face and extremities. Patient was getting blood drawn for outpatient follow-up. She noted some tingling and stiffness in the left arm and felt like she had to sit down. She admits to some nausea but denied any vomiting. Patient was last known well at 10:10 AM. Initial NIHSS score was 3. Initial brain CT showed chronic ambulatory changes, focal area of decreased attenuation seen in the superior aspect of the right posterior parietal lobe. CT of the head and neck showed plaque at the origin of the right and left internal carotid arteries causing between 50- 60% narrowing. Patient was felt to be a tPA candidate and received tPA on 12/06/21 at 11:39 AM. She was managed subsequently in the ICU per post tPA protocol. Post 24-hour tPA MRI of the brain showed ambulates showed chronic ischemic changes of the brain, old infarct and volume loss in the superior aspect of the right parietal lobe. No demonstrated acute infarct on intracranial hemorrhage. Patient was started on aspirin and statin. 2D echo was pending at time of discharge. Patient to follow-up with her primary care doctor within 1 week as well as with neurologist within 2 to 4 weeks. Physical Exam Narrative Physical exam: General: Alert, Oriented x3, Cooperative, No apparent distress HEENT: Atraumatic Oral: Moist Mucosa Neck: Supple Lungs: Clear to auscultation Cardiovascular: HS I+II, regular, no murmurs Abdomen: Bowel Sounds Present, Soft, Non Tender Extremities: No edema Skin: No rashes, No breakdown Neurological: Grossly intact Psych/Mental Status: Appropriate Weight / BMI Weight Weight: 77.8 kg Body Mass Index (BMI) 34.9 ABG / Lab / Microbiology Data Result Diagrams: 12/07/21 04:30 12/07/21 04:30 Radiography Diagnostic Testing: Radiology Impression Brain MRI 12/07/21 13:00 IMPRESSION: 1. Involutional and chronic ischemic changes of the brain, as described above. 2. Old infarct and volume loss in the superior aspect of the right parietal lobe 3. No demonstrated acute infarct or intracranial hemorrhage Electronically Signed: Pee Werner MD at 15:16 EDT , D/C Instructions Discharge Diet: Low fat / Low cholesterol and 2000 mg Sodium Diet Meaningful Use Info Meaningful Use Diagnoses (Choose all that apply): Ischemic CVA CVA Therapy Assessed for PT,OT and/or ST?: Yes Ischemic Stroke Antithrombotic order at d/c?: Yes Dx of Atrial fib/flutter?: No Anticoagulant at discharge?: No Reason anticoagulant not ordered: Treatment not Indicated Statins at discharge?: Yes Primary Dx Acute Ischemic CVA?: Yes IV tPA ordered during stay?: Yes Discharge Plan Admission Admit Date/Time: 12/06/21 12:07 Primary Reason for Your Visit: Acute stroke Attending Provider: Flori Lewis Primary Care Provider: Magi Farmer Consulting Providers: Soniya Powell ; Rl Hoffmann ; Mario Bealsey ; Andre Medrano ; Carlos A Cruz ; Na Burroughs CLINICAL RESEARCH SCIENTIST Instructions Additional Instructions / Restrictions: Take note of your new medications Follow-up with your neurologist within 4 weeks. Follow-up with outpatient therapy. Discharge Orders/Prescriptions Prescriptions: New aspirin 81 mg Tablet,Chewable 81 mg PO BREAKFAST 30 Days Qty: 30 0RF Continued rosuvastatin 5 mg tablet 5 mg PO SUMOWEFR Rx Instructions: patient takes 4 times a week PreserVision AREDS 14,320-226-200 xhye-jd-cyns capsule 1 cap PO BID lidocaine-prilocaine 2.5-2.5 % cream 1 applic topical ONCE PRN (Reason: port access) 30 Days Qty: 30 2RF cyanocobalamin (vitamin B-12) 1,000 mcg capsule 1,000 mcg PO DAILY losartan 25 mg tablet 12.5 mg PO DAILY sertraline 100 mg tablet 200 mg PO DAILY Label Comments: DEPRESSION niraparib 100 mg PO/SL DAILY@2200 gabapentin 300 mg Capsule 300 mg PO 4X/DAY ropinirole 0.5 mg tablet 0.5 mg PO DAILY Discontinued potassium chloride [Klor-Con] 20 mEq packet 20 meq PO DAILY Referrals / Follow Up: Magi Farmer MD [Primary Care Provider] - Within 1 Week Mike Hays MD [Non-Staff -Ordering Privileges] - Within 1 Month Disposition Disposition (needs filled in before D/C Order can be placed): Home, Self Care Charges/Coding Visit Charges Inpatient E&M: 40296 Disch Hosp
[2021-12-08] MEDS: 0.9% Saline Lock 10 ML Syringe IV (15:40)
--- NOTE | 2021-12-08 16:01 | NURSING ---
Charting reviewed with Daysi Sellers RN.
== END 2021-12-08 15:58 | disposition home or self-care (01) | DRG 62 ==
LOC: ED 12:23 → ICU 13:43 → PCU 12-07 17:19
PROVIDERS: Admitting Provider Internal Medicine; Emergency Provider Emergency Medicine; PCP Family Medicine; Visit Provider Internal Medicine
DX: I63.9 Cerebral infarction, unspecified (principal); D61.818 Other pancytopenia; G81.94 Hemiplegia, unspecified affecting left nondominant side; C56.3 Malignant neoplasm of bilateral ovaries; D69.6 Thrombocytopenia, unspecified; E11.42 Type 2 diabetes mellitus with diabetic polyneuropathy; E11.40 Type 2 diabetes mellitus with diabetic neuropathy, unspecified; D64.9 Anemia, unspecified; G25.81 Restless legs syndrome; I10 Essential (primary) hypertension; M79.7 Fibromyalgia; I44.0 Atrioventricular block, first degree; M48.02 Spinal stenosis, cervical region; I65.23 Occlusion and stenosis of bilateral carotid arteries; E78.5 Hyperlipidemia, unspecified; Z23 Encounter for immunization; Z79.2 Long term (current) use of antibiotics; Z92.82 Status post administration of tPA (rtPA) in a different facility within the last 24 hours prior to admission to current facility; Z92.21 Personal history of antineoplastic chemotherapy; Z79.82 Long term (current) use of aspirin
CPT/HCPCS: 36591; 51702; 70450; 70496; 70498; 70551; 71045; 80048; 80053; 80061; 81001; 82962; 83735; 84100; 84484; 85025; 85610; 85730; 93005; 93306; 97162; 97530; 97803; 99285; G0008; J2997; J7030; Q9967; 90686; A4216; J3490

== ENCOUNTER → 2022-02-08 | Outpatient (CLI) | payer MEDICARE, BC, SELFPAY ==
--- NOTE | 2022-02-08 10:55 | ART_ITS ---
Reason For Study: Absent Pedal Pulses, Claudication Procedure A bilateral lower extremity continuous wave Doppler with analog waveform analysis and ankle brachial indexes. Left Segmental Pressures Left brachial= 150mmHg. Left posterior tibial artery = 178mmHg. Left dorsalis pedis artery = 165mmHg. Left digit = 80 mmHg. Right Segmental Pressures Right brachial= 143mmHg. Right posterior tibial artery = >254mmHg. Right dorsalis pedis artery = >254mmHg. Right digit = 110 mmHg. Indices The right ankle brachial index by the posterior tibial artery is NC. The right ankle brachial index by the dorsalis pedis is NC. The right digital-brachial index is 0.73. The left ankle brachial index by the posterior tibial artery is 1.19. The left ankle brachial index by the dorsalis pedis is 1.10. The left digital-brachial index is 0.53. VL/Ankle Brachial Index Interpretation Summary Triphasic Doppler waveforms are noted at ankle level on the right. Biphasic Dop pler waveforms are noted at ankle level on the left. Pulse-volume recordings appear diminished at digital level on the left. The resting right ankle-brachial index could not be determined due to the non-compressibility of the vasculature at ankle level on the right. The resting left ankle-brachial index is normal. The right digital-brachial index is normal. The left digital-brachial index is mild ly diminished. There is evidence of arterial calcification at ankle level on the right. Arteri al flow appears normal at ankle level bilaterally, and at digital level on the right. There is evidence of mild arterial occlusive disease at digital level on the left. Ordering Physician: Mike Hays Referring Physician: Magi Farmer Performed By: Linda Brown RDCS/RVT
== END | disposition home or self-care (01) ==
LOC: CVS 10:55
PROVIDERS: PCP Family Medicine; Referring Provider Psychiatry & Neurology Neurology; Visit Provider Psychiatry & Neurology Neurology
DX: R09.89 Other specified symptoms and signs involving the circulatory and respiratory systems (principal)
CPT/HCPCS: 93922

== ENCOUNTER 2022-02-20 12:00 | Outpatient (RCR) | payer MEDICARE, BC, SELFPAY ==
--- NOTE | 2021-12-18 09:59 | HP.PTEVAL ---
Patient's Visit Information YUNG GAUTHIER is a 76 year old F referred to Physical Therapy by Out of Town Doctor with a diagnosis of CVA. Date of Evaluation: 12/18/21 Physical Therapist: Jose Sellers, PT, ATC - Visit Plan Frequency: 2-3x /Week Duration: 4-6 Weeks Plan: B LE strengthening, balance and proprio, stair negotiation, gait training, nustep, and HEP - Subjective CVA: . Pt reports she was at the cancer center receiving treatment when she became very light headed and needed to sit down. Pt is currently being treated for ovarian cancer. Pt reports she had a TIA 13 years ago which left the L LE weak. Pt reports this CVA has effected the L side of her body again. Pt reports she feels weak in her L LE and numb. Pt reports she has stairs at home that she has to negotiate one at a time. Pt lives with her daughter and son in law and they take good care of her. Pt reports she is not in any pain today. Pt reports no recent falls. Pt notes she does have a Hx of falls which she attributes to being clumsy. Pt reports she feels more tired now and is less tolerant to activity. - Objective Neuro: B LE sensation is WNL to light touch. B patellar reflexes= 1/3. MMT: L LE is grossly 3+/5 while R LE is 4/5 throughout. ROM: B LE's are WFL at this time. Gait: Pt is able to ambulate 140' with cane until feeling fatigued. FGA: 10/06 indicating she is a fall risk at this time - Balance/Special Test Scores Functional Gait Assessment Score: 7 % Disability: 76.6700 Lower Extremity Functional Score: 27 - Goals Goal 1:: Increase B LE strength x 1 grade to aid with stair negotiation Goal Time Frame: 4-6 Weeks Goal 2:: Pt will be able to ambulate greater than 600 feet with LRD to aid with community ambulation Goal Time Frame: 4-6 Weeks Goal 3:: Increase FGA score x 5 points to aid with decreasing risk for falling Goal Time Frame: 4-6 Weeks Goal 4:: I with HEP Goal Time Frame: 4-6 Weeks - Rehabilitation Potential Physical Therapy Diagnosis: Pt has L LE weakness, difficulty with stair negotiation, and intolerance for prolonged ambulation secondary to CVA Rehabilitation Potential: Good - Anticipated Interventions Patient/Client Instruction: Educate patient on: Condition, Plan of Care For the Purpose of:: To improve self management Therapeutic Exercise to Include: Strength training, Endurance training, Balance training, Gait and locomotor training For the Purpose of:: To improve muscle performance and motor function, To increase tolerance to activity/condition/position, To improve ability of physical actions for home/community/work/leisure Thank you for the opportunity to evaluate your patient. For Medicare and Medicare HMO plans, please review the plan of care and approve it. It will need to be FAXED BACK to us at [phone] for Medicare purposes. For Medicare only, by signing this I certify the plan of care. Please let me know if there are questions or concerns regarding this plan of care. Physician Signature: Date:
--- NOTE | 2022-01-16 12:13 | HP.PTREVAL ---
Dr. Magi Farmer MD, It has been my pleasure to treat YUNG GAUTHIER over the last 8 visits for CVA. Please see the progress note below for an update on the physical therapy plan of care! Subjective: Pt reports she saw her Neurologist yesterday and he wants her to continue with PT. also wants pt to strengthen her arms. Objective/Function: MMT: R LE 4/4 and L LE is 4-/5 throughout. Gait: Pt is able to ambulate greater than 600 feet without difficulty. FGA: 02/06. Pt is progressing well but still demonstrates difficulty with gait and LE weakness. Plan Plan: Cont with current POC. Add UE strengthening Balance/Gait/Functional tests - Balance/Special Test Scores Functional Gait Assessment Score: 11 % Disability: 63.3400 Lower Extremity Functional Score: 23 Goals Goal 1:: Increase B LE strength x 1 grade to aid with stair negotiation Goal Time Frame: 4-6 Weeks Goal Progress: Progressing Goal 2:: Pt will be able to ambulate greater than 600 feet with LRD to aid with community ambulation Goal Time Frame: 4-6 Weeks Goal 3:: Increase FGA score x 5 points to aid with decreasing risk for falling Goal Time Frame: 4-6 Weeks Goal Progress: Progressing Goal 4:: I with HEP Goal Time Frame: 4-6 Weeks Goal Progress: Progressing Goal 5:: Pt will ambulate 1000 feet until needing to rest Goal Time Frame: 4-6 Weeks Goal Progress: New goal Anticipated Interventions Patient/Client Instruction: Educate patient on: Condition, Plan of Care For the Purpose of:: To improve self management Therapeutic Exercise to Include: Strength training, Endurance training, Balance training, Gait and locomotor training For the Purpose of:: To improve muscle performance and motor function, To increase tolerance to activity/condition/position, To improve ability of physical actions for home/community/work/leisure Please do not hesitate to contact me at [phone] by phone or if you have questions or concerns regarding this new plan of care! Sincerely, Jose Sellers, PT, ATC
--- NOTE | 2022-02-20 12:45 | HP.PTDCSUM ---
It has been my pleasure to treat YUNG GAUTHIER referred by Dr. Magi Farmer MD, with the diagnosis of CVA for a total of 14 visit(s). Discharge Date: Please see the following information for a summary of their discharge status. Subjective: Pt reports she is ready for discharge this date. Pt reports her cancer counts are back up and she needs to deal with that. % Improvement: 25 Objective/Function: MMT: R LE is grossly 4/5 and L LE is grossly 4-/5 throughout. Gait: Pt reports she is too fatigued to ambulate for distance today or complete the FGA test. Pt is I with HEP. Rx goals partially achieved Goal 1:: Increase B LE strength x 1 grade to aid with stair negotiation Goal Progress: Progressing Goal 2:: Pt will be able to ambulate greater than 600 feet with LRD to aid with community ambulation Goal Progress: Progressing Goal 3:: Increase FGA score x 5 points to aid with decreasing risk for falling Goal Progress: Progressing Goal 4:: I with HEP Goal Progress: Progressing Goal 5:: Pt will ambulate 1000 feet until needing to rest Goal Progress: New goal Plan: Discontinued to HEP If there are questions or concerns regarding this patient's physical therapy, please feel free to call me at [phone]. Thank you for the referral of this patient. Sincerely, Jose Sellers, PT, ATC Balance/Gait/Functional tests - Balance/Special Test Scores Functional Gait Assessment Score: 11 % Disability: 63.3400 Lower Extremity Functional Score: 22
== END 2022-02-20 13:35 | disposition home or self-care (01) ==
LOC: PT 12:00
PROVIDERS: PCP Family Medicine; Referring Provider Internal Medicine; Visit Provider Family Medicine
DX: I69.344 Monoplegia of lower limb following cerebral infarction affecting left non-dominant side (principal)
CPT/HCPCS: 97110; 97161; 97164

== ENCOUNTER → 2022-02-26 | Outpatient (CLI) | payer MEDICARE, BC, SELFPAY ==
--- NOTE | 2022-02-26 07:49 | CT_ITS ---
EXAM: CT CHEST, ABDOMEN AND PELVIS WITH INTRAVENOUS CONTRAST CLINICAL INDICATION: OVARIAN CA/ELEVATED CA-125/IV ONLY TECHNIQUE: Helically acquired images were obtained of the chest, abdomen and pelvis with intravenous contrast. This CT exam was performed using one or more of the following dose reduction techniques: automated exposure control, adjustment of the mA and/or kV according to patient size, and/or use of iterative reconstruction technique. This report was created using [employer] report generation technology. CONTRAST: IV 100mL Isovue-300 RADIATION DOSE: CTDIvol = 14.86 mGy, DLP = 1692.48 mGy-cm COMPARISON: CT Aug 24 2021 8:06am FINDINGS: CHEST: LUNGS AND PLEURAL SPACES: There is no pneumothorax. There is no demonstrated pleural abnormality. No mass. HEART: There are calcifications of the coronary arteries. Heart size is normal. No pericardial effusion. MEDIASTINUM: Unremarkable. No mediastinal or hilar adenopathy. Esophagus is unremarkable. No hiatal hernia. THYROID: Unremarkable. No thyroid lesions. ABDOMEN: LIVER: Stable hypodensity in the inferior right lobe of the liver. Se 3 IM 43. GALLBLADDER AND BILE DUCTS: Normal gallbladder and extrahepatic biliary system. No calcified gallstones. No gallbladder distention or wall edema. No intra- or extrahepatic biliary ductal dilation. PANCREAS: Normal pancreas. No focal cystic or solid mass. SPLEEN: Normal spleen. ADRENALS: Normal bilateral adrenal glands. KIDNEYS AND URETERS: No acute findings of the right kidney. No acute findings of the left kidney. Normal renal size and position. No hydronephrosis. STOMACH AND BOWEL: Normal visualized stomach. Normal small intestine. There are multiple colonic diverticula consistent with diverticulosis. No stomach or bowel distention. No focal inflammatory change. PELVIS: APPENDIX: The appendix is visualized and appears normal. BLADDER: Normal urinary bladder. REPRODUCTIVE: There is absence of the uterus consistent with a prior hysterectomy. CHEST, ABDOMEN and PELVIS: INTRAPERITONEAL SPACE: Unremarkable. No ascites or other fluid collection. No free air. BONES/JOINTS: There are diffuse degenerative changes of the visualized lumbar spine. There is bilateral neural foraminal stenosis at L4-5 and L5-S1. There is a Grade 1 anterolisthesis of L5 on S1. There are degenerative changes of the shoulders. There are multi-level degenerative changes of the thoracic spine. No suspicious lytic or blastic abnormality. SOFT TISSUES: There is an umbilical hernia containing fat. VASCULATURE: There is atherosclerotic calcification of the aortic arch with tortuosity and elongation of the aortic arch and descending thoracic aorta. There are calcifications of the abdominal aorta. This is consistent for atherosclerotic disease. There is no abdominal aortic aneurysm. No aortic dissection. No obvious central pulmonary embolism although this study was not performed with the pulmonary embolism protocol. LYMPH NODES: Unremarkable. No enlarged lymph nodes. TUBES, LINES AND DEVICES: A right-sided Port-A-Cath is seen with the tip in the superior vena cava. CT/CT Chest, Abd, Pel w/Contrast IMPRESSION: 1. There are diffuse degenerative changes of the visualized lumbar spine. 2. There is bilateral neural foraminal stenosis at L4-5 and L5-S1. 3. No evidence for metastatic disease to the chest abdomen or pelvis. 4. There is a Grade 1 anterolisthesis of L5 on S1. Electronically Signed: Jose Marley MD at 21:29 EST ,
[2022-02-26] MEDS: 0.9% Saline Lock 10 ML Syringe IV (08:06)
== END | disposition home or self-care (01) ==
LOC: CT 07:48
PROVIDERS: PCP Family Medicine; Referring Provider Internal Medicine Medical Oncology; Visit Provider Internal Medicine Medical Oncology
DX: C56.9 Malignant neoplasm of unspecified ovary (principal)
CPT/HCPCS: 71260; 74177; Q9967; A4216

== ENCOUNTER → 2022-03-26 | Outpatient (CLI) | payer MEDICARE, BC, SELFPAY ==
--- NOTE | 2022-03-26 07:56 | NM_ITS ---
CLINICAL: 76-year-old female with history of ovarian carcinoma. WHOLE BODY 99m Tc MDP RADIONUCLIDE BONE SCINTIGRAPHY COMPARISON: None available FINDINGS: Following the intravenous administration of 27.0 mCi of 99m Tc MDP, whole body bone images reveal: 1. There is increased tracer concentration noted in the first, ninth and 12th thoracic vertebra, the lower cervical spine posteriorly on the left, the third through fifth lumbar vertebra, the bilateral shoulders, the visualized right elbow and wrist, the knee articulations bilaterally. 2. The remaining skeletal structures are scintigraphically unremarkable with normal-appearing renal images and urinary bladder activity identified. NM/Bone Scan Whole Body IMPRESSION: 1. The increase in radiopharmaceutical concentration defined in the first, ninth and 12th thoracic vertebra, the cervical and lumbar spine, both shoulder articulations, the right elbow and wrist, both knees is commensurate with degenerative arthrosis. There is no typical scintigraphic evidence of osseous skeletal metastatic disease on the current examination. Electronically Signed: Matthew Edmonds, at 21:39 EST ,
== END | disposition home or self-care (01) ==
LOC: NM 07:56
PROVIDERS: PCP Family Medicine; Visit Provider Internal Medicine Medical Oncology
DX: M17.0 Bilateral primary osteoarthritis of knee (principal); C56.9 Malignant neoplasm of unspecified ovary; M47.812 Spondylosis without myelopathy or radiculopathy, cervical region; M19.021 Primary osteoarthritis, right elbow
CPT/HCPCS: 78306; A9503

== ENCOUNTER 2022-06-24 12:00 | Outpatient (RCR) | payer MEDICARE, BC, SELFPAY ==
--- NOTE | 2022-06-17 18:10 | HP.PTEVAL_ITS ---
Patient's Visit Information YUNG GAUTHIER is a 76 year old F referred to Physical Therapy by Dr. Mike Hays MD with a diagnosis of gait abnormality, history of CVA, TIA, PAD,. Date of Evaluation: 06/17/22 Physical Therapist: Tono Abrams DPT - Visit Plan Frequency: 2x /Week Duration: 6 Weeks Plan: Start with BLE/UE strengthening in pool. Advance to gait and balance exercises as tolerated. - Subjective Pt. is here today for her initial evaluation with diagnosis of Polyneuropathy, PAD, ischemic stroke (2008), TIA (2022), resulting in abnormality of gait. She has ovarian CA, currently doing chemotherapy. Pt. reports overall fatigued, but does most things I. Pt. uses a cane for her mobility both in home and outside. She does have a pool at home, with a platform stairs for entry. Pt. would like to increase her stability with gait and increase her strength without causing LE pain. She had does PT on land in the past and was having increased B knee pain for a few days afterwards. - Pain BLEs Pain Intensity (Out of 10): 0 Pain Intensity Range: 0, 6 - Objective POSTURE: pt. has slight FH posture, wide JAMIN in stance. PALPATION: Pt. has no pain with palpation of BLEs. No pitting edema present in BLEs. NEURO: Pt. reports decent sensation in BLEs, slight loss of light touch, normal to sharp touch. Pt. has 2+ DTR of BLEs throughout. ROM: Pt. has decent ROM of BLEs. Pt. has no pain with over pressures. Slight tightness in B Hamstrings. MMT: RLE: ankle 5/5 throughout; knee: ext 4+/5, flexion 4+/5; hip: flexion 5-/5, and 4/5, ext 4+/5. LLE: ankle 5-/5 throughout; knee: ext 4/5, flexion 4/5; hip: flexion 4/5, abd 4/5, ext 4/5. BUEs: 4/5 throughout. Core strength: poor. GAIT: pt. ambulates with a single point cane with fairly good stability. Pt. has increased lateral hip sway with out use of AD. Pt. has increased difficulty with directional changes. - Balance/Special Test Scores Functional Gait Assessment Score: 18 % Disability: 40.0000 Lower Extremity Functional Score: 22 TUG Test Time Seconds: 23.7 - Goals Goal 1:: LTG: Pt. to be I with HEP. Goal Time Frame: 4-6 Weeks Goal 2:: STG: pt. to be able to walk at local store without issues. Goal Time Frame: 2-4 Weeks Goal 3:: LTG: Pt. to have improved time on TUG to less than 15 seconds indicating improved stability. Goal Time Frame: 4-6 Weeks Goal 4:: LTG: Pt. to be have increased BLE and UE strength to 5/5 throughout. Goal Time Frame: 4-6 Weeks Goal 5:: LTG: pt. to have 21/30 on FGA indicating improved stability with all functional mobility. Goal Time Frame: 4-6 Weeks - Rehabilitation Potential Physical Therapy Diagnosis: Pt. has signs and symptoms consistent with gait abnormality, and BLE weakness. Pt. would benefit from PT in aquatic setting work on BLE/UE strengthening and stability with all gait/balance. Rehabilitation Potential: Excellent - Anticipated Interventions Patient/Client Instruction: Educate patient on: Condition, Plan of Care, Risk Factors, Benefits of Fitness Program For the Purpose of:: To facilitate caregiver knowledge, To improve self management, To prevent re-injury, To improve ability to perform tasks related to life management, To improve tolerance to ADL's Therapeutic Exercise to Include: Strength training, Power training, Endurance training, Balance training, Coordination, Postural training, Flexibilty training, Gait and locomotor training, In an aquatic setting For the Purpose of:: To decrease pain, To increase ROM, To improve nutrient delivery to tissue, To increase oxygenation perfusion, To improve muscle performance and motor function, To improve ability to perform ADL's, To improve health of tissue, To decrease soft tissue restriction, To increase flexibility/ROM Thank you for the opportunity to evaluate your patient. For Medicare and Medicare HMO plans, please review the plan of care and approve it. It will need to be FAXED BACK to us at [phone] for Medicare purposes. For Medicare only, by signing this I certify the plan of care. Please let me know if there are questions or concerns regarding this plan of care. Physician Signature: Date:_
== END 2022-06-24 19:00 | disposition home or self-care (01) ==
LOC: PT 12:00
PROVIDERS: PCP Family Medicine; Referring Provider Psychiatry & Neurology Neurology; Visit Provider Psychiatry & Neurology Neurology
DX: G62.9 Polyneuropathy, unspecified (principal); I73.9 Peripheral vascular disease, unspecified; Z86.73 Personal history of transient ischemic attack (TIA), and cerebral infarction without residual deficits; R26.9 Unspecified abnormalities of gait and mobility
CPT/HCPCS: 97113; 97161

== ENCOUNTER → 2022-07-10 | Outpatient (CLI) | payer MEDICARE, BC, SELFPAY ==
--- NOTE | 2022-07-10 10:10 | STRESSREP_ITS ---
Stress Test Report Date: 07/10/2022 Procedure: Pharmacologic stress nuclear imaging study Indications: Arrhythmia Consent: Per the patient Procedure: The patient underwent pharmacologic (Regadenoson 0.4mg ) evaluation with a peak heart rate of 81 beats per minute (57%predicted maximal heart rate) and a peak blood pressure of 150/70 mmHg. The baseline ECG demonstrated normal sinus rhythm. The peak pharmacologic ECG demonstrated no ischemic changes. There were no cardiac dysrhythmias pretest, during pharmacologic infusion, or recovery. There was no complaint of chest discomfort during pharmacologic infusion or recovery. The patient was injected with 14.2 millicuries of technetium 99m Cardiolite and subsequently rest SPECT Cardiolite nuclear imaging was obtained in the horizontal long, vertical long, and short axis views. The patient underwent pharmacologic (Regadenoson) evaluation. The patient was injected with 44.1 millicuries of technetium 99m Cardiolite and subsequently stress SPECT Cardiolite nuclear imaging was obtained in the horizontal long, vertical long, and short axis views. A gated Cardiolite study at peak stress was obtained. The examination was stopped secondary to completion of protocol. Rest and stress SPECT Cardiolite nuclear imaging status post realignment, normalization, and attenuation correction demonstrate a very small area of mildly reduced perfusion at the apex post stress. There is end systolic thickening and brightening. The gated Cardiolite study demonstrates myocardial thickening and inward wall motion. The reported LVEF is 72%. Impression: 1. Pharmacologic (Regadenoson) evaluation 2. Peak pharmacologic ECG with no ischemic changes. 3. There were no cardiac dysrhythmias pretest, during pharmacologic infusion, or recovery. 5. A very small area of mildly reversible apical defect that may denote mild ischemia. 6. The gated Cardiolite study reports an LVEF of 72%. This note was generated with [employer] software. It may contain incorrect words, spelling, and punctuation that were not noted in checking the note before signing.
== END | disposition home or self-care (01) ==
LOC: CVS 06:49
PROVIDERS: PCP Family Medicine; Referring Provider Internal Medicine Cardiovascular Disease; Visit Provider Internal Medicine Cardiovascular Disease
DX: I73.9 Peripheral vascular disease, unspecified (principal); I47.29 Other ventricular tachycardia; I63.9 Cerebral infarction, unspecified; R94.31 Abnormal electrocardiogram [ECG] [EKG]; I44.0 Atrioventricular block, first degree; E78.2 Mixed hyperlipidemia; I65.29 Occlusion and stenosis of unspecified carotid artery; I25.2 Old myocardial infarction
CPT/HCPCS: 78452; 93017; A9500; A4216; J2785

== ENCOUNTER → 2022-07-31 | Outpatient (CLI) | payer MEDICARE, BC, SELFPAY ==
--- NOTE | 2022-07-31 10:57 | CDU_ITS ---
Reason For Study: Bi lateral carotid stenosis Rt. Velocities/BP Lt. Velocities/BP Prox CCA 102.7/25.3 cm/sec. Prox CCA 83.3/17.9 cm/sec. Mid CCA 79.3/22.8 cm/sec. Mid CCA 76.0/15.7 cm/sec. Dist CCA 80.6/26.5 cm/sec. Dist CCA 65.8/20.4 cm/sec. Prox ICA 113.3/43.0 cm/sec. Prox ICA 65.8/23.2 cm/sec. Mid ICA 155.0/49.6 cm/sec. Mid ICA 68.6/29.9 cm/sec. Dist ICA 57.2/14.7 cm/sec. Dist ICA 50.7/21.1 cm/sec. Rt. ICA/CCA = 2.0. Lt. ICA/CCA = 0.9. Prox ECA 77.8/19.2 cm/sec. Prox ECA 77.1/8.1 cm/sec. Rt. Vert. 42.1/13.8 cm/sec. Lt. Vert. 60.9/19.2 cm/sec. Right Extracranial There is homogeneous, smooth atherosclerotic plaque noted in the right common carotid artery. There is heterogeneous, irregular atherosclerotic plaque noted in the right internal carotid artery. The atherosclerotic plaque causes acoustic shadowing. There is homogeneous, smooth atherosclerotic plaque noted in the right external carotid artery. Antegrade flow is noted in the right vertebral artery. Left Extracranial There is heterogeneous, smooth atherosclerotic plaque noted in the left common carotid artery. There is heterogeneous, irregular atherosclerotic plaque noted in the left internal carotid artery. The atherosclerotic plaque causes acoustic shadowing. There is intimal thickening but no significant atherosclerotic plaque noted in the left external carotid artery. Antegrade flow is noted in the left vertebral artery. Procedure Carotid Duplex [id number]. This is a Carotid Duplex examination using B-mode, color flow and specral Doppler. The exam was diagnostic. Exam performed in department. VL/Carotid Duplex Ultrasound Interpretation Summary Irregular calcific plaque with shadowing at the proximal right internal carotid artery with 50 to 69% stenosis Less than 50% stenosis right external carotid artery Irregular calcific plaque at the proximal left internal carotid artery with les s than 50% stenosis Less than 50% stenosis left external carotid artery Patent and antegrade vertebral arteries bilaterally No change from the previous examination of August 09, 2021 Ordering Physician: Mike Hays Referring Physician: Mike Hays Performed By: Joaquín Campuzano RVT
== END | disposition home or self-care (01) ==
LOC: CVS 10:56
PROVIDERS: PCP Family Medicine; Referring Provider Psychiatry & Neurology Neurology; Visit Provider Psychiatry & Neurology Neurology
DX: I65.23 Occlusion and stenosis of bilateral carotid arteries (principal)
CPT/HCPCS: 93880

== ENCOUNTER → 2022-08-20 | Outpatient (CLI) | payer MEDICARE, BC, SELFPAY ==
--- NOTE | 2022-08-20 07:52 | US_ITS ---
STUDY: ABDOMINAL ULTRASOUND - RIGHT UPPER QUADRANT REASON FOR VISIT: Female, 77 years old OVARIAN CA TECHNIQUE: Ultrasound evaluation of the right upper quadrant was performed with real-time and static mott-scale imaging. TECHNICAL QUALITY: Adequate. COMPARISON: None. FINDINGS: Liver: The liver measures 13.5 cm. There is increased echogenicity consistent with fatty infiltration. The bile ducts are within normal limits. There is hepatic color flow. The direction of portal flow is hepatopetal. There is no demonstrated mass lesion. Gallbladder: Normal distended gallbladder. The gallbladder wall measures 2.3 mm. There is a negative sonographic Del Rosario''s sign. There is no pericholecystic fluid. There are no gallstones. Common Bile Duct (C.B.D.): The common bile duct measures 7.1 mm. Pancreas: Normal size of the head, body and tail of the pancreas. There is normal echogenicity of the pancreas. There is no demonstrated pancreatic mass or cyst. Right Kidney: Normal size of the right kidney. The right kidney measures 9.7 cm x 5.6 cm x 4.2 cm. Normal renal cortex. The right cortex measures 1.1 cm. There is no demonstrated renal mass or cyst. There is no right hydronephrosis. US/Abdomen Limited IMPRESSION: Fatty infiltration of liver. Electronically Signed: Herve Alejandra MD at 14:09 EDT ,
== END | disposition home or self-care (01) ==
LOC: US 07:52
PROVIDERS: PCP Family Medicine; Referring Provider Internal Medicine Medical Oncology; Visit Provider Internal Medicine Medical Oncology
DX: C56.3 Malignant neoplasm of bilateral ovaries (principal)
CPT/HCPCS: 76705

== ENCOUNTER 2022-09-20 08:50 | Day surgery (SDC) | payer MEDICARE, BC, SELFPAY ==
[2022-09-20] MEDS: Lactated Ringers 1,000 ML 15 ML IV (09:33)
[2022-09-20 09:36] VITALS: BP 142/86; PULSE 78; RESP 18; TEMP 36; O2SAT 96; BMI 34.9
--- NOTE | 2022-09-20 10:00 | EGD_PTH ---
PATIENT: YUNG GAUTHIER LOC: EN U#:[id number] AGE/SX: 77/F ROOM: RE09/20/[address]: Dr. Isaiah Allen MD : 1945 BED: DIS: 09/20/2022 SPEC #: [id number] RECD: 09/20/22 14:19 STATUS: ANTWON PAUL #: [id number] JIN: 09/20/22 10:[address]: Isaiah Allen DEPT: SURGICAL PATHOLOGY RECD BY: Primitivo Barroso ENTERED: 09/23/22 07:08 SP TYPE: EGD BIOPSY OTHR DR: Dr. Magi Farmer MD Tissues: Gastric mucous membrane Procedures: Special Stain Group II Surgery Specimen Level IV Alcian Blue/PAS (control) HEADER OPERATION: EGD ([facility] [place]) PRE-OP DIAGNOSIS: Abnormal GI PET scan TISSUE SUBMITTED: Gastroesophageal junction biopsy MICROSCOPIC DIAGNOSIS Gastroesophageal junctional mucosa, biopsy: Mild chronic inflammation. No evidence of goblet cell metaplasia. See comment. AM:yadiel 09/24/2022 COMMENT Alcian blue/PAS stain with matched control supports the above diagnosis. MICROSCOPIC DESCRIPTION Slides are reviewed. GROSS DESCRIPTION Received in fixative is one container labeled with the patient's name and designated GE junction biopsy. The specimen consists of two irregular fragments of light taylor soft tissue that in aggregate measure 0.7 x 0.3 x 0.1 cm. The specimen is totally submitted in one cassette. / SJ:yadiel 09/23/2022 TC:3 CPT: 50872, 54779
--- NOTE | 2022-09-20 10:33 | HP.PCM_ITS ---
History and Physical Date of Admission: 09/20/22 Intake Vital Signs 09/02/2312:36 09/12/2307:14 Height 4 ft 11 in 4 ft 11 in Weight: 177 lb 4 oz BMI 35.8 BP 168/82 H Blood Pressure Location Rt brachial Position Sitting Respiration 16 Pulse 82 Pulse Source Monitor Temp Source Tympanic Intake Visit Reasons: LOWER ESOPHAGEAL ACTIVITY ON PET SCAN Chief Complaint: activity on pet scan lower esophagel Allergies aspirin Adverse Reaction (Mild, Verified 09/11/22 08:16) Otherlisinopril Adverse Reaction (Mild, Verified 09/11/22 08:16) Othercherry Adverse Reaction (Verified 09/11/22 08:16) Nausea/Vom/Diarrheaciprofloxacin Adverse Reaction (Verified 09/11/22 08:16) Vomitingmethotrexate Adverse Reaction (Verified 09/11/22 08:16) Otherrosuvastatin [From Crestor] Adverse Reaction (Verified 09/11/22 08:16) Othersimvastatin Adverse Reaction (Verified 09/11/22 08:16) Pain in joints Medications vitamins A,C,E-vufd-glzmcs 4,296 mcg-226 mg-90 mg capsule (PreserVision AREDS) 1 cap PO BID EYE HEALTH 12/29/20 [History Confirmed 09/11/22] rosuvastatin 5 mg tablet 5 mg PO SUMOWEFR CHOLESTEROL 01/01/21 [History Confirmed 09/11/22] sertraline 100 mg tablet 200 mg PO DAILY DEPRESSION 01/01/21 [History Confirmed 09/11/22] ropinirole 0.5 mg tablet 0.5 mg PO DAILY RLS 12/06/21 [History Confirmed 09/11/22] gabapentin 600 mg tablet 600 mg PO TID 01/15/22 [History Confirmed 09/11/22] triamcinolone acetonide 0.025 % topical cream 1 applic topical DAILY PRN Rash 01/15/22 [History Confirmed 09/11/22] lidocaine-prilocaine 2.5 %-2.5 % topical cream 2.5 g topical ONCE #30 grams 04/23/22 [Rx Confirmed 09/11/22] prochlorperazine maleate 5 mg tablet 5 mg PO BID PRN Nausea 04/23/22 [History Confirmed 09/11/22] docusate sodium 100 mg tablet 100 mg PO DAILY 06/19/22 [History Confirmed 09/11/22] ibuprofen 200 mg capsule 600 mg PO TID PRN Pain 06/19/22 [History Confirmed 09/11/22] losartan 25 mg tablet 12.5 mg PO DAILY PRN BLOOD PRESSURE 07/01/22 [History Confirmed 09/11/22] ondansetron 8 mg disintegrating tablet 8 mg PO Q8H PRN Nausea 07/01/22 [History Confirmed 09/11/22] aspirin 81 mg tablet,delayed release (Adult Low Dose Aspirin) 81 mg PO .COMPLEX 07/15/22 [History Confirmed 09/11/22] carvedilol 3.125 mg tablet 3.125 mg PO BID #60 tabs 08/14/22 [Rx Confirmed 09/11/22] famotidine 20 mg tablet (Pepcid AC) 20 mg PO DAILY #60 tabs 09/11/22 [Rx Confirmed 09/11/22] PFSH Medical History (Updated 09/11/22 @ 08:31 by Emily Montes De Oca) Abnormal gastrointestinal PET scan Ambulates with cane Anemia Arthritis ASD (atrial septal defect) Asthma Back pain Back pain Cancer Cardiology follow-up encounter Carotid stenosis, bilateral Cataracts, bilateral Cellulitis COVID-19 Depression Diabetes Difficulty balancing Encounter for chemotherapy management Encounter for education Essential hypertension Fibromyalgia First degree AV block GERD (gastroesophageal reflux disease) Heart disease Heartburn Herpes zoster History of diverticulitis History of echocardiogram History of ischemic stroke Hypertension Hypokalemia Infection, skin, staph Inflammatory polyarthritis Knee pain Leg cramps Limb weakness Low iron Mixed hyperlipidemia Neck pain Non-smoker Osteoarthritis Osteopenia Ovarian cancer Pancytopenia Paroxysmal ventricular tachycardia PFO (patent foramen ovale) Pneumonia RAD (reactive airway disease) Restless legs Shortness of breath on exertion Sinusitis Stroke Stroke TIA (transient ischemic attack) TIA (transient ischemic attack) Ventricular tachycardia seen on environmental monitoring technician Vision problems Walker as ambulation aid Wears dentures Wears glasses Surgical History H/O cataract removal with insertion of prosthetic lens H/O right breast biopsy H/O tubal ligation History of abdominal paracentesis Hx of breast biopsy Port-A-Cath in place Tubal ligation status Family History Mother Asthma Heart disease Depression Psychiatric care CVA (cerebral vascular accident) Thyroid disorder History of ulcer diseaseGrandfather Myocardial infarction Heart diseaseGrandmother Myocardial infarction Heart disease CVA (cerebral vascular accident)Uncle Parkinson diseaseSister CancerOther Hypertension Social History household members: family Smoking Status: Never smoker alcohol intake: never substance use type: does not use caffeine: Yes Type: carbonated beverages what type of physical activity do you participate in: none HPI HPI HPI: Patient is a 77-year-old female here with increased uptake of the distal esophagus on PET scan. She is here for EGD. She does report she has acid reflux. ROS General General: Yes fatigue; No weight change, appetite, colon cancer, breast cancer or weakness HEENT HEENT: No difficulty swallowing, eye injury, eye surgery, swollen glands or hoarseness Endo Endocrine: No thyroid disease, diabetes mellitus, thyroid cancer, Hair loss, heat intolerance or cold intolerance Skin Skin: No rash or changing moles Breast Breast: No left breast lump, right breast lump, nipple discharge, breast pain, abnormal mammogram, abnormal US or breast enlargement Musc Musculoskeletal: Yes arthritis; No back problems, rheumatoid arthritis, gout or joint pain Cardio Cardiovascular: No murmur, pacemaker, heart disease, atrial fibrillation, high blood pressure, heart attack, heart stent, palpitations, shortness of breat with exertion or chest pain Psych Psychiatric: No depression, anxiety or hearing voices Resp Respiratory: No shortness of breath, No sleep apnea, No cough, No COPD, No asthma, No emphysema and No wheezing Gastro Gastrointestinal: No abdominal pain, No nausea or vomiting, No diarrhea, No constipation, No blood in stool, No acid reflux, No hemorrhoids, No ulcers, No gallbladder problem and No black,tarry stools Jordan Hematologic: No blood thinners, No blood disorders, No bleeding, No anemia and No blood clots Neuro Neurologic: No system reviewed and no additional complaints, except as documented, No as per HPI, No abnormal gait, No abnormal hearing, No abnormal movements, No abnormal speech, No behavioral changes, No burning sensations, No confusion, No convulsions, No disequilibrium, No dizziness, No localized weakness, No frequent falls, No headache(s), No lack of coordination, No loss of vision, No memory loss, Yes numbness, No other visual disturbances, No radicular pain, No restless legs, No sensory deficit, No syncope, Yes tingling, No tremor(s), No weakness and Yes other (cva) Exam Const General: cooperative Orientation: alert and oriented x3 HENMT Head: normal to inspection Neck Neck: normal visual inspection and full ROM Chest Chest palpation & inspection: normal inspection of the chest Resp Effort & Inspection: normal respiratory effort Auscultation: clear to auscultation bilaterally Cardio Rate: regular rate Rhythm: regular rhythm GI Inspection: non-distended Palpation: soft and nontender Skin General: no rashes or lesions noted Neuro General: patient alert and patient oriented x3 Extrem General: full ROM Psych Appearance: grossly normal Mental Status: mental status grossly normal Assessment and Plan Assessment and Plan (1) Abnormal gastrointestinal PET scan: Status: Acute Plan: Patient had increased uptake on her PET scan in the distal esophagus. She has chronic reflux. I will start her on Pepcid for her reflux and perform an EGD. I explained endoscopy in detail to the patient. I explained the risks including but not limited to stroke or heart attack with anesthesia, perforation of the GI tract, bleeding, infection. I explained that any of these could necessitate further emergency surgery. The patient understands and all questions were answered sufficiently. The patient wishes to proceed with procedure. Isaiah Allen MD Pager: [facility] [address] [place] [address], [address] [place] [address] Office: I have examined the patient and the H&P has been reviewed. There are no clinical changes since date of exam.
[2022-09-20 10:57] VITALS: BP 142/86; BP 75/47; PULSE 67; RESP 16; TEMP 36; O2SAT 93
--- NOTE | 2022-09-20 10:57 | OP.EGD_ITS ---
Patient Name: Sharri Becerra Procedure Date: 09/20/2022 10:35 AM Date of : 1945 Age: 77 Procedure: Upper GI endoscopy Indications: Heartburn, Abnormal PET scan of the GI tract Providers: Isaiah Allen MD Medicines: Monitored Anesthesia Care Patient Profile: This is a 77 year old female. Refer to note in patient chart for documentation of history and physical. Complications: No immediate complications. Estimated blood loss: Minimal. Procedure: Pre-Anesthesia Assessment: - Prior to the procedure, a History and Physical was performed, and patient medications and allergies were reviewed. The patient's tolerance of previous anesthesia was also reviewed. The risks and benefits of the procedure and the sedation options and risks were discussed with the patient. All questions were answered, and informed consent was obtained. Prior Anticoagulants: The patient has taken no previous anticoagulant or antiplatelet agents. After reviewing the risks and benefits, the patient was deemed in satisfactory condition to undergo the procedure. After obtaining informed consent, the endoscope was passed under direct vision. Throughout the procedure, the patient's blood pressure, pulse, and oxygen saturations were monitored continuously. The gastroscope was introduced through the mouth, and advanced to the third part of duodenum. The upper GI endoscopy was accomplished without difficulty. The patient tolerated the procedure well. Scope In: 10:46:36 AM Scope Out: 10:49:17 AM Total Procedure Duration Time 0 hours 2 minutes 41 seconds Findings: The esophagus was normal. The stomach was normal. The examined duodenum was normal. Biopsies were taken with a cold forceps at the gastroesophageal junction for histology. Impression: - Normal esophagus. - Normal stomach. - Normal examined duodenum. - Biopsies were taken with a cold forceps for histology at the gastroesophageal junction. Recommendation: - Discharge patient to home. - Resume previous diet. - Continue present medications. - Await pathology results. Procedure Code(s): --- Professional --- 54436, Esophagogastroduodenoscopy, flexible, transoral; with biopsy, single or multiple Diagnosis Code(s): --- Professional --- R12, Heartburn R93.3, Abnormal findings on diagnostic imaging of other parts of digestive tract CPT copyright 2017 [employer]. All rights reserved. The codes documented in this report are preliminary and upon medical biller coder review may be revised to meet current compliance requirements. Isaiah Allen MD 09/20/2022 10:56:49 AM This report has been signed electronically. Number of Addenda: 0 Note Initiated On: 09/20/2022 10:35 AM
--- NOTE | 2022-09-20 10:57 | OP.CCLET_ITS ---
09/20/2022 Magi Farmer [id number] [facility] [address] [address] Re : Upper GI endoscopy procedure for Sharri Becerra Dear Dr. Farmer This procedure was performed on Tuesday, September 20, 2022. My impressions and recommendations are as follows: Impressions : - Normal esophagus. - Normal stomach. - Normal examined duodenum. - Biopsies were taken with a cold forceps for histology at the gastroesophageal junction. Recommendations : - Discharge patient to home. - Resume previous diet. - Continue present medications. - Await pathology results. My findings are described in the full procedure note, which is enclosed. If I can be of further assistance, please feel free to contact me at Doctor phone number(s): , Work: . Sincerely, Isaiah Allen MD 09/20/2022 10:56:49 AM This report has been signed electronically.
[2022-09-20 11:00] VITALS: BP 102/62; BP 142/86; PULSE 64; RESP 16; O2SAT 94
[2022-09-20 11:05] VITALS: BP 129/79; BP 142/86; PULSE 70; RESP 16; O2SAT 95
[2022-09-20 11:10] VITALS: BP 134/74; BP 142/86; PULSE 66; RESP 16; TEMP 36; O2SAT 94
[2022-09-20 11:41] VITALS: BP 142/86
== END 2022-09-20 11:47 | disposition home or self-care (01) ==
LOC: EN 08:50 → AC 08:52
PROVIDERS: PCP Family Medicine; Referring Provider Family Medicine; Visit Provider Surgery
PROC: 0DJ08ZZ Inspection of Upper Intestinal Tract, Via Natural or Artificial Opening Endoscopic (ICD-10-PCS; CPT 43235; principal; 2022-09-20 09:55)
DX: R93.3 Abnormal findings on diagnostic imaging of other parts of digestive tract (principal); E11.9 Type 2 diabetes mellitus without complications; K21.9 Gastro-esophageal reflux disease without esophagitis; I10 Essential (primary) hypertension; E78.2 Mixed hyperlipidemia; R12 Heartburn; Z86.73 Personal history of transient ischemic attack (TIA), and cerebral infarction without residual deficits
CPT/HCPCS: 43239; 88305; 88313; J7120; J2405

== ENCOUNTER 2022-09-21 21:11 | Emergency (ER) | payer MEDICARE, BC, SELFPAY ==
[2022-09-21 21:14] VITALS: BP 185/109; PULSE 95; RESP 16; TEMP 36; O2SAT 98; BMI 34.8
[2022-09-21 21:27] VITALS: BP 176/100; PULSE 91; RESP 18; O2SAT 95
--- NOTE | 2022-09-21 21:36 | ED.VIS.GI ---
HPI <Dr. Urbano Woods MD - Last Filed: 09/22/22 14:34> HPI - GI History of Present Illness Chief Complaint: Constipation Informant: patient Narrative Narrative: Presents with constipation. Patient states she has had problems with this in the past. She has also had diverticulitis and this might feel a bit like it. But she is not certain. She has never had surgery for that. But she just started a medicine called Zejula as maintenance therapy for ovarian cancer. She started it 2 weeks ago. She had progressively decreased bowel movements and then has only had small amounts since Friday. She gets abdominal cramping but no real pain. She is not nauseated but she states her appetite is just a little bit down. She states she never drinks enough water. That is not new or different. She also had an endoscopy yesterday. But states she was having symptoms before that and her symptoms have not changed since. The reason they did the endoscopy is her recent PET scan showed clear of ovarian cancer except a questionable spot in the distal esophagus. She was told that they think this was just reflux causing an inflammatory response making the PET scan positive. She is urinating normally. No fevers or chills. The only surgery she has had in her abdomen was complete hysterectomy about 2 or so years ago when she was diagnosed with ovarian cancer originally. She states she was told that the Zejula she is starting can cause constipation. But no stool softeners were started with it. She tried a Dulcolax at home. She also tried castor oil. She tried an [id number] enema today but does not think it really was done correctly. [facility] <Dr. Urbano Woods MD - Last Filed: 09/22/22 14:34> [facility] Medical History Anemia Asthma Back pain Cancer Carotid stenosis, bilateral Cataracts, bilateral Cellulitis Depression Diabetes Difficulty balancing Easy bruising Essential hypertension Fatty liver Fibromyalgia First degree AV block GERD (gastroesophageal reflux disease) Heart disease Herpes zoster High cholesterol History of diverticulitis History of ischemic stroke Hypertension Hypokalemia Inflammatory polyarthritis Leg cramps Low iron Mixed hyperlipidemia Non-smoker Osteopenia Ovarian cancer Pancytopenia Paroxysmal ventricular tachycardia PFO (patent foramen ovale) Restless legs Shortness of breath on exertion TIA (transient ischemic attack) Ventricular tachycardia seen on groundwater monitoring technician Walker as ambulation aid Wears dentures Home Medications rosuvastatin 5 mg tablet 5 mg PO SUMOWEFR CHOLESTEROL 01/01/21 [History Last Taken 12/05/21] sertraline 100 mg tablet 200 mg PO DAILY DEPRESSION 01/01/21 [History Last Taken 09/20/22] ropinirole 0.5 mg tablet 0.5 mg PO QHS RLS 12/06/21 [History Last Taken 12/05/21] gabapentin 600 mg tablet 600 mg PO BID 01/15/22 [History Last Taken 09/20/22] triamcinolone acetonide 0.025 % topical cream 1 applic topical DAILY PRN Rash 01/15/22 [History Last Taken Unknown] lidocaine-prilocaine 2.5 %-2.5 % topical cream 2.5 g topical ONCE #30 grams 04/23/22 [Rx Last Taken Unknown] prochlorperazine maleate 5 mg tablet 5 mg PO BID PRN Nausea 04/23/22 [History Last Taken Unknown] docusate sodium 100 mg tablet 100 mg PO DAILY 06/19/22 [History Last Taken Unknown] ibuprofen 200 mg capsule 600 mg PO TID PRN Pain 06/19/22 [History Last Taken Unknown] losartan 25 mg tablet 12.5 mg PO DAILY BLOOD PRESSURE 07/01/22 [History Last Taken 09/20/22] carvedilol 3.125 mg tablet 3.125 mg PO BID #60 tabs 08/14/22 [Rx Last Taken 09/20/22] famotidine 20 mg tablet (Pepcid AC) 20 mg PO DAILY #60 tabs 09/11/22 [Rx Last Taken Unknown] ondansetron 8 mg disintegrating tablet 8 mg PO Q8H PRN Nausea #30 tabs 09/16/22 [Rx Last Taken Unknown] niraparib 200 mg tablet (Zejula) 200 mg PO QHS 09/19/22 [History Last Taken Unknown] Allergy/AdvReac Type Severity Reaction Status Date / Time aspirin AdvReac Mild Other Verified 09/21/22 21:14 lisinopril AdvReac Mild Other Verified 09/21/22 21:14 waldrop AdvReac Nausea/Vom/ Verified 09/21/22 21:14 Diarrhea ciprofloxacin AdvReac Vomiting Verified 09/21/22 21:14 methotrexate AdvReac Other Verified 09/21/22 21:14 rosuvastatin [From Crestor] AdvReac Other Verified 09/21/22 21:14 simvastatin AdvReac Pain in Verified 09/21/22 21:14 joints Family History Mother Asthma Heart disease Depression Psychiatric care CVA (cerebral vascular accident) Thyroid disorder History of ulcer disease Grandfather Myocardial infarction Heart disease Grandmother Myocardial infarction Heart disease CVA (cerebral vascular accident) Uncle Parkinson disease Sister Cancer Other Hypertension Surgical History H/O right breast biopsy H/O tubal ligation History of abdominal paracentesis Hx of breast biopsy Hx of hysterectomy Port-A-Cath in place Tubal ligation status Social History household members: family Smoking Status: Never smoker alcohol intake: never substance use type: does not use caffeine: Yes Type: carbonated beverages what type of physical activity do you participate in: none ROS <Dr. Urbano Woods MD - Last Filed: 09/22/22 14:34> ROS ED ROS Narrative A complete review of systems was performed and is negative except as documented in the history of present illness. Some specific details below. Constitutional: No recent fevers or chills. No malaise. ENT: No difficulty swallowing. No swelling. No pain. No GERD symptoms. CV: No chest pain or palpitations. Respiratory: No dyspnea. No hemoptysis. No difficulty taking breaths. GI: Please see history of present illness. : No frequency dysuria or hematuria. Musculoskeletal: No recent trauma. No pains. Skin: No rash. Nondiaphoretic. Neuro: No weakness or numbness. Endocrine: No polyuria or polydipsia. EXAM <Dr. Urbano Woods MD - Last Filed: 09/22/22 14:34> Physical Exam Narrative Exam Narrative: CONSTITUTIONAL: Patient is nontoxic in appearance. The patient looks comfortable. HEENT: No notable trauma. Mucous membranes do look quite dry. Patient admits that her mouth feels dry and she knows she needs to drink more fluids. No sinus tenderness. No indication of pain with swallowing. EYES: No conjunctival injection. No icterus. CARDIOVASCULAR: Regular rate. Regular rhythm. No notable murmur. No JVD. RESPIRATORY: No respiratory distress. Breathing is unlabored. No wheezes. No rhonchi. No rales. No pain with a deep breath. GASTROINTESTINAL: Not distended. Bowel sounds are normal. No tenderness. No guarding. No rebound. No palpable mass. No bruit. Overall her abdomen is actually quite benign. Is not distended at all. GENITOURINARY: No tenderness over the bladder. No CVA tenderness. MUSCULOSKELETAL: Atraumatic. NEUROLOGICAL: Patient is alert and appropriate. No focal deficit noted. SKIN: No noted rashes. No diaphoresis. PSYCHIATRIC: Patient is calm. Mood is appropriate. Const Vital Signs: 09/21/22 21:14 09/21/22 21:27 09/22/22 00:28 Temperature 96.8 F L 98.1 F Temperature Source Temporal Oral Pulse Rate 95 91 97 Respiratory Rate 16 18 18 Blood Pressure 185/109 H 176/100 H 191/105 H Blood Pressure Mean 134 125 133 Pulse Ox 98 95 96 Oxygen Delivery Method Room Air Room Air 09/22/22 04:43 Temperature Temperature Source Pulse Rate 81 Respiratory Rate 18 Blood Pressure 152/74 H Blood Pressure Mean 100 Pulse Ox 98 Oxygen Delivery Method <Dr. Lance Grimm DO - Last Filed: 09/22/22 04:03> Physical Exam Const Vital Signs: 09/21/22 21:14 09/21/22 21:27 09/22/22 00:28 Temperature 96.8 F L 98.1 F Temperature Source Temporal Oral Pulse Rate 95 91 97 Respiratory Rate 16 18 18 Blood Pressure 185/109 H 176/100 H 191/105 H Blood Pressure Mean 134 125 133 Pulse Ox 98 95 96 Oxygen Delivery Method Room Air Room Air 09/22/22 04:43 Temperature Temperature Source Pulse Rate 81 Respiratory Rate 18 Blood Pressure 152/74 H Blood Pressure Mean 100 Pulse Ox 98 Oxygen Delivery Method [facility] <Dr. Urbano Woods MD - Last Filed: 09/22/22 14:34> [facility] Narrative Medical decision making narrative: Depend interpretation of her plain film abdominal x-rays was concerning for obstruction. For this reason CT scan was ordered. Final reading of plain film was similar. Patient CBC showed slightly low hemoglobin at baseline. Her platelets are little bit lower than they have been in the past. She does have a history of thrombocytopenia and pancytopenia. She is supposed to be taking Live. She has had known low platelets. She is still getting IV chemo every [address] Smyth and has had problems with low platelets due to the chemo. If electrolytes showed no marked abnormalities. Urinalysis shows shows no acute process. My independent interpretation the patient's CT of the abdomen shows to be dilated colon but no loss of haustra. There is a narrowed area in the sigmoid region down. There is some stranding near this. I see no free air. Final reading by radiology shows: Abdomen/Pelvis CT 09/21/22 22:27 IMPRESSION: 1. Irregular thickening of the mid to distal sigmoid colon with adjacent fat stranding. Findings most likely represent diverticulitis, however follow-up is recommended to exclude an infiltrative neoplastic process. 2. Dilated colon with air-fluid levels proximal to the thickened and narrowed sigmoid colon may represent early large bowel obstruction. No evidence of small bowel obstruction. I discussed the case with the hospitalist. I do not think this is a patient who should go home. We will start antibiotics. We were going to give her magnesium citrate initially, but after seeing her x-ray we held that. Patient looks very comfortable. But I do not think she will do well at home with the amount of dilation of the colon and the narrowing that may seem to be contributing to this. Certainly she has chronic constipation issues. She is supposed to be taking a fiber or stool supplement but she just forgets to do this all the time and does not take it. She also has a history of diverticulitis. We will treat the diverticulitis. I will also talk to surgery to see if they have recommendations for treatment of the constipation. If they think we should add lactulose or GoLytely or hold off on it due to her CT findings. Discussed the case with surgery. Because of her ovarian cancer and likely significant adhesions he felt that this is not the best facility for her. Plan will be to try to transfer her to [facility]. It sounds like [facility] and [facility] are closed to all traffic that is not trauma STEMI or stroke. [facility] is about a 3-day delay. We have initiated calls to [facility] and turned the patient over the oncoming physician. Lab Data Attestation: I reviewed the patient's lab results. Labs: Laboratory Results - last 24 hr 09/21/22 09/21/22 21:48 23:10 WBC 5.0 RBC 2.93 L Hgb 9.9 L Hct 31.1 L MCV 106.1 H MCH 33.8 H MCHC 31.8 L RDW Std Deviation 74.0 H RDW Coeff of Glenn 19.2 H Plt Count 34 L* MPV 11.7 Immature Gran % (Auto) 0.600 Neut % (Auto) 66.9 Lymph % (Auto) 24.3 [place] % (Auto) 7.2 Eos % (Auto) 0.6 Baso % (Auto) 0.4 Absolute Neuts (auto) 3.3 Absolute Lymphs (auto) 1.21 Nucleated RBC % 0 Differential Comment Diff Path Review May foll Sodium 138 Potassium 3.6 Chloride 106 Carbon Dioxide 24.0 Anion Gap 8 BUN 18 Creatinine 1.01 Estim Creat Clear Calc 56.74 Est GFR (MDRD) Af Amer 68 Est GFR (MDRD) Non-Af 56 L BUN/Creatinine Ratio 17.8 Glucose 105 Calcium 8.9 Phosphorus 3.8 Magnesium 1.6 Urine Color Yellow Urine Clarity Clear Urine pH 5.0 Ur Specific Girdler 1.010 Urine Protein 15 H Urine Glucose (UA) Normal Urine Ketones Negative Urine Occult Blood 10 H Urine Nitrite Negative Urine Bilirubin Negative Urine Urobilinogen Normal Ur Leukocyte Esterase 100 H Urine RBC 0 SEEN Urine WBC 0-5 SEEN Ur Squamous Epith Cells 0 SEEN Urine Bacteria 0 SEEN Urine Mucus 0 SEEN Radiography Diagnostic Testing: Clinical Impression(s) from Imaging Studies Acute Abdomen Series 09/21/22 22:20 IMPRESSION: Dilated loops of bowel with air-fluid levels concerning for small bowel obstruction. Electronically Signed: Manny Condon DO at 22:45 EDT , Abdomen/Pelvis CT 09/21/22 22:27 IMPRESSION: 1. Irregular thickening of the mid to distal sigmoid colon with adjacent fat stranding. Findings most likely represent diverticulitis, however follow-up is recommended to exclude an infiltrative neoplastic process. 2. Dilated colon with air-fluid levels proximal to the thickened and narrowed sigmoid colon may represent early large bowel obstruction. No evidence of small bowel obstruction. Electronically Signed: Manny Condon DO at 23:15 EDT , <Dr. Lance Grimm, DO - Last Filed: 09/22/22 04:03> [facility] Lab Data Labs: Laboratory Results - last 24 hr 09/21/22 09/21/22 21:48 23:10 WBC 5.0 RBC 2.93 L Hgb 9.9 L Hct 31.1 L MCV 106.1 H MCH 33.8 H MCHC 31.8 L RDW Std Deviation 74.0 H RDW Coeff of Glenn 19.2 H Plt Count 34 L* MPV 11.7 Immature Gran % (Auto) 0.600 Neut % (Auto) 66.9 Lymph % (Auto) 24.3 [place] % (Auto) 7.2 Eos % (Auto) 0.6 Baso % (Auto) 0.4 Absolute Neuts (auto) 3.3 Absolute Lymphs (auto) 1.21 Nucleated RBC % 0 Differential Comment Diff Path Review May foll Sodium 138 Potassium 3.6 Chloride 106 Carbon Dioxide 24.0 Anion Gap 8 BUN 18 Creatinine 1.01 Estim Creat Clear Calc 56.74 Est GFR (MDRD) Af Amer 68 Est GFR (MDRD) Non-Af 56 L BUN/Creatinine Ratio 17.8 Glucose 105 Calcium 8.9 Phosphorus 3.8 Magnesium 1.6 Urine Color Yellow Urine Clarity Clear Urine pH 5.0 Ur Specific Girdler 1.010 Urine Protein 15 H Urine Glucose (UA) Normal Urine Ketones Negative Urine Occult Blood 10 H Urine Nitrite Negative Urine Bilirubin Negative Urine Urobilinogen Normal Ur Leukocyte Esterase 100 H Urine RBC 0 SEEN Urine WBC 0-5 SEEN Ur Squamous Epith Cells 0 SEEN Urine Bacteria 0 SEEN Urine Mucus 0 SEEN Radiography Diagnostic Testing: Clinical Impression(s) from Imaging Studies Acute Abdomen Series 09/21/22 22:20 IMPRESSION: Dilated loops of bowel with air-fluid levels concerning for small bowel obstruction. Electronically Signed: Mannystacey Condon DO at 22:45 EDT , Abdomen/Pelvis CT 09/21/22 22:27 IMPRESSION: 1. Irregular thickening of the mid to distal sigmoid colon with adjacent fat stranding. Findings most likely represent diverticulitis, however follow-up is recommended to exclude an infiltrative neoplastic process. 2. Dilated colon with air-fluid levels proximal to the thickened and narrowed sigmoid colon may represent early large bowel obstruction. No evidence of small bowel obstruction. Electronically Signed: Manny Condon DO at 23:15 EDT , Treatment and Re-Evaluation :: Patient was signed out to me by Dr. Fisher at 12:30 AM No acute events under my care. I discussed the case with [facility]. [facility] excepted the patient for ED to ED transfer under Dr. Guerrero. Discharge Plan Dx/Rx/DC Orders Clinical Impression: Diverticulitis, Thrombocytopenia, History of ovarian cancer, Constipation Disposition Disposition: Acute Care Hospital [facility] Discharge Date/Time: 09/22/22 04:51
--- NOTE | 2022-09-21 21:53 | ED.RN ---
PER DR. HERRERA VERBAL ORDER, PT NOT NPO, OKAY TO HAVE PO MEDICATION ORDERED.
[2022-09-21] MEDS: 0.9% Normal Saline 1,000 ML 1000 ML IV (21:54)
[2022-09-21] MEDS: Magnesium Citrate 300 ML PO (21:55)
[2022-09-21 22:05] LABS: Absolute Lymphocyte Count 1.21 X10^3/uL (0.83-4.51); Absolute Neutrophil Count 3.3 X10^3/uL (2.0-7.7); Basophil# 0.02 X10^3/uL; Basophil% 0.4 % (0-1); Eosinophil# 0.03 X10^3/uL; Eosinophils% 0.6 % (0-5); Hematocrit 31.1 % (37-47); Hemoglobin 9.9 g/dL (12.0-15.0); Lymphocyte # 1.21 X10^3/ul (0.83-4.51); Lymphocyte % 24.3 % (19-41); Mean Corp Hgb Conc 31.8 g/dL (32-36); Mean Corpuscular Hgb 33.8 pg (27.0-32.0); Mean Corpuscular Volume 106.1 fL (81-99); Mean Platelet Vol. 11.7 fl (6.2-12.0); Monocyte# 0.36 X10^3/uL; Monocyte% 7.2 % (0-10); NRBC Flagged by Analyzer 0 % (0-5); Neutrophil # 3.32 X10^3/uL (2.7-7.7); Neutrophil % 66.9 % (47-70); POSITIVE COUNT YES; POSITIVE MORPHOLOGY YES; RBC Distribution Width CV 19.2 % (11.6-14.6); Red Blood Count 2.93 M/mm3 (4.2-5.4)
[2022-09-21 22:17] LABS: Anion Gap 8 (5-15); BUN 18 mg/dL (7-18); BUN/Creat Ratio 17.8 RATIO (10-20); Calcium,Total 8.9 mg/dL (8.5-10.1); Chloride 106 mmol/L (98-107); Creatinine, Serum 1.01 mg/dL (0.55-1.02); EST Glomerular Filtration Rate 56 mL/min (>60); Est Glom Filt Rate - Afr Amer 68 mL/min (>60); Estimated Creatinine Clearance 56.74 ml/min; Glucose 105 mg/dL (74-106); Potassium 3.6 mmol/L (3.5-5.1); Sodium Level 138 mmol/L (136-145)
--- NOTE | 2022-09-21 22:20 | RAD_ITS ---
INDICATION: Pain EXAMINATION/TECHNIQUE: X-RAY - XR Abdomen Series W/ Chest 1 View COMPARISON: None. FINDINGS: --Chest: LINES/DEVICES: Right chest port with catheter tip at superior vena cava. LUNGS: No consolidation or evidence of an effusion. No evidence of edema or a pneumothorax. MEDIASTINUM AND CARDIOVASCULAR STRUCTURES: Cardiac silhouette is normal in size and contour. Mediastinum is unremarkable. BONES AND SOFT TISSUES: No acute abnormality. --Abdomen: BOWEL GAS PATTERN: Dilated loops of bowel with air-fluid levels, possibly representing small bowel measuring up to 3.8 cm in diameter. FREE AIR: No evidence of free air. CALCIFICATIONS: No evidence of a urinary tract stone. BONES AND SOFT TISSUES: No acute abnormality. RAD/Acute Abdomen Inc Chest IMPRESSION: Dilated loops of bowel with air-fluid levels concerning for small bowel obstruction. Electronically Signed: Manny Condon DO at 22:45 EDT ,
--- NOTE | 2022-09-21 22:27 | CT_ITS ---
INDICATION: Pain distention EXAMINATION: CT ABDOMEN AND PELVIS WITH CONTRAST - CT Abdomen And Pelvis W/ Contrast Injection TECHNIQUE: Helically acquired images were obtained of the abdomen and pelvis with sagittal and coronal reconstructed images. Individualized dose optimization techniques were used for this CT. IV contrast dosage and agent: 100 mL of [id number]-[id number]. Oral contrast: None. COMPARISON: 02/26/2022 CT. FINDINGS: VESSELS: No abdominal aortic aneurysm or dissection. LIVER: No evidence of a mass. No intrahepatic or extrahepatic biliary duct dilation. GALLBLADDER: No calcified stones. No evidence of cholecystitis. PANCREAS: No focal solid or cystic mass. No evidence of pancreatitis. SPLEEN: Normal. ADRENAL GLANDS: Normal. KIDNEYS AND URETERS: No urinary tract stone. No hydronephrosis or hydroureter. No significant asymmetric perinephric stranding. URINARY BLADDER: Unremarkable. BOWEL: Irregular thickening of the mid to distal sigmoid colon with adjacent fat stranding. Colonic diverticula are present. Appendix appears normal. No evidence of small bowel obstruction. Dilated colon proximal to the thickened and narrowed segment of sigmoid colon with air-fluid levels and a moderate amount of stool within descending colon measuring 4.8 cm in diameter and the proximal ascending colon measuring 8.3 cm in diameter. No evidence of perforation or abscess formation. REPRODUCTIVE ORGANS: No evidence of a pelvic mass. PERITONEUM: No intraabdominal free fluid or free air. LYMPH NODES: No pathologically enlarged mesenteric or retroperitoneal lymph nodes. ABDOMINAL WALL: Small fat-containing ventral hernia, superior to the umbilicus. BONES: No acute abnormality. LOWER CHEST: Small hiatal hernia. CT/Abdomen/Pelvis W IV Cont ONLY IMPRESSION: 1. Irregular thickening of the mid to distal sigmoid colon with adjacent fat stranding. Findings most likely represent diverticulitis, however follow-up is recommended to exclude an infiltrative neoplastic process. 2. Dilated colon with air-fluid levels proximal to the thickened and narrowed sigmoid colon may represent early large bowel obstruction. No evidence of small bowel obstruction. Electronically Signed: Manny Condon DO at 23:15 EDT ,
[2022-09-21 22:31] LABS: Differential Indicated SCAN CRITERIA MET; Platelet Count 34 K/mm3 (150-450)
[2022-09-21 23:19] LABS: Bacteria 0 SEEN /hpf (None Seen); Mucous, Urine 0 SEEN /hpf (<or=2+); Red Blood Cells-Urine 0 SEEN /hpf (0-5); Squamous Epithelial Cells - UA 0 SEEN /hpf (5-10)
[2022-09-21 23:30] LABS: Color, Urine Yellow (Yellow); Glucose, Dipstick Normal (Normal); Ketone-Dipstick Negative (Negative); Leukocyte Esterase-Dipstick 100 /ul (Negative); Nitrite-Dipstick Negative (Negative); Occult Blood-Urine 10 /ul (Negative); Protein-Dipstick 15 mg/dl (Negative); Urine Bilirubin Dipstick Negative (Negative); Urine Clarity Clear (Clear); Urine Urobilinogen Normal (Normal)
[2022-09-21 23:48] LABS: White Blood Cells 0-5 SEEN /hpf (0-5)
--- NOTE | 2022-09-21 23:56 | PCM.HP.STD ---
HPI - General General Date of Admission: 09/21/22 Date of Service: 09/21/22 Chief Complaint: Constipation, abdominal cramping, decreased appetite. HPI Narrative The patient is a 77 y/o F w/ PMHx: Asthma, HTN, HLD, Hx CVA, GERD, Diabetes mellitus type II, Depression and Anxiety, RLS, ovarian cancer with associated chronic anemia and chronic thrombocytopenia following with Paula James who presents to the [facility] ED on 09/21/22 with history of generalized abdominal discomfort as well as onset of constipation starting approximately 2 weeks prior to current presentation following initiation of Zejula maintenance therapy for ovarian cancer with progressively decreasing bowel movements with her last a small amount on Friday with since then abdominal cramping as well as loss of appetite but no specific nausea or emesis and unfortunately poor oral water intake as well with no fevers or chills but given ongoing abdominal discomfort and lack of bowel movement as well as lack of flatus for at least the last 48 hours prompted eventual ED evaluation. Patient does not feel as though she has had aggressive distention of note. Work-up in the ED included T96.8, heart rate 95, BP 185/109, respiratory rate 16, 98% on room air, CBC with WBC 5.0, hemoglobin 9.9, MCV 106.1, platelet 34 without marked shift, BMP not marked appearing, urinalysis unremarkable, acute abdominal with dilated loops of bowel with air-fluid levels concerning for a bowel obstruction, follow-up CT abdomen and pelvis with IV contrast with irregular thickening of the mid to distal sigmoid colon with adjacent fat stranding possibly off premise service representative diverticulitis however certainly could be an infiltrative neoplastic process, dilated colon with air-fluid levels proximal to the thickened and narrowed sigmoid colon possibly representing an early large bowel obstruction with no evidence of any small bowel obstruction. In the ED patient administered 1 L normal saline, IV Zosyn 4.5 g IV x1. Discussed case with ED physician and given complicated history just to be cautious general surgeon, Dr. Tiffany modi and awaiting callback for review of case. [facility] Medical History Anemia Asthma Back pain Cancer Carotid stenosis, bilateral Cataracts, bilateral Cellulitis Depression Diabetes Difficulty balancing Easy bruising Essential hypertension Fatty liver Fibromyalgia First degree AV block GERD (gastroesophageal reflux disease) Heart disease Herpes zoster High cholesterol History of diverticulitis History of ischemic stroke Hypertension Hypokalemia Inflammatory polyarthritis Leg cramps Low iron Mixed hyperlipidemia Non-smoker Osteopenia Ovarian cancer Pancytopenia Paroxysmal ventricular tachycardia PFO (patent foramen ovale) Restless legs Shortness of breath on exertion TIA (transient ischemic attack) Ventricular tachycardia seen on quality assurance monitor chassis Walker as ambulation aid Wears dentures Home Medications rosuvastatin 5 mg tablet 5 mg PO SUMOWEFR CHOLESTEROL 01/01/21 [History Last Taken 12/05/21] sertraline 100 mg tablet 200 mg PO DAILY DEPRESSION 01/01/21 [History Last Taken 09/20/22] ropinirole 0.5 mg tablet 0.5 mg PO QHS RLS 12/06/21 [History Last Taken 12/05/21] gabapentin 600 mg tablet 600 mg PO BID 01/15/22 [History Last Taken 09/20/22] triamcinolone acetonide 0.025 % topical cream 1 applic topical DAILY PRN Rash 01/15/22 [History Last Taken Unknown] lidocaine-prilocaine 2.5 %-2.5 % topical cream 2.5 g topical ONCE #30 grams 04/23/22 [Rx Last Taken Unknown] prochlorperazine maleate 5 mg tablet 5 mg PO BID PRN Nausea 04/23/22 [History Last Taken Unknown] docusate sodium 100 mg tablet 100 mg PO DAILY 06/19/22 [History Last Taken Unknown] ibuprofen 200 mg capsule 600 mg PO TID PRN Pain 06/19/22 [History Last Taken Unknown] losartan 25 mg tablet 12.5 mg PO DAILY BLOOD PRESSURE 07/01/22 [History Last Taken 09/20/22] carvedilol 3.125 mg tablet 3.125 mg PO BID #60 tabs 08/14/22 [Rx Last Taken 09/20/22] famotidine 20 mg tablet (Pepcid AC) 20 mg PO DAILY #60 tabs 09/11/22 [Rx Last Taken Unknown] ondansetron 8 mg disintegrating tablet 8 mg PO Q8H PRN Nausea #30 tabs 09/16/22 [Rx Last Taken Unknown] niraparib 200 mg tablet (Zejula) 200 mg PO QHS 09/19/22 [History Last Taken Unknown] Allergy/AdvReac Type Severity Reaction Status Date / Time aspirin AdvReac Mild Other Verified 09/21/22 21:14 lisinopril AdvReac Mild Other Verified 09/21/22 21:14 waldrop AdvReac Nausea/Vom/ Verified 09/21/22 21:14 Diarrhea ciprofloxacin AdvReac Vomiting Verified 09/21/22 21:14 methotrexate AdvReac Other Verified 09/21/22 21:14 rosuvastatin [From Crestor] AdvReac Other Verified 09/21/22 21:14 simvastatin AdvReac Pain in Verified 09/21/22 21:14 joints Family History Mother Asthma Heart disease Depression Psychiatric care CVA (cerebral vascular accident) Thyroid disorder History of ulcer disease Grandfather Myocardial infarction Heart disease Grandmother Myocardial infarction Heart disease CVA (cerebral vascular accident) Uncle Parkinson disease Sister Cancer Other Hypertension Surgical History H/O right breast biopsy H/O tubal ligation History of abdominal paracentesis Hx of breast biopsy Hx of hysterectomy Port-A-Cath in place Tubal ligation status Social History household members: family Smoking Status: Never smoker alcohol intake: never substance use type: does not use caffeine: Yes Type: carbonated beverages what type of physical activity do you participate in: none ROS ROS Narrative Admission Review of Systems: CONSTITUTIONAL: No weight loss, fever, chills, + weakness or fatigue. HEENT: Eyes: No visual loss, blurred vision, double vision or yellow sclerae. Ears, Nose, Throat: No hearing loss, sneezing, congestion, runny nose or sore throat. SKIN: No rash or itching, lesions, wounds. CARDIOVASCULAR: No chest pain, chest pressure or chest discomfort, palpitations, edema, orthopnea, syncopal events. RESPIRATORY: No shortness of breath, cough or sputum, wheezing, hemoptysis. GASTROINTESTINAL: + anorexia, constipation, abdominal pain. No nausea, vomiting, diarrhea, melena, BRBPR. GENITOURINARY: No dysuria, frequency, urgency or retention. NEUROLOGICAL: No headache, dizziness, syncope, paralysis, ataxia, numbness or tingling in the extremities, focal weakness, change in bowel or bladder control, seizure. MUSCULOSKELETAL: + muscle, back pain, joint pain or stiffness. HEMATOLOGIC: + anemia, bleeding or bruising. LYMPHATICS: No enlarged nodes. No history of splenectomy. PSYCHIATRIC: + history of depression or anxiety. ENDOCRINOLOGIC: No reports of sweating, cold or heat intolerance. No polyuria or polydipsia. ALLERGIES: No history of asthma, hives, eczema or rhinitis. Vital Signs Vital Signs Vital Signs: 09/21/22 21:14 09/21/22 21:27 Temperature 96.8 F L Temperature Source Temporal Pulse Rate 95 91 Respiratory Rate 16 18 Blood Pressure 185/109 H 176/100 H Blood Pressure Mean 134 125 Pulse Ox 98 95 Oxygen Delivery Method Room Air Weight Weight: 172 lb 9.6 oz Body Mass Index (BMI) 34.8 Physical Exam Narrative Physical Examination: General: Awake, alert, oriented x 3 and cooperative, seated upright in the ED bed in no apparent distress, notes still generalized cramping abdominal discomfort but no severe pain, fatigued appearing. Skin: Normal color, normal turgor, no icterus, no cyanosis except for occasional staged ecchymoses. HEENT: AT/NC, EOMI, PERRLA, dry MM, no carotid bruits or JVD noted. Lungs: Diminished, greater bases, appropriate effort, no rales, ronchi or wheezing. Heart: Currently regular rate and rhythm; no gallop, rub audible. Abdomen: Soft, obese, no severe tenderness with palpation or any rebound or guarding, no marked distention, more high-pitched sounds to the upper meek and very absent in the lower meek, no appreciated HSM. Extremities: No cyanosis, no clubbing, mild ankle nonpitting edema. Neurological: Patient awake, alert, oriented as noted, cognitive function intact; pupils equally reactive to light and accommodation, cranial nerves II-XII grossly normal, moving all 4 extremities, no focal deficits, strength moderately globally decreased secondary to acute presentation complaints. Psychiatric: Affect appears fatigued otherwise normal, no acute evidence of depressive or anxiety feelings. Results Lab / Micro Data 09/21/22 21:48 09/21/22 21:48 Labs: Laboratory Results - last 24 hr 09/21/22 21:48: WBC 5.0, RBC 2.93 L, Hgb 9.9 L, Hct 31.1 L, MCV 106.1 H, MCH 33.8 H, MCHC 31.8 L, RDW Std Deviation 74.0 H, RDW Coeff of Glenn 19.2 H, Plt Count 34 L*, MPV 11.7, Immature Gran % (Auto) 0.600, Neut % (Auto) 66.9, Lymph % (Auto) 24.3, Payette % (Auto) 7.2, Eos % (Auto) 0.6, Baso % (Auto) 0.4, Absolute Neuts (auto) 3.3, Absolute Lymphs (auto) 1.21, Nucleated RBC % 0, Differential Comment , Diff Path Review July, Sodium 138, Potassium 3.6, Chloride 106, Carbon Dioxide 24.0, Anion Gap 8, BUN 18, Creatinine 1.01, Estim Creat Clear Calc 56.74, Est GFR (MDRD) Af Amer 68, Est GFR (MDRD) Non-Af 56 L, BUN/Creatinine Ratio 17.8, Glucose 105, Calcium 8.9 09/21/22 23:10: Urine Color Yellow, Urine Clarity Clear, Urine pH 5.0, Ur Specific Oakley 1.010, Urine Protein 15 H, Urine Glucose (UA) Normal, Urine Ketones Negative, Urine Occult Blood 10 H, Urine Nitrite Negative, Urine Bilirubin Negative, Urine Urobilinogen Normal, Ur Leukocyte Esterase 100 H, Urine RBC 0 SEEN, Urine WBC 0-5 SEEN, Ur Squamous Epith Cells 0 SEEN, Urine Bacteria 0 SEEN, Urine Mucus 0 SEEN Radiology Impression Acute Abdomen Series 09/21/22 22:20 IMPRESSION: Dilated loops of bowel with air-fluid levels concerning for small bowel obstruction. Electronically Signed: Manny Condon DO at 22:45 EDT , Abdomen/Pelvis CT 09/21/22 22:27 IMPRESSION: 1. Irregular thickening of the mid to distal sigmoid colon with adjacent fat stranding. Findings most likely represent diverticulitis, however follow-up is recommended to exclude an infiltrative neoplastic process. 2. Dilated colon with air-fluid levels proximal to the thickened and narrowed sigmoid colon may represent early large bowel obstruction. No evidence of small bowel obstruction. Electronically Signed: Manny Condon DO at 23:15 EDT , Assessment & Plan Assessment/Plan (1) Diverticulitis: PLAN: Plan The patient is a 77 y/o F w/ PMHx: Asthma, HTN, HLD, Hx CVA, GERD, Diabetes mellitus type II, Depression and Anxiety, RLS, ovarian cancer with associated chronic anemia and chronic thrombocytopenia following with Dr. Smyth, Obesity who presents to the [facility] ED on 09/21/22 with history of generalized abdominal discomfort as well as onset of constipation starting approximately 2 weeks prior to current presentation following initiation of Zejula maintenance therapy for ovarian cancer with progressively decreasing bowel movements with her last a small amount on Friday with since then abdominal cramping as well as loss of appetite but no specific nausea or emesis and unfortunately poor oral water intake as well with no fevers or chills but given ongoing abdominal discomfort and lack of bowel movement as well as lack of flatus for at least the last 48 hours. #1. Possible Early Large Bowel Obstruction, concurrently possible Early Acute Diverticulitis: Will admit to medical surgical floor, maintain on aggressive hydration, monitor I&Os, maintain NPO status w/ bowel rest, maintain on IV zosyn regimen, IV PPI, anti-emetics, pain regimen PRN. We will hold on any aggressive bowel regimen given concern for possible obstructive pattern and also infectious possible etiology with underlying significant cancer history and intra abdominal caking with omental involvement until discussed case with general surgery as patient may need alternate care pathway. Dr. Allen consulted, awaiting callback. #2. Ovarian cancer: Patient with bilateral ovarian masses with ascites as well as omental caking with diagnosis of ovarian cancer clinically stage IIIc status post cisplatin and Gemzar with Avastin analog as a second line therapy with noted complete response based on 08/13/2022 PET scan which demonstrated increased uptake only in the distal esophageal region with then transition to maintenance therapy including Zejula which was only recently started with recent also 09/20/[address] Allen for GE junction biopsy with pathology currently pending. We will obtain magnesium and phosphorus levels with supplementation as needed. #3. Acute on chronic thrombocytopenia: Admission platelets 34, previous had been primarily low 100 range, likely secondary to underlying cancer as well as medication interventions, will hold Zejula per guideline recommendation, continue to trend CBC. #4. Diabetes mellitus type II with chronic neuropathy: Hold oral home regimen, n.p.o. status as noted, will maintain in the interim on accu checks w/ ISS, continue patient home gabapentin regimen. #5. Hypertension: Continue home regimen including Coreg, losartan, PRN hydralazine. #6. Hyperlipidemia: We will continue patient home statin therapy. #7. Restless leg syndrome: We will continue patient home Requip regimen. #8. History CVA: Will hold aspirin given acute on chronic thrombocytopenia temporarily, continue hypertensive regimen, continue home statin therapy holding diabetic regimen with alterations as noted. #9. Anxiety and depression: We will continue patient on sertraline home regimen. #10. Chronic macrocytic anemia: Admission hemoglobin 9.9, MCV 106.1, baseline hemoglobin noted prior primarily 8-9, stable from prior, will continue to trend CBC. #11. Obesity: Weight loss and lifestyle changes encouraged. #12. GERD: We will maintain on IV PPI. #13. DVT prophylaxis: SCDs. #14. CODE status: Patient BERNICE is her daughter who is present and living will is currently in place. Discussed CODE status at length including difference between FULL code, DNR-CCA and DNR-CC status. Following discussions about the differences in these status, requested Full Code status. Advanced Care Planning Face to Face Time: 16 minutes. Admission Evaluation Time spent evaluating chart, patient history, patient evaluation, care planning and discussion with specialists: 60 minutes. Charges/Coding Visit Charges Inpatient E&M: 40696 Init Hosp L2 Procedures Hospitalists Procedures: 72340 Advncd Care Plan 30 Min
[2022-09-22 00:28] VITALS: BP 191/105; PULSE 97; RESP 18; TEMP 36.7; O2SAT 96
[2022-09-22 00:48] LABS: Magnesium 1.6 mg/dL (1.6-2.6); Phosphorus 3.8 mg/dL (2.5-4.9)
[2022-09-22 04:43] VITALS: BP 152/74; PULSE 81; RESP 18; O2SAT 98
--- NOTE | 2022-09-22 05:06 | ED.RN ---
report called to erendira salomon at [facility].
[2022-09-24 12:20] LABS: Pathologist Review Reviewed
== END 2022-09-22 04:51 | disposition short-term general hospital (02) ==
PROVIDERS: Family Medicine; Emergency Provider Emergency Medicine; PCP Family Medicine; Visit Provider Emergency Medicine
DX: K59.00 Constipation, unspecified (principal); D69.6 Thrombocytopenia, unspecified; E11.9 Type 2 diabetes mellitus without complications; K57.92 Diverticulitis of intestine, part unspecified, without perforation or abscess without bleeding; F41.9 Anxiety disorder, unspecified; I10 Essential (primary) hypertension; K21.9 Gastro-esophageal reflux disease without esophagitis; E78.2 Mixed hyperlipidemia; Z90.710 Acquired absence of both cervix and uterus; Z85.43 Personal history of malignant neoplasm of ovary; Z86.73 Personal history of transient ischemic attack (TIA), and cerebral infarction without residual deficits; F32.A Depression, unspecified; G25.81 Restless legs syndrome; Z79.899 Other long term (current) drug therapy
CPT/HCPCS: 36591; 74022; 74177; 80048; 81001; 83735; 84100; 85025; 96361; 96365; 99285; J7030; Q9967; A4216

== ENCOUNTER 2022-09-28 22:28 | Emergency (ER) | payer MEDICARE, BC, SELFPAY ==
[2022-09-28 22:30] VITALS: BP 203/87; PULSE 81; RESP 18; TEMP 36.3; O2SAT 95
[2022-09-28 22:58] VITALS: BP 200/88; PULSE 78; RESP 13; O2SAT 95
--- NOTE | 2022-09-28 22:59 | EKG12_ITS ---
Test Reason : HYPERTENSION Blood Pressure : / mmHG Vent. Rate : 076 BPM Atrial Rate : 076 BPM P-R Int : 214 ms QRS Dur : 070 ms QT Int : 370 ms P-R-T Axes : 017 -17 018 degrees QTc Int : 416 ms Sinus rhythm with 1st degree A-V block Septal infarct , age undetermined Inferior infarct , age undetermined Abnormal ECG Confirmed by ARY SIMS, CHAKA ([id number]), editorial cartoonist JESÚS CARPENTER ([id number]) on 09/30/2022 12:36:00 PM Referred By: IVORY Confirmed By:CHAKA MCALLISTER MD
[2022-09-28 23:07] VITALS: BMI 34.5
[2022-09-28 23:08] LABS: Absolute Lymphocyte Count 1.44 X10^3/uL (0.83-4.51); Absolute Neutrophil Count 2.7 X10^3/uL (2.0-7.7); Basophil# 0.02 X10^3/uL; Basophil% 0.4 % (0-1); Eosinophil# 0.04 X10^3/uL; Eosinophils% 0.9 % (0-5); Hematocrit 26.6 % (37-47); Hemoglobin 8.6 g/dL (12.0-15.0); Lymphocyte # 1.44 X10^3/ul (0.83-4.51); Lymphocyte % 31.2 % (19-41); Mean Corp Hgb Conc 32.3 g/dL (32-36); Mean Corpuscular Hgb 31.6 pg (27.0-32.0); Mean Corpuscular Volume 97.8 fL (81-99); Monocyte# 0.34 X10^3/uL; Monocyte% 7.4 % (0-10); NRBC Flagged by Analyzer 0 % (0-5); Neutrophil # 2.74 X10^3/uL (2.7-7.7); Neutrophil % 59.4 % (47-70); POSITIVE COUNT YES; POSITIVE MORPHOLOGY YES; Platelet Count 26 K/mm3 (150-450); RBC Distribution Width CV 23.2 % (11.6-14.6); RBC Distribution Width SD 82.5 fl (35.1-43.9); Red Blood Count 2.72 M/mm3 (4.2-5.4); White Blood Count 4.6 K/mm3 (4.4-11.0)
[2022-09-28] MEDS: Labetalol (Prefilled) 20 MG/4 ML 10 MG IV (23:15)
[2022-09-28 23:17] LABS: Differential Indicated SCAN CRITERIA MET
[2022-09-28 23:21] LABS: Anion Gap 6 (5-15); BUN 19 mg/dL (7-18); BUN/Creat Ratio 21.1 RATIO (10-20); Calcium,Total 8.8 mg/dL (8.5-10.1); Chloride 106 mmol/L (98-107); EST Glomerular Filtration Rate 64 mL/min (>60); Est Glom Filt Rate - Afr Amer 78 mL/min (>60); Estimated Creatinine Clearance 64.19 ml/min; Glucose 106 mg/dL (74-106); Potassium 3.8 mmol/L (3.5-5.1); Sodium Level 136 mmol/L (136-145)
[2022-09-28 23:29] LABS: Anisocytosis 2+; Platelet Estimate MKD DEC (ADEQ)
[2022-09-28 23:52] VITALS: BP 167/93; PULSE 64; RESP 20; O2SAT 95
--- NOTE | 2022-09-28 23:54 | CT_ITS ---
STUDY: CT BRAIN WITHOUT CONTRAST REASON FOR EXAM: Female, 77 years old. Headache, hypertension, and thrombocytopenia RADIATION DOSAGE (If Supplied By Facility): CTDIvol = ( 44.99 ) mGy, DLP = ( 812.98 ) mGycm TECHNIQUE: Transaxial CT imaging of the brain was performed without administration of intravenous contrast material. Individualized dose optimization techniques were used for this CT. COMPARISON: MR brain dated 12/07/2021. FINDINGS: Normal soft tissue structures. Normal calvarium. There is mild cerebral atrophy with widening of the extra-axial spaces and ventricular dilatation. There is mild bilateral periventricular and subcortical white matter hypoattenuation which is symmetric in distribution. Small geographic hypoattenuation in the high right parietal lobe, consistent with prior infarct. Well-defined hypoattenuated lesion in the right lateral basal ganglia, unchanged.. Normal brainstem. Normal cerebellum. There is no intracranial hemorrhage. There are no findings of an acute ischemic infarction. There is mild mucoperiosteal thickening of the paranasal sinuses. . CT/Brain/Head without Contrast IMPRESSION: 1. No acute intracranial abnormality. 2. Mild bilateral periventricular and subcortical white matter and basal ganglial chronic small vessel disease with age appropriate cerebral atrophy. 3. Focal encephalomalacic change in the high right parietal lobe, consistent with prior infarct. 4. Mild chronic paranasal sinus disease Electronically Signed: Alton Quarles MD at 0:42 EDT ,
[2022-09-29 01:00] VITALS: BP 185/90; PULSE 72; RESP 16; O2SAT 96
--- NOTE | 2022-09-29 01:47 | EX.ED.DYSGE1 ---
HPI History of Present Illness Chief Complaint: Hypertension Informant: patient Narrative Narrative: Patient presents secondary to concerns for high blood pressure. Patient has a history of ovarian cancer. She was admitted to the [facility] at [facility] earlier in the week with a bowel obstruction. She required surgery and colostomy placement. Family states that while there she was on a continuous drip of medication for blood pressure control. This was stopped on Friday morning and she was discharged home Friday afternoon. Prior to her hospitalization she had been on losartan 12.5 mg daily. She was discharged from the hospital on losartan 25 mg daily along with carvedilol 6.25 mg twice daily. Patient states that she took those medications today but her blood pressure at home was running approximately 200/100. She took an extra dose of losartan this evening and presents to the ER for evaluation. She reports having a mild headache earlier in the day but denies headache currently. [facility] Medical History Anemia Anxiety Asthma Back pain Cancer Carotid stenosis, bilateral Cataracts, bilateral Cellulitis Colostomy in place Depression Diabetes Difficulty balancing Easy bruising Essential hypertension Fatty liver Fibromyalgia First degree AV block GERD (gastroesophageal reflux disease) Heart disease Herpes zoster High cholesterol History of diverticulitis History of ischemic stroke Hypertension Hypokalemia Inflammatory polyarthritis Leg cramps Low iron Mixed hyperlipidemia Myocardial infarct Non-smoker Osteopenia Ovarian cancer Pancytopenia Paroxysmal ventricular tachycardia PFO (patent foramen ovale) Restless legs Shortness of breath on exertion TIA (transient ischemic attack) Ventricular tachycardia seen on desk monitor Walker as ambulation aid Wears dentures Home Medications rosuvastatin 5 mg tablet 5 mg PO SUMOWEFR CHOLESTEROL 01/01/21 [History Last Taken 12/05/21] sertraline 100 mg tablet 200 mg PO DAILY DEPRESSION 01/01/21 [History Last Taken 09/20/22] ropinirole 0.5 mg tablet 0.5 mg PO QHS RLS 12/06/21 [History Last Taken 12/05/21] gabapentin 600 mg tablet 600 mg PO BID 01/15/22 [History Last Taken 09/20/22] triamcinolone acetonide 0.025 % topical cream 1 applic topical DAILY PRN Rash 01/15/22 [History Last Taken Unknown] lidocaine-prilocaine 2.5 %-2.5 % topical cream 2.5 g topical ONCE #30 grams 02/14/23 [Rx Last Taken Unknown] prochlorperazine maleate 5 mg tablet 5 mg PO BID PRN Nausea 04/23/22 [History Last Taken Unknown] ibuprofen 200 mg capsule 600 mg PO TID PRN Pain 06/19/22 [History Last Taken Unknown] losartan 25 mg tablet 25 mg PO DAILY BLOOD PRESSURE 07/01/22 [History Last Taken 09/20/22] famotidine 20 mg tablet (Pepcid AC) 20 mg PO DAILY #60 tabs 09/11/22 [Rx Last Taken Unknown] ondansetron 8 mg disintegrating tablet 8 mg PO Q8H PRN Nausea #30 tabs 09/16/22 [Rx Last Taken Unknown] carvedilol 3.125 mg tablet 6.25 mg PO BID 09/28/22 [History Last Taken Unknown] carvedilol 12.5 mg tablet (Coreg) 12.5 mg PO BID #20 tabs 09/29/22 [Rx Last Taken Unknown] Allergy/AdvReac Type Severity Reaction Status Date / Time aspirin AdvReac Mild Other Verified 09/28/22 22:30 lisinopril AdvReac Mild Other Verified 09/28/22 22:30 waldrop AdvReac Nausea/Vom/ Verified 09/28/22 22:30 Diarrhea ciprofloxacin AdvReac Vomiting Verified 09/28/22 22:30 methotrexate AdvReac Other Verified 09/28/22 22:30 rosuvastatin [From Crestor] AdvReac Other Verified 09/28/22 22:30 simvastatin AdvReac Pain in Verified 09/28/22 22:30 joints Family History Mother Asthma Heart disease Depression Psychiatric care CVA (cerebral vascular accident) Thyroid disorder History of ulcer disease Grandfather Myocardial infarction Heart disease Grandmother Myocardial infarction Heart disease CVA (cerebral vascular accident) Uncle Parkinson disease Sister Cancer Other Hypertension Surgical History H/O right breast biopsy H/O tubal ligation History of abdominal paracentesis Hx of breast biopsy Hx of hysterectomy Port-A-Cath in place Tubal ligation status Social History household members: family Smoking Status: Never smoker alcohol intake: never substance use type: does not use caffeine: Yes Type: carbonated beverages what type of physical activity do you participate in: none ROS ROS ED Constitutional Constitutional ED: Denies chills or fever(s) Eyes Eyes: Denies change in vision ENT ENT ED: Denies rhinorrhea or sore throat Cardiovascular Cardiovascular: Denies chest pain or palpitations Respiratory/Chest Respiratory/Chest: Denies cough or dyspnea Gastrointestinal Gastrointestinal: Denies abdominal pain, diarrhea, nausea or vomiting Genitourinary Genitourinary ED: Denies dysuria Musculoskeletal Musculoskeletal: Denies back pain or extremity pain Integumentary Denies Abrasions or rash Neurologic Neurologic: Denies headache(s) or weakness Psychiatric Psychiatric: Denies anxiety or depression Allergic/Immunologic Allergic/Immunologic ED: Denies lip swelling or urticaria EXAM Physical Exam Const Vital Signs: 09/28/22 22:30 09/28/22 22:58 09/28/22 22:58 Temperature 97.3 F L Temperature Source Temporal Pulse Rate 81 78 Respiratory Rate 18 13 Respiratory Effort Normal Blood Pressure 203/87 H 200/88 H Blood Pressure Mean 125 125 Pulse Ox 95 95 Oxygen Delivery Method Room Air Room Air 09/28/22 23:52 09/29/22 01:00 09/29/22 03:00 Temperature Temperature Source Pulse Rate 64 72 65 Respiratory Rate 20 H 16 18 Respiratory Effort Blood Pressure 167/93 H 185/90 H 176/81 H Blood Pressure Mean 117 121 112 Pulse Ox 95 96 96 Oxygen Delivery Method Room Air Room Air Room Air 09/29/22 04:06 Temperature Temperature Source Pulse Rate 64 Respiratory Rate 15 Respiratory Effort Blood Pressure 173/87 H Blood Pressure Mean 115 Pulse Ox 96 Oxygen Delivery Method Room Air Positive well nourished and well developed General Appearance ED: well developed HEENT Reports moist mucous membranes Eyes EOMs intact bilaterally Chest Wall inspection of chest normal and palpation of chest normal Resp normal respiratory effort and clear to auscultation bilaterally Cardio regular rate and regular rhythm GI GI Narrative: Colostomy in place. Active bowel sounds are noted. Extremity normal to inspection Neuro oriented x3 and no sensory deficits noted Motor Exam: strength 5/5 throughout Psych mental status grossly normal MDM MDM MDM Narrative Medical decision making narrative: Patient placed on desk monitor. 10 mg of IV labetalol ordered for blood pressure control. Labwork obtained to evaluate for leukocytosis, anemia, and electrolyte derangement. EKG obtained to evaluate for cardiac arrhythmia/ischemia. History & Record Review Discussion w/independent historian: Patient and Family Additional record(s) reviewed:: Prior inpatient record, Prior ED visit and Prior labs Lab Data Attestation: I reviewed the patient's lab results. Labs: Laboratory Results - last 24 hr 09/28/22 22:50 WBC 4.6 RBC 2.72 L Hgb 8.6 L Hct 26.6 L MCV 97.8 MCH 31.6 MCHC 32.3 RDW Std Deviation 82.5 H RDW Coeff of Glenn 23.2 H Plt Count 26 L* Immature Gran % (Auto) 0.700 Neut % (Auto) 59.4 Lymph % (Auto) 31.2 [place] % (Auto) 7.4 Eos % (Auto) 0.9 Baso % (Auto) 0.4 Absolute Neuts (auto) 2.7 Absolute Lymphs (auto) 1.44 Nucleated RBC % 0 Diff Path Review May foll Platelet Estimate MKD DEC Anisocytosis 2+ Sodium 136 Potassium 3.8 Chloride 106 Carbon Dioxide 24.0 Anion Gap 6 BUN 19 H Creatinine 0.90 Estim Creat Clear Calc 64.19 Est GFR (MDRD) Af Amer 78 Est GFR (MDRD) Non-Af 64 BUN/Creatinine Ratio 21.1 H Glucose 106 Calcium 8.8 Radiography Diagnostic Testing: Clinical Impression(s) from Imaging Studies Brain CT 09/28/22 23:54 IMPRESSION: 1. No acute intracranial abnormality. 2. Mild bilateral periventricular and subcortical white matter and basal ganglial chronic small vessel disease with age appropriate cerebral atrophy. 3. Focal encephalomalacic change in the high right parietal lobe, consistent with prior infarct. 4. Mild chronic paranasal sinus disease Electronically Signed: Alton Quarles MD at 0:42 EDT , EKG Initial EKG: Attestation: I personally reviewed and interpreted this EKG as follows: Interpretation: Sinus Rhythm (Sinus at 76 with first-degree AV block. No acute ischemia.) Treatment and Re-Evaluation :: CBC reveals normal white count at 4.6 and a hemoglobin of 8.6. Her hemoglobin at [facility] was 8.4 on the 21st. [facility] Her platelet count at [facility] on the was 48,000. Chemistry studies are unremarkable. After 10 mg of IV labetalol her blood pressure initially came down into the mid 160s systolic. Blood pressure has slowly increased again into the 180s and will be given a second dose of labetalol. Given her significant thrombocytopenia and hypertension with a headache earlier she was sent for a CT scan of the head to ensure no evidence of bleed. This reveals chronic changes but no acute bleeding. Patient states that she has never had platelet count this low and is concerned that she may need a platelet transfusion. I spoke with Dr. Smyth. He states that with the patient not bleeding they would not prophylactically transfuse until her platelet count is 10,000. He did asked that we ensure she is no longer taking to [place] which may raise her blood pressure. Patient states that she is no longer on this medication. I will double the patient's carvedilol to 12.5 mg twice daily. I will write her a short course of this. She has an appointment to see Dr. Smyth tomorrow and her PCP the following day. Return instructions are given. Discharge Plan Triage Chief Complaint: Hypertension ED Provider: Latha Villarreal Dx/Rx/DC Orders Clinical Impression: Thrombocytopenia, Hypertension Instructions: ED Hypertension, Established Prescriptions: New carvedilol [Coreg] 12.5 mg tablet 12.5 mg PO BID Qty: 20 0RF Rx Instructions: must administer with a meal/food No Action rosuvastatin 5 mg tablet 5 mg PO SUMOWEFR Rx Instructions: patient takes 4 times a week losartan 25 mg tablet 25 mg PO DAILY gabapentin 600 mg tablet 600 mg PO BID triamcinolone acetonide 0.025 % cream 1 applic topical DAILY PRN (Reason: Rash) ibuprofen 200 mg capsule 600 mg PO TID PRN (Reason: Pain) prochlorperazine maleate 5 mg tablet 5 mg PO BID PRN (Reason: Nausea) lidocaine-prilocaine 2.5-2.5 % cream 2.5 g topical ONCE Qty: 30 1RF famotidine [Pepcid AC] 20 mg tablet 20 mg PO DAILY Qty: 60 0RF sertraline 100 mg tablet 200 mg PO DAILY Patient Comments: DEPRESSION ropinirole 0.5 mg tablet 0.5 mg PO QHS carvedilol 3.125 mg tablet 6.25 mg PO BID Rx Instructions: must administer with a meal/food ondansetron 8 mg tablet,disintegrating 8 mg PO Q8H PRN (Reason: Nausea) Qty: 30 2RF Primary Care Provider: Magi Farmer Referrals: Magi Farmer MD [Primary Care Provider] - Keep [facility] appointment Disposition Disposition: Home, Self Care
[2022-09-29] MEDS: Labetalol (Prefilled) 20 MG/4 ML 10 MG IV ×2 (02:05→04:02)
[2022-09-29 03:00] VITALS: BP 176/81; PULSE 65; RESP 18; O2SAT 96
[2022-09-29 04:06] VITALS: BP 173/87; PULSE 64; RESP 15; O2SAT 96
[2022-09-29 04:26] VITALS: BP 169/83; PULSE 63; RESP 18; O2SAT 95
[2022-10-01 09:52] LABS: Pathologist Review Reviewed
== END 2022-09-29 04:42 | disposition home or self-care (01) ==
PROVIDERS: Emergency Provider Emergency Medicine; PCP Family Medicine; Visit Provider Emergency Medicine
DX: I10 Essential (primary) hypertension (principal); Z93.3 Colostomy status; D69.6 Thrombocytopenia, unspecified; E11.9 Type 2 diabetes mellitus without complications; E78.2 Mixed hyperlipidemia; Z85.43 Personal history of malignant neoplasm of ovary; Z86.73 Personal history of transient ischemic attack (TIA), and cerebral infarction without residual deficits; F32.A Depression, unspecified; Z79.899 Other long term (current) drug therapy; G25.81 Restless legs syndrome; K21.9 Gastro-esophageal reflux disease without esophagitis; Z90.710 Acquired absence of both cervix and uterus; Z98.51 Tubal ligation status
CPT/HCPCS: 36591; 70450; 80048; 85025; 93005; 99283; A4216

== ENCOUNTER → 2022-10-15 | Outpatient (CLI) | payer MEDICARE, BC, SELFPAY ==
[2022-10-15 07:40] LABS: Mean Corpuscular Hgb 31.9 pg (27.0-32.0); Mean Corpuscular Volume 102.8 fL (81-99); Mean Platelet Vol. 10.8 fl (6.2-12.0); POSITIVE COUNT YES; POSITIVE MORPHOLOGY YES; Platelet Count 84 K/mm3 (150-450); RBC Distribution Width CV 23.4 % (11.6-14.6); RBC Distribution Width SD 86.3 fl (35.1-43.9); Red Blood Count 2.82 M/mm3 (4.2-5.4); White Blood Count 5.4 K/mm3 (4.4-11.0)
[2022-10-15 07:51] LABS: Scan Indicated on CBC? Y/N YES- FLAGS NOTED
[2022-10-15 08:08] LABS: Anion Gap 7 (5-15); BUN 21 mg/dL (7-18); BUN/Creat Ratio 22.7 RATIO (10-20); Calcium,Total 9.1 mg/dL (8.5-10.1); Chloride 107 mmol/L (98-107); Cholesterol 157 mg/dL (200); Creatinine, Serum 0.92 mg/dL (0.55-1.02); EST Glomerular Filtration Rate 62 mL/min (>60); Est Glom Filt Rate - Afr Amer 75 mL/min (>60); Glucose 105 mg/dL (74-106); High Density Lipoprotein 40 mg/dL; Potassium 3.7 mmol/L (3.5-5.1); Sodium Level 141 mmol/L (136-145); Triglycerides 194 mg/dL; Very Low Density Lipoprotein 39 mg/dL (5-40)
[2022-10-15 08:18] LABS: Differential Comment SCANNED
--- NOTE | 2022-10-15 09:20 | WOUNDNOTE ---
Pt had called to make appt to see this nurse for assistance with ostomy care. Pt presents with daughter who has been assisting with changing the colostomy appliance. patient had surgery approx 4 weeks ago in [place]. Daughter states she was only shown how to change the appliance once. Pt was not sent home with many appliances and patient was worried she would run out. patient recently got home health to assist and now has appliances. Pt is currently using a 1 piece convex Coloplast appliance. daughter states she is feeling better about changing the appliance now. pt was needing to change the appliance numerous times a day and now the current appliance has been in place for 3 days. daughter states the peristomal skin is much improved now. removed the appliance. stoma sits just above the skin level. stoma is pink and moist. measures approx 1 3/8 and is slightly oval in shape. some mild redness noted ot the periwound. cleansed skin with warm water. pat dry. applied a new convex 1 piece Coloplast appliance with a small amount of stoma paste. pt tolerated well. all questions answered. pt and daughter very appreciative of visit. aware to call if needs arise.
== END | disposition home or self-care (01) ==
PROVIDERS: PCP Family Medicine; Referring Provider Family Medicine; Visit Provider Family Medicine
DX: K56.691 Other complete intestinal obstruction (principal); E78.5 Hyperlipidemia, unspecified; Z79.01 Long term (current) use of anticoagulants
CPT/HCPCS: 36415; 80048; 80061; 85027; 99211; G0463

== ENCOUNTER 2022-10-22 12:53 | Emergency (ER) | payer MEDICARE, BC, SELFPAY ==
[2022-10-22 12:53] VITALS: BP 132/87; PULSE 91; RESP 16; TEMP 36.6; O2SAT 100
[2022-10-22 14:31] VITALS: BMI 34.0
--- NOTE | 2022-10-22 15:13 | ED.VIS.GI ---
HPI HPI - GI History of Present Illness Chief Complaint: Nausea/Vomiting Informant: patient and family (Daughter) Abdominal Pain/Flank Pain Onset: Today Timing: Intermittent Quality: Cramping Location: Diffuse Current Severity: Mild Maximum Severity: Mild Worsened by: Nothing Relieved by: Nothing Nausea/Vomiting/Emesis GI Symptom: Positive for Nausea and Vomiting Onset: Today Quality: Positive for Nonbilious; Negative for Blood streaks, Coffee ground or Hematemesis Severity: Moderate Diarrhea/Melena/Hematochezia GI Symptom: Positive for Diarrhea (Unchanged since colostomy placed); Negative for Melena or Hematochezia Narrative Narrative: Patient has a history of ovarian cancer, there was a different mass growing in her abdomen that resulted in the need for a diverting colostomy, plan for some future reversal, but the colostomy was performed at [facility] about 4 weeks ago. She states she has been doing very well since then, she had normal/usual liquid colostomy output, and presents today because of nausea and vomiting that started around 2 AM, presenting here around 3 PM, she had very little to eat or drink today, so as a result of that just as of lately she has had decreased colostomy output but it is still flowing and appears as usual without any blood or melena. She has not been vomiting any blood or anything unusual. Just very nauseated. Mild abdominal cramping on occasion, but not constantly, and no severe abdominal pains otherwise. Has been out and around recently in public but no known sick contacts, she denies any fevers or chills. No cough or shortness of breath or pleuritic symptoms or chest discomfort. Last chemotherapy was 6-8 weeks ago, they are continuing to watch her numbers and waiting for her to be appropriate for restarting it. No new medications otherwise. She has been taking some Zofran on occasion today and it has been helping some but not a lot. [facility] Medical History Anemia Anxiety Asthma Back pain Cancer Carotid stenosis, bilateral Cataracts, bilateral Cellulitis Colostomy in place Depression Diabetes Difficulty balancing Easy bruising Essential hypertension Fatty liver Fibromyalgia First degree AV block GERD (gastroesophageal reflux disease) Heart disease Herpes zoster High cholesterol History of diverticulitis History of ischemic stroke Hypertension Hypokalemia Inflammatory polyarthritis Leg cramps Low iron Mixed hyperlipidemia Myocardial infarct Non-smoker Osteopenia Ovarian cancer Pancytopenia Paroxysmal ventricular tachycardia PFO (patent foramen ovale) Restless legs Shortness of breath on exertion TIA (transient ischemic attack) Ventricular tachycardia seen on lunchroom monitor Walker as ambulation aid Wears dentures Home Medications rosuvastatin 5 mg tablet 5 mg PO SUMOWEFR CHOLESTEROL 01/01/21 [History Last Taken 12/05/21] sertraline 100 mg tablet 200 mg PO DAILY DEPRESSION 01/01/21 [History Last Taken 09/20/22] ropinirole 0.5 mg tablet 0.5 mg PO QHS RLS 12/06/21 [History Last Taken 12/05/21] gabapentin 600 mg tablet 600 mg PO BID 01/15/22 [History Last Taken 09/20/22] triamcinolone acetonide 0.025 % topical cream 1 applic topical DAILY PRN Rash 01/15/22 [History Last Taken Unknown] lidocaine-prilocaine 2.5 %-2.5 % topical cream 2.5 g topical ONCE #30 grams 04/23/22 [Rx Last Taken Unknown] prochlorperazine maleate 5 mg tablet 5 mg PO BID PRN Nausea 04/23/22 [History Last Taken Unknown] ibuprofen 200 mg capsule 600 mg PO TID PRN Pain 06/19/22 [History Last Taken Unknown] losartan 25 mg tablet 25 mg PO DAILY BLOOD PRESSURE 07/01/22 [History Last Taken 09/20/22] famotidine 20 mg tablet (Pepcid AC) 20 mg PO DAILY #60 tabs 09/11/22 [Rx Last Taken Unknown] ondansetron 8 mg disintegrating tablet 8 mg PO Q8H PRN Nausea #30 tabs 09/16/22 [Rx Last Taken Unknown] carvedilol 12.5 mg tablet (Coreg) 12.5 mg PO BID #20 tabs 09/29/22 [Rx Last Taken Unknown] Allergy/AdvReac Type Severity Reaction Status Date / Time aspirin AdvReac Mild Other Verified 10/22/22 12:55 lisinopril AdvReac Mild Other Verified 10/22/22 12:55 waldrop AdvReac Nausea/Vom/ Verified 10/22/22 12:55 Diarrhea ciprofloxacin AdvReac Vomiting Verified 10/22/22 12:55 methotrexate AdvReac Other Verified 10/22/22 12:55 rosuvastatin [From Crestor] AdvReac Other Verified 10/22/22 12:55 simvastatin AdvReac Pain in Verified 10/22/22 12:55 joints Family History Mother Asthma Heart disease Depression Psychiatric care CVA (cerebral vascular accident) Thyroid disorder History of ulcer disease Grandfather Myocardial infarction Heart disease Grandmother Myocardial infarction Heart disease CVA (cerebral vascular accident) Uncle Parkinson disease Sister Cancer Other Hypertension Surgical History H/O right breast biopsy H/O tubal ligation History of abdominal paracentesis Hx of breast biopsy Hx of hysterectomy Port-A-Cath in place Tubal ligation status Social History household members: family Smoking Status: Never smoker alcohol intake: never substance use type: does not use caffeine: Yes Type: carbonated beverages what type of physical activity do you participate in: none ROS ROS ED Constitutional Constitutional ED: Denies chills or fever(s) Eyes Eyes: Denies change in vision or diplopia ENT ENT ED: Denies rhinorrhea or sore throat Cardiovascular Cardiovascular: Denies chest pain or palpitations Respiratory/Chest Respiratory/Chest: Denies cough or dyspnea Gastrointestinal Gastrointestinal: Reports abdominal pain, diarrhea, nausea and vomiting Genitourinary Genitourinary ED: Denies dysuria or hematuria Musculoskeletal Musculoskeletal: Denies back pain or neck pain Integumentary Denies abscess or rash Neurologic Neurologic: Denies headache(s), paresthesias or weakness Psychiatric Psychiatric: Denies anxiety or suicidal thoughts EXAM Physical Exam Const Vital Signs: 10/22/22 12:53 Temperature 97.8 F Temperature Source Temporal Pulse Rate 91 Respiratory Rate 16 Blood Pressure 132/87 H Blood Pressure Mean 102 Pulse Ox 100 Oxygen Delivery Method Room Air Positive well nourished and well developed General Appearance ED: well developed and NAD HEENT Reports moist mucous membranes normocephalic and atraumatic Eyes PERRL and EOMs intact bilaterally Neck full ROM and supple Resp normal respiratory effort and clear to auscultation bilaterally Cardio regular rate, regular rhythm and no murmurs Rate: Negative for tachycardic GI non-tender and non-distended GI Narrative: Colostomy in place left lower quadrant, site benign, light brown liquid nonbloody nonmelanotic stool in bag. Well-healing surgical incisions. No palpable hernias. Auscultation: normoactive bowel sounds Palpation: soft Back/Spine no CVA tenderness General Back: other FROM Extremity normal to inspection General Extremety ED: Negative for edema, pulses abnormal or tenderness General Extremity: Negative for edema or pulses abnormal Neuro oriented x3, CN's II-XII intact bilaterally and no sensory deficits noted Sensorium / Orientation: awake and alert Motor Exam: strength 5/5 throughout Skin no rashes or lesions noted and no wounds MDM MDM MDM Narrative Medical decision making narrative: Basic labs obtained and noted, other than prerenal azotemia, and a higher hemoglobin than she has had recently, they are unremarkable. She was treated with IV fluids, Reglan, feeling much better on reevaluation tolerating oral fluids. Certainly infectious viral gastritis or gastroenteritis, is possible, less likely to be bacterial given the history and her benign exam and lack of leukocytosis, at this time I think supportive care is really reasonable, I do not think she needs advanced imaging of the abdomen which we discussed and she was in agreement with that to. If she has severe pain and/or focal pain, encouraged her to return for reevaluation, hopefully this will be a self-limiting issue, we discussed follow-up she has prescription for promethazine and Zofran at home she is comfortable with all of this. Lab Data Attestation: I reviewed the patient's lab results. Labs: Laboratory Results - last 24 hr 10/22/22 15:55 WBC 7.4 RBC 3.31 L Hgb 10.4 L Hct 33.3 L MCV 100.6 H MCH 31.4 MCHC 31.2 L RDW Std Deviation 84.8 H RDW Coeff of Glenn 23.5 H Plt Count 127 L MPV 10.1 Immature Gran % (Auto) 0.700 Neut % (Auto) 84.3 H Lymph % (Auto) 10.3 L [place] % (Auto) 4.5 Eos % (Auto) 0.1 Baso % (Auto) 0.1 Absolute Neuts (auto) 6.2 Absolute Lymphs (auto) 0.76 L Nucleated RBC % 0 Differential Comment Sodium 140 Potassium 4.3 Chloride 105 Carbon Dioxide 29.0 Anion Gap 6 BUN 22 H Creatinine 0.77 Estim Creat Clear Calc 55.92 Est GFR (MDRD) Af Amer 93 Est GFR (MDRD) Non-Af 77 BUN/Creatinine Ratio 28.5 H Glucose 108 H Calcium 9.5 Total Bilirubin 0.60 AST 24 ALT 22 Alkaline Phosphatase 98 Total Protein 7.7 Albumin 3.6 Globulin 4.1 Albumin/Globulin Ratio 0.9 Discharge Plan Triage Chief Complaint: Nausea/Vomiting ED Provider: Dionicio Fontana Dx/Rx/DC Orders Clinical Impression: Nausea vomiting and diarrhea, Mild dehydration Instructions: ED Vomiting (Adult) Prescriptions: No Action rosuvastatin 5 mg tablet 5 mg PO SUMOWEFR Rx Instructions: patient takes 4 times a week losartan 25 mg tablet 25 mg PO DAILY gabapentin 600 mg tablet 600 mg PO BID triamcinolone acetonide 0.025 % cream 1 applic topical DAILY PRN (Reason: Rash) ibuprofen 200 mg capsule 600 mg PO TID PRN (Reason: Pain) prochlorperazine maleate 5 mg tablet 5 mg PO BID PRN (Reason: Nausea) lidocaine-prilocaine 2.5-2.5 % cream 2.5 g topical ONCE Qty: 30 1RF famotidine [Pepcid AC] 20 mg tablet 20 mg PO DAILY Qty: 60 0RF sertraline 100 mg tablet 200 mg PO DAILY Patient Comments: DEPRESSION ropinirole 0.5 mg tablet 0.5 mg PO QHS carvedilol [Coreg] 12.5 mg tablet 12.5 mg PO BID Qty: 20 0RF Rx Instructions: must administer with a meal/food ondansetron 8 mg tablet,disintegrating 8 mg PO Q8H PRN (Reason: Nausea) Qty: 30 2RF Primary Care Provider: Magi Famrer Referrals: Magi Farmer MD [Primary Care Provider] - 3-5 Days if not improving Disposition Disposition: Home, Self Care
[2022-10-22] MEDS: Metoclopramide 10 MG/2 ML Vial 5 MG IV (16:07)
[2022-10-22] MEDS: 0.9% Normal Saline 1,000 ML 999 ML IV (16:08)
[2022-10-22 16:19] LABS: Absolute Lymphocyte Count 0.76 X10^3/uL (0.83-4.51); Absolute Neutrophil Count 6.2 X10^3/uL (2.0-7.7); Basophil# 0.01 X10^3/uL; Basophil% 0.1 % (0-1); Eosinophil# 0.01 X10^3/uL; Eosinophils% 0.1 % (0-5); Hematocrit 33.3 % (37-47); Hemoglobin 10.4 g/dL (12.0-15.0); Lymphocyte # 0.76 X10^3/ul (0.83-4.51); Lymphocyte % 10.3 % (19-41); Mean Corp Hgb Conc 31.2 g/dL (32-36); Mean Corpuscular Hgb 31.4 pg (27.0-32.0); Mean Corpuscular Volume 100.6 fL (81-99); Mean Platelet Vol. 10.1 fl (6.2-12.0); Monocyte# 0.33 X10^3/uL; Monocyte% 4.5 % (0-10); NRBC Flagged by Analyzer 0 % (0-5); Neutrophil # 6.19 X10^3/uL (2.7-7.7); Neutrophil % 84.3 % (47-70); POSITIVE MORPHOLOGY YES; Platelet Count 127 K/mm3 (150-450); RBC Distribution Width CV 23.5 % (11.6-14.6); RBC Distribution Width SD 84.8 fl (35.1-43.9); Red Blood Count 3.31 M/mm3 (4.2-5.4); White Blood Count 7.4 K/mm3 (4.4-11.0)
[2022-10-22 16:23] LABS: Differential Indicated SCAN CRITERIA MET
[2022-10-22 16:35] LABS: ALB/GLOB Ratio 0.9 RATIO (0.9-2.4); AST(SGOT) 24 U/L (15-37); Alanine Aminotransfer ALT/SGPT 22 U/L (13-56); Albumin, Serum 3.6 g/dL (3.2-5.0); Alkaline Phosphatase 98 U/L (45-117); Anion Gap 6 (5-15); BUN 22 mg/dL (7-18); BUN/Creat Ratio 28.5 RATIO (10-20); Calcium,Total 9.5 mg/dL (8.5-10.1); Chloride 105 mmol/L (98-107); Creatinine, Serum 0.77 mg/dL (0.55-1.02); EST Glomerular Filtration Rate 77 mL/min (>60); Est Glom Filt Rate - Afr Amer 93 mL/min (>60); Estimated Creatinine Clearance 55.92 ml/min; Globulin 4.1 g/dL (2.2-4.2); Glucose 108 mg/dL (74-106); Potassium 4.3 mmol/L (3.5-5.1); Protein, Total 7.7 g/dL (6.4-8.2); Sodium Level 140 mmol/L (136-145)
[2022-10-22 17:21] VITALS: BP 148/90; PULSE 87; RESP 18; O2SAT 98
--- NOTE | 2022-10-22 17:24 | ED.RN ---
Patient tolerating oral fluids
--- NOTE | 2022-10-22 18:10 | ED.RN ---
Port flushed and de-accessed, wheeled from dept.
== END 2022-10-22 18:11 | disposition home or self-care (01) ==
PROVIDERS: Emergency Provider Emergency Medicine; PCP Family Medicine; Visit Provider Emergency Medicine
DX: E86.0 Dehydration (principal); Z93.3 Colostomy status; E11.9 Type 2 diabetes mellitus without complications; R11.2 Nausea with vomiting, unspecified; R19.00 Intra-abdominal and pelvic swelling, mass and lump, unspecified site; E78.2 Mixed hyperlipidemia; R19.7 Diarrhea, unspecified; I10 Essential (primary) hypertension
CPT/HCPCS: 36591; 80053; 85025; 96361; 96374; 99283; J7030; A4216

== ENCOUNTER → 2022-11-14 | Outpatient (CLI) | payer MEDICARE, BC, SELFPAY ==
--- NOTE | 2022-11-14 07:27 | ECHODONC_ITS ---
Version 2 Reason For Study: Pre Chemo Procedure This was a 2D Doppler, Color Flow transthoracic echocardiogram. Myocardial strain analysis was performed in this exam to aid in the assessment of cardiac function. Exam performed in department. Left Ventricle Normal LV size. Left ventricular systolic function is normal. The estimated ejection fraction is 65 %. No regional wall motion abnormalities noted. Right Ventricle Normal RV size. Normal systolic function. Atria Normal left atrium. Normal right atrium. Mitral Valve Normal mitral valve. Mild (1+) eccentric mitral valve insufficiency. Tricuspid Valve Normal tricuspid valve. Pulmonary artery systolic pressure is 30 mmHg. Mild tricuspid valve insufficiency. Aortic Valve Normal aortic valve. Pulmonic Valve Normal pulmonic valve. Great Vessels Normal aortic root. The pulmonary artery is normal size. Normal inferior vena cava. Pericardium/Pleural No pericardial effusion. MMode/2D Measurements & Calculations LVIDd: 4.3 cm IVSd: 0.84 cm Ao root diam: 3.8 cm LVIDs: 2.4 cm LVPWd: 0.93 cm RVDd: 2.8 cm FS: 42.7 % LAV(MOD-bp): 20.0 ml LVAd ap4: 20.9 cm2 SV(MOD-sp4): 33.0 ml LAV(MOD-bp) Indexed: 11.9 ml/m2 LVLd ap4: 7.0 cm LAV(MOD-sp2): 24.7 ml EDV(MOD-sp4): 50.1 ml LAV(MOD-sp4): 16.0 ml EDV(sp4-el): 52.6 ml LVAs ap4: 10.7 cm2 LVLs ap4: 6.0 cm ESV(MOD-sp4): 17.1 ml ESV(sp4-el): 16.2 ml EF(MOD-sp4): 65.9 % EF(sp4-el): 69.1 % SV(sp4-el): 36.3 ml LA A4 area: 9.0 cm2 LA dimension(2D): 3.0 cm RA A4 area: 8.1 cm2 TAPSE: 2.1 cm Time Measurements MV dec time: 0.25 sec Doppler Measurements & Calculations MV E max brayan: 82.2 cm/sec Lat Peak E' Brayan: 7.4 cm/sec Med Peak E' Brayan: 5.9 cm/sec MV A max brayan: 114.5 cm/sec E/E' lat: 11.1 E/E' med: 13.9 MV E/A: 0.72 Ao V2 max: 141.1 cm/sec LV V1 max: 135.4 cm/sec MV dec slope: 338.2 cm/sec2 Ao max P.0 mmHg LV V1 max P.3 mmHg Ao V2 mean: 101.2 cm/sec LV V1 mean P.4 mmHg Ao mean P.5 mmHg LV V1 mean: 83.7 cm/sec Ao V2 VTI: 28.9 cm LV V1 VTI: 30.3 cm AV (velocity ratio): 1.0 PA V2 max: 93.9 cm/sec PI end-d brayan: 96.1 cm/sec TR max brayan: 253.4 cm/sec TR max P.7 mmHg ECHO/ONC Echo Complete Interpretation Summary Normal LV size. Left ventricular systolic function is normal. The estimated ejection fraction is 65 %. Mild (1+) eccentric mitral valve insufficiency. Mild tricuspid valve insufficiency. The global longitudinal strain is normal. The global longitudinal strain = -20. 5 % (normal). Ordering Physician: Goran Smyth Referring Physician: Magi Farmer Performed By: Linda Brown, RDCS, RVT
== END | disposition home or self-care (01) ==
LOC: CVS 07:26
PROVIDERS: PCP Family Medicine; Referring Provider Internal Medicine Medical Oncology; Visit Provider Internal Medicine Medical Oncology
DX: Z51.11 Encounter for antineoplastic chemotherapy (principal); Z01.818 Encounter for other preprocedural examination
CPT/HCPCS: 93306; 93356

== ENCOUNTER 2022-11-27 16:28 | Observation (INO) | payer MEDICARE, BC, SELFPAY ==
[2022-11-27 16:29] VITALS: BP 111/81; PULSE 90; RESP 16; TEMP 36.4; O2SAT 95; BMI 32.3
--- NOTE | 2022-11-27 17:28 | CT_ITS ---
INDICATION: abd pain, history of ovarian cancer. EXAMINATION: CT ABDOMEN AND PELVIS WITH CONTRAST - CT Abdomen And Pelvis W/ Contrast Injection TECHNIQUE: Helically acquired images were obtained of the abdomen and pelvis following IV contrast. A radiation dose optimization technique was used for this scan. IV Contrast dosage and agent: 100 cc [id number] Oral contrast: None. COMPARISON: 09/21/2022 FINDINGS: LOWER CHEST: Bibasilar dependent changes with trace left pleural effusion. No cardiomegaly or pericardial effusion. LIVER: Increasing size of scattered low-attenuation foci in the right lobe. GALLBLADDER AND BILIARY TREE: No calcified gallstones. No gallbladder distension or wall edema. No intra- or extrahepatic biliary ductal dilation. PANCREAS: No focal cystic or solid mass. SPLEEN: Normal size without focal cystic or solid mass. ADRENAL GLANDS: No nodules. KIDNEYS AND URETERS: Bilateral hydronephrosis without obstructing ureteral calculus. PERITONEUM: Scattered ascites. No free air. BOWEL: Normal appendix. Abnormal small bowel distention up to 3.7 cm with transition in the lower abdomen. Left mid abdominal colostomy. Colonic diverticulosis with diffuse colonic wall thickening of the descending and sigmoid colon with mild adjacent inflammatory stranding. LYMPH NODES: No enlarged mesenteric or retroperitoneal lymph nodes. VESSELS: Aorta is non-dilated. URINARY BLADDER: Unremarkable. REPRODUCTIVE ORGANS: Uterus absent. BONES: No acute or aggressive abnormality. CT/Abdomen/Pelvis W IV Cont ONLY IMPRESSION: At least partial small bowel obstruction with transition in the lower abdomen. Colitis of the descending and sigmoid colon. Scattered ascites. Bilateral hydronephrosis without obstructing ureteral calculus. Increasing size of scattered low-attenuation hepatic lesions suspicious for metastatic disease. Electronically Signed: Abdulkadir Deleon MD at 19:41 EDT ,
--- NOTE | 2022-11-27 17:29 | ED.VIS.GI ---
HPI HPI - GI History of Present Illness Chief Complaint: Abd Pain Detail of Chief Complaint: Abdominal pain 8:30 AM. Associated nausea and vomiting. Resolved. Abdominal Pain/Flank Pain Onset: Today Context: Gradual Onset Timing: Continuous Location: Diffuse Current Severity: Gone Maximum Severity: Mild Worsened by: Nothing Relieved by: Nothing Nausea/Vomiting/Emesis GI Symptom: Positive for Nausea and Vomiting Onset: Today Severity: Mild Diarrhea/Melena/Hematochezia GI Symptom: Negative for Diarrhea, Melena or Hematochezia Associated Symptoms Associated Symptoms: Negative for Dysuria, Frequency or Hematuria Narrative Narrative: 77-year-old female history of ovarian cancer diagnosed in 2020 she has been on chemotherapy last 2 years most recent chemotherapy started a week ago. She had a recent ostomy placed about 2 months ago and I state. She has had a total hysterectomy. She is also diabetic and has a history of anemia. States around 830 this morning she had abdominal pain with nausea vomiting that is all resolved. Denies any fever. No dysuria. Prior similar symptoms: Yes Recent Illness/Hospitalization: Yes PFSH PFS Medical History Anemia Anxiety Asthma Back pain Cancer Carotid stenosis, bilateral Cataracts, bilateral Cellulitis CINV (chemotherapy-induced nausea and vomiting) Colostomy in place Depression Diabetes Difficulty balancing Easy bruising Essential hypertension Fatty liver Fibromyalgia First degree AV block GERD (gastroesophageal reflux disease) Heart disease Herpes zoster High cholesterol History of diverticulitis History of ischemic stroke Hypertension Hypokalemia Inflammatory polyarthritis Leg cramps Low iron Mixed hyperlipidemia Myocardial infarct Non-smoker Osteopenia Ovarian cancer Pancytopenia Paroxysmal ventricular tachycardia PFO (patent foramen ovale) Restless legs Shortness of breath on exertion TIA (transient ischemic attack) Ventricular tachycardia seen on quality assurance monitor Walker as ambulation aid Wears dentures Home Medications rosuvastatin 5 mg tablet 5 mg PO SUMOWEFR CHOLESTEROL 01/01/21 [History Last Taken 12/05/21] sertraline 100 mg tablet 200 mg PO DAILY DEPRESSION 01/01/21 [History Last Taken 09/20/22] ropinirole 0.5 mg tablet 0.5 mg PO QHS RLS 12/06/21 [History Last Taken 12/05/21] gabapentin 600 mg tablet 600 mg PO BID 01/15/22 [History Last Taken 09/20/22] triamcinolone acetonide 0.025 % topical cream 1 applic topical DAILY PRN Rash 01/15/22 [History Last Taken Unknown] lidocaine-prilocaine 2.5 %-2.5 % topical cream 2.5 g topical ONCE #30 grams 04/23/22 [Rx Last Taken Unknown] prochlorperazine maleate 5 mg tablet 5 mg PO BID PRN Nausea 04/23/22 [History Last Taken Unknown] ibuprofen 200 mg capsule 600 mg PO TID PRN Pain 06/19/22 [History Last Taken Unknown] losartan 25 mg tablet 25 mg PO DAILY BLOOD PRESSURE 07/01/22 [History Last Taken 09/20/22] famotidine 20 mg tablet (Pepcid AC) 20 mg PO DAILY #60 tabs 09/11/22 [Rx Last Taken Unknown] ondansetron 8 mg disintegrating tablet 8 mg PO Q8H PRN Nausea #30 tabs 09/16/22 [Rx Last Taken Unknown] carvedilol 12.5 mg tablet (Coreg) 12.5 mg PO BID #20 tabs 09/29/22 [Rx Last Taken Unknown] diclofenac sodium 1 % topical gel 2 g topical BID #100 grams 11/21/22 [Rx Last Taken Unknown] Allergy/AdvReac Type Severity Reaction Status Date / Time aspirin AdvReac Mild Other Verified 11/27/22 16:29 lisinopril AdvReac Mild Other Verified 11/27/22 16:29 waldrop AdvReac Nausea/Vom/ Verified 11/27/22 16:29 Diarrhea ciprofloxacin AdvReac Vomiting Verified 11/27/22 16:29 methotrexate AdvReac Other Verified 11/27/22 16:29 rosuvastatin [From Crestor] AdvReac Other Verified 11/27/22 16:29 simvastatin AdvReac Pain in Verified 11/27/22 16:29 joints Family History Mother Asthma Heart disease Depression Psychiatric care CVA (cerebral vascular accident) Thyroid disorder History of ulcer disease Grandfather Myocardial infarction Heart disease Grandmother Myocardial infarction Heart disease CVA (cerebral vascular accident) Uncle Parkinson disease Sister Cancer Other Hypertension Surgical History H/O right breast biopsy H/O tubal ligation History of abdominal paracentesis Hx of breast biopsy Hx of hysterectomy Port-A-Cath in place Tubal ligation status Social History household members: family Smoking Status: Never smoker alcohol intake: never substance use type: does not use caffeine: Yes Type: carbonated beverages what type of physical activity do you participate in: none ROS ROS ED ROS Narrative Abdominal pain. Nausea and vomiting. Resolved. Review of Systems ROS Unobtainable: Denies due to encephalopathy Constitutional Constitutional ED: Denies chills or fever(s) ENT ENT ED: Denies ear pain Cardiovascular Cardiovascular: Denies chest pain Respiratory/Chest Respiratory/Chest: Denies cough or dyspnea Gastrointestinal Gastrointestinal: Reports abdominal pain, nausea and vomiting; Denies constipation, diarrhea or melena Genitourinary Genitourinary ED: Denies dysuria or hematuria Musculoskeletal Musculoskeletal: Denies arthralgias or back pain Integumentary Denies abscess or Abrasions Neurologic Neurologic: Denies headache(s) Psychiatric Psychiatric: Denies anxiety Endocrine Endocrinology: Denies polydipsia Hematologic/Lymphatic Hematologic/Lymphatic: Denies easy bleeding or easy bruising Allergic/Immunologic Allergic/Immunologic ED: Denies mouth swelling or tongue swelling EXAM Physical Exam Narrative Exam Narrative: 69-year-old female no acute distress. Vital signs stable afebrile. Daughter at bedside. Patient does not look septic or toxic. Clinically looks well. Currently is not having any pain. HEENT exam unremarkable. Moist extremities. Neck nontender. Lungs clear to auscultation bilaterally. Heart regular rhythm rate about 90 no murmur. Abdomen soft, nondistended normal bowel sounds no peritoneal signs. No signs of obstruction. He has very minimal left lower quadrant tenderness. She has an ostomy bag on the left. Well-healed midline abdominal surgical scar. Right upper right lower quadrant unremarkable. No hernia. No peritoneal signs. Moving all 4 extremities. She is awake and alert. Answer questions following commands. Const Vital Signs: 11/27/22 16:29 11/27/22 18:00 11/27/22 20:00 Temperature 97.5 F L Temperature Source Temporal Pulse Rate 90 81 79 Respiratory Rate 16 16 16 Blood Pressure 111/81 H 143/81 H 149/78 H Blood Pressure Mean 91 101 101 Pulse Ox 95 95 94 Oxygen Delivery Method Room Air Room Air Positive well nourished and well developed; Negative for cachectic, contractures or unkempt General Appearance ED: well developed and NAD; Negative for unkempt, cachectic or contractures Nutritional Appearance: Negative for cachectic HEENT Reports moist mucous membranes normocephalic and atraumatic; Negative for trauma or tenderness Eyes PERRL and EOMs intact bilaterally General Eye ED: Negative for pale conjunctiva or scleral icterus Neck no lymphadenopathy, supple and no JVD General: Negative for tenderness Lymph Lymphatic: Negative for other Resp normal respiratory effort and clear to auscultation bilaterally Effort and Inspection: Negative for respiratory distress Auscultation: Negative for rales, rhonchi or wheezes Cardio regular rate, regular rhythm, S1 normal heart sound, S2 normal heart sound and no murmurs Rate: Negative for bradycardia or tachycardic Rhythm: Negative for abnormal rhythm GI non-tender, non-distended and no masses Inspection: Negative for abdominal distention Auscultation: normoactive bowel sounds Palpation: soft; Negative for tender, guarding or rigid Back/Spine no CVA tenderness General Back: Negative for CVA tenderness Cervical Spine: Negative for cervical spine tenderness Thoracic Spine / Upper Back: Negative for thoracic spinal tenderness Lumbar Spine / Lower Back: Negative for lumbar spinal tenderness Coccyx: Negative for other Extremity full ROM General Extremety ED: Negative for edema or tenderness General Extremity: Negative for edema Neuro CN's II-XII intact bilaterally and moves all extremities Sensorium / Orientation: alert, oriented to person, oriented to place and oriented to time; Negative for orientation impaired, confused, lethargic or stuporous Motor Exam: strength 5/5 throughout; Negative for general weakness Psych mental status grossly normal and thought process normal Appearance: Negative for unkempt Attitude: No agitated Mood & Affect: Negative for depressed, anxious or tearful Skin no wounds General Skin Exam: Negative for jaundice Lesions: no lesions Rashes: no rashes Trauma: Negative for abrasion Nails: Negative for discolored MDM MDM MDM Narrative Medical decision making narrative: 77-year-old female known ovarian CA with abdominal mass complaining of abdominal pain this morning that is since resolved with nausea and vomiting that is since improved. She be treated with IV Zofran for nausea. Screening labs and CAT scan being obtained. At this time her abdomen is very benign I do not suspect an obstruction at this time. She does not want anything for pain at this time. Patient is doing well at 9:50 PM on repeat exam. Essentially benign. Her pain is much better after only 4 morphine and 4 Zofran. I discussed her care with our general surgeon on-call he looked at the patient's CAT scan he said she would be a surgical candidate here. She has had surgeries at [facility] for her initial diagnosis of ovarian cancer and also [facility] for colostomy. She does not want to be transferred tonight if it is the family. The says she absolutely would need surgery they would prefer to go to [place]. [facility] I will speak to the hospitalist. History & Record Review Discussion w/independent historian: Patient Additional record(s) reviewed:: Prior inpatient record, Prior outpatient record, Prior ED visit and Prior labs Lab Data Attestation: I reviewed the patient's lab results. Lab results narrative: BC shows a white count of 6.8. H&H 9.2 and 29 which is consistent with her baseline anemia. Platelets 123,000. Electrolytes show a gap of 6 BUN and creatinine 19 and 1.2. Glucose 116. Liver enzymes normal. Lipase normal at 15. Urine shows positive nitrates, no red cells 10-25 white cells 1+ bacteria. Sent for culture started on IV Rocephin. CAT scan of the abdomen shows partial small bowel obstruction with metastases. Labs: Laboratory Results - last 24 hr 11/27/22 11/27/22 17:55 21:36 WBC 6.8 RBC 2.92 L Hgb 9.2 L Hct 29.7 L MCV 101.7 H MCH 31.5 MCHC 31.0 L RDW Std Deviation 74.7 H RDW Coeff of Glenn 19.6 H Plt Count 123 L MPV 10.6 Immature Gran % (Auto) 1.500 H Neut % (Auto) 89.6 H Lymph % (Auto) 7.5 L [place] % (Auto) 0.9 Eos % (Auto) 0.1 Baso % (Auto) 0.4 Absolute Neuts (auto) 6.1 Absolute Lymphs (auto) 0.51 L Nucleated RBC % 0 Differential Comment SCANNED Sodium 137 Potassium 4.4 Chloride 106 Carbon Dioxide 25.0 Anion Gap 6 BUN 19 H Creatinine 1.24 H Estim Creat Clear Calc 42.84 Est GFR (MDRD) Af Amer 54 L Est GFR (MDRD) Non-Af 44 L BUN/Creatinine Ratio 15.3 Glucose 116 H Calcium 8.8 Total Bilirubin 0.60 AST 17 ALT 16 Alkaline Phosphatase 77 Total Protein 6.6 Albumin 2.8 L Globulin 3.8 Albumin/Globulin Ratio 0.7 L Lipase 15 Urine Color Yellow Urine Clarity Clear Urine pH 5.0 Ur Specific [place] 1.010 Urine Protein Negative Urine Glucose (UA) Normal Urine Ketones Negative Urine Occult Blood 10 H Urine Nitrite Positive H Urine Bilirubin Negative Urine Urobilinogen Normal Ur Leukocyte Esterase 100 H Urine RBC 0-5 SEEN Urine WBC 10-25 SEEN Ur Squamous Epith Cells 0 SEEN Urine Bacteria 1+ Urine Mucus 0 SEEN Radiography Diagnostic Testing: Clinical Impression(s) from Imaging Studies Abdomen/Pelvis CT 11/27/22 17:28 IMPRESSION: At least partial small bowel obstruction with transition in the lower abdomen. Colitis of the descending and sigmoid colon. Scattered ascites. Bilateral hydronephrosis without obstructing ureteral calculus. Increasing size of scattered low-attenuation hepatic lesions suspicious for metastatic disease. Electronically Signed: Abdulkadir Deleon MD at 19:41 EDT , Discharge Plan Dx/Rx/DC Orders Clinical Impression: History of ovarian cancer, Chronic anemia, History of diabetes mellitus, Abdominal pain, Partial obstruction of small intestine, Acute UTI Disposition Disposition: Acute Care [facility]
[2022-11-27] MEDS: 0.9% Normal Saline (1000mL) 1,000 ML 1000 ML IV (17:56)
[2022-11-27] MEDS: Ondansetron 4 MG/2 ML Vial IV (17:57)
[2022-11-27 18:00] VITALS: BP 143/81; PULSE 81; RESP 16; O2SAT 95
[2022-11-27 18:13] LABS: Absolute Lymphocyte Count 0.51 X10^3/uL (0.83-4.51); Absolute Neutrophil Count 6.1 X10^3/uL (2.0-7.7); Basophil# 0.03 X10^3/uL; Basophil% 0.4 % (0-1); Eosinophil# 0.01 X10^3/uL; Eosinophils% 0.1 % (0-5); Hematocrit 29.7 % (37-47); Hemoglobin 9.2 g/dL (12.0-15.0); Lymphocyte # 0.51 X10^3/ul (0.83-4.51); Lymphocyte % 7.5 % (19-41); Mean Corpuscular Hgb 31.5 pg (27.0-32.0); Mean Corpuscular Volume 101.7 fL (81-99); Mean Platelet Vol. 10.6 fl (6.2-12.0); Monocyte# 0.06 X10^3/uL; Monocyte% 0.9 % (0-10); NRBC Flagged by Analyzer 0 % (0-5); Neutrophil # 6.09 X10^3/uL (2.7-7.7); Neutrophil % 89.6 % (47-70); POSITIVE DIFFERENTIAL YES; POSITIVE MORPHOLOGY YES; Platelet Count 123 K/mm3 (150-450); RBC Distribution Width CV 19.6 % (11.6-14.6); RBC Distribution Width SD 74.7 fl (35.1-43.9); Red Blood Count 2.92 M/mm3 (4.2-5.4); White Blood Count 6.8 K/mm3 (4.4-11.0)
[2022-11-27 18:14] LABS: Differential Indicated SCAN CRITERIA MET
[2022-11-27 18:33] LABS: ALB/GLOB Ratio 0.7 RATIO (0.9-2.4); AST(SGOT) 17 U/L (15-37); Alanine Aminotransfer ALT/SGPT 16 U/L (13-56); Albumin, Serum 2.8 g/dL (3.2-5.0); Alkaline Phosphatase 77 U/L (45-117); Anion Gap 6 (5-15); BUN 19 mg/dL (7-18); BUN/Creat Ratio 15.3 RATIO (10-20); Calcium,Total 8.8 mg/dL (8.5-10.1); Chloride 106 mmol/L (98-107); Creatinine, Serum 1.24 mg/dL (0.55-1.02); EST Glomerular Filtration Rate 44 mL/min (>60); Est Glom Filt Rate - Afr Amer 54 mL/min (>60); Estimated Creatinine Clearance 42.84 ml/min; Globulin 3.8 g/dL (2.2-4.2); Glucose 116 mg/dL (74-106); Lipase 15 U/L (13-75); Potassium 4.4 mmol/L (3.5-5.1); Protein, Total 6.6 g/dL (6.4-8.2); Sodium Level 137 mmol/L (136-145)
[2022-11-27 18:35] LABS: Differential Comment SCANNED
[2022-11-27] MEDS: Morphine 4 MG/ML Syringe IV (18:50)
[2022-11-27 20:00] VITALS: BP 149/78; PULSE 79; RESP 16; O2SAT 94
[2022-11-27 21:39] LABS: Mucous, Urine 0 SEEN /hpf (<or=2+); Squamous Epithelial Cells - UA 0 SEEN /hpf (5-10)
[2022-11-27 21:47] LABS: Color, Urine Yellow (Yellow); Glucose, Dipstick Normal (Normal); Ketone-Dipstick Negative (Negative); Leukocyte Esterase-Dipstick 100 /ul (Negative); Nitrite-Dipstick Positive (Negative); Occult Blood-Urine 10 /ul (Negative); Protein-Dipstick Negative (Negative); Urine Bilirubin Dipstick Negative (Negative); Urine Clarity Clear (Clear); Urine Urobilinogen Normal (Normal)
[2022-11-27 21:56] LABS: White Blood Cells 10-25 SEEN /hpf (0-5)
[2022-11-27 21:57] LABS: Bacteria 1+ /hpf (None Seen); Red Blood Cells-Urine 0-5 SEEN /hpf (0-5)
--- NOTE | 2022-11-27 21:59 | PCM.HP.STD ---
HPI - General General Date of Admission: 11/27/22 Date of Service: 11/27/22 Chief Complaint: Partial SBO HPI Narrative YUNG GAUTHIER, is a 77 F with history of metastatic ovarian cancer, distal colonic obstruction s/p laparotomy and diverting colostomy on 09/22/2022, hypertension, depression and chronic pain who presented to [facility] ED on 11/27/2022 with worsening abdominal pain. Patient seen at bedside in the ED. Patient reported significant improvement in abdominal pain since receiving pain medication. She has continued to have fairly good ostomy output to this point. She denies any nausea at this time. She has not been able to eat any food today, has had minimal liquid intake. She denies any fevers or chills. Denies any other pain or discomfort. No other acute concerns. Vitals in ED unremarkable. Labs unremarkable. CT abdomen pelvis with IV contrast showed partial small bowel obstruction with transition in lower abdomen, as well as scattered ascites, colitis of descending and sigmoid colon, bilateral hydronephrosis and increasing size of known hepatic metastatic lesions. [facility] Medical History (Updated 11/27/22 @ 23:54 by Maria Victoria Jacobo) Anemia Anxiety Asthma Back pain Cancer Carotid stenosis, bilateral Cataracts, bilateral Cellulitis CINV (chemotherapy-induced nausea and vomiting) Colostomy in place Depression Diabetes Difficulty balancing Easy bruising Essential hypertension Fatty liver Fibromyalgia First degree AV block GERD (gastroesophageal reflux disease) Heart disease Herpes zoster High cholesterol History of diverticulitis History of ischemic stroke Hypertension Hypokalemia Inflammatory polyarthritis Leg cramps Low iron Mixed hyperlipidemia Myocardial infarct Non-smoker Osteopenia Ovarian cancer Pancytopenia Paroxysmal ventricular tachycardia PFO (patent foramen ovale) Restless legs Shortness of breath on exertion TIA (transient ischemic attack) Ventricular tachycardia seen on drapery counselor Walker as ambulation aid Wears dentures Home Medications rosuvastatin 5 mg tablet 5 mg PO SUMOWEFR CHOLESTEROL 01/01/21 [History Last Taken 12/05/21] sertraline 100 mg tablet 200 mg PO DAILY DEPRESSION 01/01/21 [History Last Taken 09/20/22] ropinirole 0.5 mg tablet 0.5 mg PO QHS RLS 12/06/21 [History Last Taken 12/05/21] gabapentin 600 mg tablet 600 mg PO BID 01/15/22 [History Last Taken 09/20/22] triamcinolone acetonide 0.025 % topical cream 1 applic topical DAILY PRN Rash 01/15/22 [History Last Taken Unknown] lidocaine-prilocaine 2.5 %-2.5 % topical cream 2.5 g topical ONCE #30 grams 04/23/22 [Rx Last Taken Unknown] prochlorperazine maleate 5 mg tablet 5 mg PO BID PRN Nausea 04/23/22 [History Last Taken Unknown] ibuprofen 200 mg capsule 600 mg PO TID PRN Pain 06/19/22 [History Last Taken Unknown] losartan 25 mg tablet 25 mg PO DAILY BLOOD PRESSURE 07/01/22 [History Last Taken 09/20/22] famotidine 20 mg tablet (Pepcid AC) 20 mg PO DAILY #60 tabs 09/11/22 [Rx Last Taken Unknown] ondansetron 8 mg disintegrating tablet 8 mg PO Q8H PRN Nausea #30 tabs 09/16/22 [Rx Last Taken Unknown] carvedilol 12.5 mg tablet (Coreg) 12.5 mg PO BID #20 tabs 09/29/22 [Rx Last Taken Unknown] diclofenac sodium 1 % topical gel 2 g topical BID #100 grams 11/21/22 [Rx Last Taken Unknown] Allergy/AdvReac Type Severity Reaction Status Date / Time aspirin AdvReac Mild Other Verified 11/27/22 16:29 lisinopril AdvReac Mild Other Verified 11/27/22 16:29 waldrop AdvReac Nausea/Vom/ Verified 11/27/22 16:29 Diarrhea ciprofloxacin AdvReac Vomiting Verified 11/27/22 16:29 methotrexate AdvReac Other Verified 11/27/22 16:29 rosuvastatin [From Crestor] AdvReac Other Verified 11/27/22 16:29 simvastatin AdvReac Pain in Verified 11/27/22 16:29 joints Family History Mother Asthma Heart disease Depression Psychiatric care CVA (cerebral vascular accident) Thyroid disorder History of ulcer disease Grandfather Myocardial infarction Heart disease Grandmother Myocardial infarction Heart disease CVA (cerebral vascular accident) Uncle Parkinson disease Sister Cancer Other Hypertension Surgical History H/O right breast biopsy H/O tubal ligation History of abdominal paracentesis Hx of breast biopsy Hx of hysterectomy Port-A-Cath in place Tubal ligation status Social History household members: family Smoking Status: Never smoker alcohol intake: never substance use type: does not use caffeine: Yes Type: carbonated beverages what type of physical activity do you participate in: none ROS Constitutional Constitutional: Denies chills, fatigue, fever(s) or weakness Eyes Eyes: Denies change in vision Cardiovascular Cardiovascular: Denies chest pain Respiratory/Chest Respiratory/Chest: Denies cough Gastrointestinal Gastrointestinal: Reports abdominal pain, nausea and vomiting Genitourinary Genitourinary: Denies dysuria Vital Signs Vital Signs Vital Signs: 11/27/22 16:29 11/27/22 18:00 11/27/22 20:00 Temperature 97.5 F L Temperature Source Temporal Pulse Rate 90 81 79 Respiratory Rate 16 16 16 Blood Pressure 111/81 H 143/81 H 149/78 H Blood Pressure Mean 91 101 101 Pulse Ox 95 95 94 Oxygen Delivery Method Room Air Room Air Weight Weight: 72.575 kg Body Mass Index (BMI) 32.3 Physical Exam Const alert and oriented x3 Constitutional Narrative: Pleasant elderly female, obese, sitting comfortably in bed, conversing normally, no acute distress. General Appearance: cooperative, comfortable, well kempt and well developed HEENT normocephalic, head/scalp atraumatic, hearing grossly normal bilaterally, nasal mucous membranes and turbinates normal and moist oral mucous membranes Eyes PERRL, EOMs intact bilaterally and conjunctivae normal Neck full ROM, no lymphadenopathy and supple Lymph Lymphatic: no lymphadenopathy noted Chest inspection of chest normal Resp normal respiratory effort, normal air movement, no use of accessory muscles and clear to auscultation bilaterally Cardio regular rate, regular rhythm, no murmurs and peripheral pulses 2+ throughout GI GI Narrative: Ostomy bag in place without issue. Abdomen soft and nondistended, nontender to palpation. Back/Spine normal ROM Extremity normal to inspection, full ROM and no pedal edema Skin no rashes or lesions noted Psych mental status grossly normal Results Lab / Micro Data 11/27/22 17:55 11/27/22 17:55 Labs: Laboratory Results - last 24 hr 11/27/22 17:55: WBC 6.8, RBC 2.92 L, Hgb 9.2 L, Hct 29.7 L, MCV 101.7 H, MCH 31.5, MCHC 31.0 L, RDW Std Deviation 74.7 H, RDW Coeff of Glenn 19.6 H, Plt Count 123 L, MPV 10.6, Immature Gran % (Auto) 1.500 H, Neut % (Auto) 89.6 H, Lymph % (Auto) 7.5 L, [place] % (Auto) 0.9, Eos % (Auto) 0.1, Baso % (Auto) 0.4, Absolute Neuts (auto) 6.1, Absolute Lymphs (auto) 0.51 L, Nucleated RBC % 0, Differential Comment SCANNED, Sodium 137, Potassium 4.4, Chloride 106, Carbon Dioxide 25.0, Anion Gap 6, BUN 19 H, Creatinine 1.24 H, Estim Creat Clear Calc 42.84, Est GFR (MDRD) Af Amer 54 L, Est GFR (MDRD) Non-Af 44 L, BUN/Creatinine Ratio 15.3, Glucose 116 H, Calcium 8.8, Total Bilirubin 0.60, AST 17, ALT 16, Alkaline Phosphatase 77, Total Protein 6.6, Albumin 2.8 L, Globulin 3.8, Albumin/Globulin Ratio 0.7 L, Lipase 15 11/27/22 21:36: Urine Color Yellow, Urine Clarity Clear, Urine pH 5.0, Ur Specific [place] 1.010, Urine Protein Negative, Urine Glucose (UA) Normal, Urine Ketones Negative, Urine Occult Blood 10 H, Urine Nitrite Positive H, Urine Bilirubin Negative, Urine Urobilinogen Normal, Ur Leukocyte Esterase 100 H, Urine RBC 0-5 SEEN, Urine WBC 10-25 SEEN, Ur Squamous Epith Cells 0 SEEN, Urine Bacteria 1+, Urine Mucus 0 SEEN Radiology Impression Abdomen/Pelvis CT 11/27/22 17:28 IMPRESSION: At least partial small bowel obstruction with transition in the lower abdomen. Colitis of the descending and sigmoid colon. Scattered ascites. Bilateral hydronephrosis without obstructing ureteral calculus. Increasing size of scattered low-attenuation hepatic lesions suspicious for metastatic disease. Electronically Signed: Abdulkadir Deleon MD at 19:41 EDT , Assessment & Plan Assessment/Plan (1) Partial obstruction of small intestine: PLAN: Plan Patient is a 77-year-old female with history of metastatic ovarian cancer, distal colonic obstruction s/p laparotomy and diverting colostomy on 09/22/2022, hypertension, depression and chronic pain who presented to [facility] ED on 11/27/2022 with worsening abdominal pain. 1. Partial small bowel obstruction, recent distal colonic obstruction s/p laparotomy and diverting colostomy placement Presumed secondary to known metastatic ovarian cancer. CT abdomen pelvis with IV contrast showed partial small bowel obstruction with transition in lower abdomen, as well as scattered ascites, colitis of descending and sigmoid colon, bilateral hydronephrosis and increasing size of known hepatic metastatic lesions. Patient notably has had good output into her colostomy bag up to this point. ? Admit under observation to PCU. ED discussed with on-call general surgery, noted the patient does not urgently require surgery at this time. Notably, patient's previous surgeries after initial diagnosis of ovarian cancer as well as recent colostomy placement were done at [facility]. Patient requested admission here with the hope that she could avoid a procedure. However, if she does need a procedure, she would prefer to be transferred to [facility]. General surgery formally consulted. Advance diet as tolerated. Monitor closely. 2. Metastatic ovarian cancer Follows with Dr. Smyth with Oncology. Last office visit on 11/21/2022. Initially diagnosed with cancer in 12/2020. See office note from 11/21 for full cancer history. This recent visit was in anticipation of her beginning palliative chemotherapy with Doxil. She had no other acute concerns at that time. ? No inpatient oncology needs. Continue outpatient follow-up. Chronic medical conditions: ? Hypertension: Continue home losartan and carvedilol. ? Hyperlipidemia: Continue home statin. ? Chronic pain: Continue home gabapentin. ? Depression: Continue home sertraline. DVT prophylaxis: Lovenox CODE STATUS: DNR CCA, DO NOT INTUBATE Expected disposition: Home, TBD Total clinical time spent by myself addressing the patient's medical issues, reviewing all the data, and collaborating with patient's care team: 55 minutes. Charges/Coding Visit Charges Inpatient E&M: 15370 Init Hosp L2
[2022-11-27] MEDS: Ceftriaxone 1 GM/50 ML BAG IV (22:27)
[2022-11-27 22:33] VITALS: BP 124/65; PULSE 77; RESP 18; TEMP 37.4; O2SAT 92
[2022-11-27 23:24] VITALS: BMI 32.5
[2022-11-27 23:25] VITALS: BP 107/61; PULSE 74; RESP 16; TEMP 37.1; O2SAT 96
[2022-11-27 23:46] VITALS: O2SAT 96
[2022-11-28] MEDS: Atorvastatin Calcium 10 MG Tablet PO (00:25)
[2022-11-28] MEDS: Pramipexole Di-HCl 0.25 MG Tablet PO (00:25)
[2022-11-28] MEDS: Gabapentin 600 MG Tablet PO ×2 (00:25→10:26)
[2022-11-28 05:00] VITALS: BP 101/60; PULSE 65; RESP 16; TEMP 36.6; O2SAT 96
[2022-11-28 07:46] VITALS: O2SAT 96
--- NOTE | 2022-11-28 07:46 | PN.HOSP_ITS ---
Reason for Visit Reason for Visit: Diagnoses Partial intestinal obstruction, unspecified as to cause (11/27/22) Subjective Subjective Patient is a 77-year-old female with history of metastatic ovarian cancer, distal colonic obstruction s/p laparotomy and diverting colostomy on 09/22/2022, hypertension, depression and chronic pain who presented to [facility] ED on 11/27/2022 with worsening abdominal pain. Objective Data Objective Data Vital Signs: Vital Signs Temp Pulse Resp BP Pulse Ox O2 Del Method 98 F 65 16 101/60 96 Room Air 11/28/22 05:00 11/28/22 05:00 11/28/22 05:00 11/28/22 05:00 11/28/22 05:00 11/28/22 05:00 Oxygen Delivery Method Room Air Weight: 73 kg Body Mass Index (BMI) 32.5 Intake & Output: Intake and Output for Last 24 Hours 11/26/22 11/27/22 11/28/22 23:59 23:59 23:59 Intake Total 1050 / 1050 Balance 1050 / 1050 Lab / Micro Data 11/27/22 17:55 11/27/22 17:55 Labs: Laboratory Results - last 24 hr 11/27/22 17:55: WBC 6.8, RBC 2.92 L, Hgb 9.2 L, Hct 29.7 L, MCV 101.7 H, MCH 31.5, MCHC 31.0 L, RDW Std Deviation 74.7 H, RDW Coeff of Glenn 19.6 H, Plt Count 123 L, MPV 10.6, Immature Gran % (Auto) 1.500 H, Neut % (Auto) 89.6 H, Lymph % (Auto) 7.5 L, [place] % (Auto) 0.9, Eos % (Auto) 0.1, Baso % (Auto) 0.4, Absolute Neuts (auto) 6.1, Absolute Lymphs (auto) 0.51 L, Nucleated RBC % 0, Differential Comment SCANNED, Sodium 137, Potassium 4.4, Chloride 106, Carbon Dioxide 25.0, Anion Gap 6, BUN 19 H, Creatinine 1.24 H, Estim Creat Clear Calc 42.84, Est GFR (MDRD) Af Amer 54 L, Est GFR (MDRD) Non-Af 44 L, BUN/Creatinine Ratio 15.3, Glucose 116 H, Calcium 8.8, Total Bilirubin 0.60, AST 17, ALT 16, Alkaline Phosphatase 77, Total Protein 6.6, Albumin 2.8 L, Globulin 3.8, Albumin/Globulin Ratio 0.7 L, Lipase 15 11/27/22 21:36: Urine Color Yellow, Urine Clarity Clear, Urine pH 5.0, Ur Specific [place] 1.010, Urine Protein Negative, Urine Glucose (UA) Normal, Urine Ketones Negative, Urine Occult Blood 10 H, Urine Nitrite Positive H, Urine Bilirubin Negative, Urine Urobilinogen Normal, Ur Leukocyte Esterase 100 H, Urine RBC 0-5 SEEN, Urine WBC 10-25 SEEN, Ur Squamous Epith Cells 0 SEEN, Urine Bacteria 1+, Urine Mucus 0 SEEN Radiography Diagnostic Testing: Radiology Impression Abdomen/Pelvis CT 11/27/22 17:28 IMPRESSION: At least partial small bowel obstruction with transition in the lower abdomen. Colitis of the descending and sigmoid colon. Scattered ascites. Bilateral hydronephrosis without obstructing ureteral calculus. Increasing size of scattered low-attenuation hepatic lesions suspicious for metastatic disease. Electronically Signed: Abdulkadir Deleon MD at 19:41 EDT Reading Location ID and State: [facility] / [place] Tel , Service support , Physical Exam Narrative GENERAL: cooperative HEENT: Atraumatic; normocephalic EYES; Anicteric, Normal Conjunctiva NECK; supple, normal thyroid, RESPIRATORY: Diminished to auscultation CARDIOVASCULAR: Regular S1 S2, GI: soft, normoactive bowel sounds, : No Renal angle tenderness; EXTREMITIES: No edema, no clubbing, MUSCULOSKELETAL: no muscle wasting NEURO: Awake; no lateralizing signs. SKIN: No Rash PSYCH; Flat affect Assessment & Plan Assessment/Plan (1) Partial obstruction of small intestine: PLAN: Plan Patient is a 77-year-old female with history of metastatic ovarian cancer, distal colonic obstruction s/p laparotomy and diverting colostomy on 09/22/2022, hypertension, depression and chronic pain who presented to [facility] ED on 11/27/2022 with worsening abdominal pain. 1. Partial small bowel obstruction ? In a patient with recent distal colonic obstruction with laparotomy and diverting colostomy. Admitted to a monitored bed managed conservatively with bowel rest. Did improve subsequently started on clear liquid which has been advanced as tolerated 2. Metastatic ovarian CA ? Patient is managed by Dr Lunsford with oncology currently on outpatient palliative chemotherapy 3. Hypertension - Blood pressure controlled, home medications continued with dose adjustment as needed 4. Dyslipidemia -Patient is on rosuvastatin continued 5. Depression ? Patient is on sertraline continue 6. Chronic pain ? Patient is on gabapentin continued 7. Acute cystitis ? Patient started on p.o. cefdinir culture sent we will await results 8. DVT prophylaxis ? SC Lovenox CODE STATUS DNR CCA no intubation Time spent in the patient's overall evaluation,decision-making process, review of diagnostic data, adjustment of management, discussion with other providers, nursing nursing and ancillary staff involved in patient's care documentation, 50 Minutes Charges/Coding Visit Charges Inpatient E&M: 14203 [facility] Hosp L3
--- NOTE | 2022-11-28 08:13 | CON.PCM.SX_ITS ---
Assessment & Plan Assessment/Plan (1) Partial obstruction of small intestine: PLAN: The patient was vomiting. She had surgery in September for diverting colostomy due to obstruction from ovarian cancer. Reviewing her CT scan it appears that she has a partial obstruction of the small bowel proximal to the ileocecal valve. I am unsure that this will resolve on its own but she is passing stool through her colostomy bag. She has ordered diet as tolerated but if she does not tolerate a diet I recommend transfer back to her original hospital [facility] for management of her recurrent obstruction. Isaiah Allen MD Pager: [facility] [address] [place] [address] [address] [place], [address] [place] [address] Office: HPI Consult Data Date of Consult: 11/28/22 HPI Narrative HPI Narrative: YUNG GAUTHIER, is a 77 F who presents with vomiting. The patient said that yesterday when she came to the emergency room she was having abdominal pain and vomiting. Today she says she is not having any abdominal pain and she is not nauseous. [facility] Medical History (Updated 11/27/22 @ 23:54 by Maria Victoria Jacobo) Anemia Anxiety Asthma Back pain Cancer Carotid stenosis, bilateral Cataracts, bilateral Cellulitis CINV (chemotherapy-induced nausea and vomiting) Colostomy in place Depression Diabetes Difficulty balancing Easy bruising Essential hypertension Fatty liver Fibromyalgia First degree AV block GERD (gastroesophageal reflux disease) Heart disease Herpes zoster High cholesterol History of diverticulitis History of ischemic stroke Hypertension Hypokalemia Inflammatory polyarthritis Leg cramps Low iron Mixed hyperlipidemia Myocardial infarct Non-smoker Osteopenia Ovarian cancer Pancytopenia Paroxysmal ventricular tachycardia PFO (patent foramen ovale) Restless legs Shortness of breath on exertion TIA (transient ischemic attack) Ventricular tachycardia seen on dewer Walker as ambulation aid Wears dentures Home Medications rosuvastatin 5 mg tablet 5 mg PO SUMOWEFR CHOLESTEROL 01/01/21 [History Last Taken 12/05/21] sertraline 100 mg tablet 200 mg PO DAILY DEPRESSION 01/01/21 [History Last Taken 09/20/22] ropinirole 0.5 mg tablet 0.5 mg PO QHS RLS 12/06/21 [History Last Taken 12/05/21] gabapentin 600 mg tablet 600 mg PO BID 01/15/22 [History Last Taken 09/20/22] triamcinolone acetonide 0.025 % topical cream 1 applic topical DAILY PRN Rash 01/15/22 [History Last Taken Unknown] lidocaine-prilocaine 2.5 %-2.5 % topical cream 2.5 g topical ONCE #30 grams 04/23/22 [Rx Last Taken Unknown] prochlorperazine maleate 5 mg tablet 5 mg PO BID PRN Nausea 04/23/22 [History Last Taken Unknown] ibuprofen 200 mg capsule 600 mg PO TID PRN Pain 06/19/22 [History Last Taken Unknown] losartan 25 mg tablet 25 mg PO DAILY BLOOD PRESSURE 07/01/22 [History Last Taken 09/20/22] famotidine 20 mg tablet (Pepcid AC) 20 mg PO DAILY #60 tabs 09/11/22 [Rx Last Taken Unknown] ondansetron 8 mg disintegrating tablet 8 mg PO Q8H PRN Nausea #30 tabs 09/16/22 [Rx Last Taken Unknown] carvedilol 12.5 mg tablet (Coreg) 12.5 mg PO BID #20 tabs 09/29/22 [Rx Last Taken Unknown] diclofenac sodium 1 % topical gel 2 g topical BID #100 grams 11/21/22 [Rx Last Taken Unknown] Allergy/AdvReac Type Severity Reaction Status Date / Time aspirin AdvReac Mild Other Verified 11/27/22 16:29 lisinopril AdvReac Mild Other Verified 11/27/22 16:29 waldrop AdvReac Nausea/Vom/ Verified 11/27/22 16:29 Diarrhea ciprofloxacin AdvReac Vomiting Verified 11/27/22 16:29 methotrexate AdvReac Other Verified 11/27/22 16:29 rosuvastatin [From Crestor] AdvReac Other Verified 11/27/22 16:29 simvastatin AdvReac Pain in Verified 11/27/22 16:29 joints Family History Mother Asthma Heart disease Depression Psychiatric care CVA (cerebral vascular accident) Thyroid disorder History of ulcer disease Grandfather Myocardial infarction Heart disease Grandmother Myocardial infarction Heart disease CVA (cerebral vascular accident) Uncle Parkinson disease Sister Cancer Other Hypertension Surgical History H/O right breast biopsy H/O tubal ligation History of abdominal paracentesis Hx of breast biopsy Hx of hysterectomy Port-A-Cath in place Tubal ligation status Social History household members: family Smoking Status: Never smoker alcohol intake: never substance use type: does not use caffeine: Yes Type: carbonated beverages what type of physical activity do you participate in: none ROS Constitutional Constitutional: Denies anorexia, chills or fatigue Eyes Eyes: Denies blurry vision ENT HEENT: Denies abnormal hearing Respiratory/Chest Respiratory/Chest: Denies cough or dyspnea Gastrointestinal Gastrointestinal: Reports abdominal pain, nausea and vomiting Genitourinary Genitourinary: Denies change in urinary stream Musculoskeletal Musculoskeletal: Denies abnormal gait Integumentary Integumentary: Denies jaundice Psychiatric Psychiatric: Denies anxiety Endocrine Endocrinology: Denies flushing Hematologic/Lymphatic Hematologic/Lymphatic: Denies easy bleeding Physical Exam Const alert and oriented x3 HEENT normocephalic Resp normal respiratory effort Cardio Rate: regular rate Rhythm: regular rhythm GI soft to palpation and non-tender Skin no rashes or lesions noted Neuro CN's II-XII intact bilaterally Lab / Micro Data 11/27/22 17:55 11/27/22 17:55 Labs: Laboratory Results - last 24 hr 11/27/22 17:55: WBC 6.8, RBC 2.92 L, Hgb 9.2 L, Hct 29.7 L, MCV 101.7 H, MCH 31.5, MCHC 31.0 L, RDW Std Deviation 74.7 H, RDW Coeff of Glenn 19.6 H, Plt Count 123 L, MPV 10.6, Immature Gran % (Auto) 1.500 H, Neut % (Auto) 89.6 H, Lymph % (Auto) 7.5 L, [place] % (Auto) 0.9, Eos % (Auto) 0.1, Baso % (Auto) 0.4, Absolute Neuts (auto) 6.1, Absolute Lymphs (auto) 0.51 L, Nucleated RBC % 0, Differential Comment SCANNED, Sodium 137, Potassium 4.4, Chloride 106, Carbon Dioxide 25.0, Anion Gap 6, BUN 19 H, Creatinine 1.24 H, Estim Creat Clear Calc 42.84, Est GFR (MDRD) Af Amer 54 L, Est GFR (MDRD) Non-Af 44 L, BUN/Creatinine Ratio 15.3, Glu cose 116 H, Calcium 8.8, Total Bilirubin 0.60, AST 17, ALT 16, Alkaline Phosphatase 77, Total Protein 6.6, Albumin 2.8 L, Globulin 3.8, Albumin/Globulin Ratio 0.7 L, Lipase 15 11/27/22 21:36: Urine Color Yellow, Urine Clarity Clear, Urine pH 5.0, Ur Specific [place] 1.010, Urine Protein Negative, Urine Glucose (UA) Normal, Urine Ketones Negative, Urine Occult Blood 10 H, Urine Nitrite Positive H, Urine Bilirubin Negative, Urine Urobilinogen Normal, Ur Leukocyte Esterase 100 H, Urine RBC 0-5 SEEN, Urine WBC 10-25 SEEN, Ur Squamous Epith Cells 0 SEEN, Urine Bacteria 1+, Urine Mucus 0 SEEN Radiology Impression Abdomen/Pelvis CT 11/27/22 17:28 IMPRESSION: At least partial small bowel obstruction with transition in the lower abdomen. Colitis of the descending and sigmoid colon. Scattered ascites. Bilateral hydronephrosis without obstructing ureteral calculus. Increasing size of scattered low-attenuation hepatic lesions suspicious for metastatic disease. Electronically Signed: Abdulkadir Deleon MD at 19:41 EDT ,
[2022-11-28 10:18] VITALS: BP 111/62; PULSE 71; RESP 16; TEMP 36.9; O2SAT 95
[2022-11-28] MEDS: Enoxaparin 40 MG/0.4 ML Syringe SC (10:25)
[2022-11-28] MEDS: Famotidine 20 MG Tablet PO (10:26)
[2022-11-28] MEDS: Sertraline 100 MG Tablet 200 MG PO (10:26)
[2022-11-28] MEDS: Cefdinir 300 MG Capsule PO (10:26)
[2022-11-28] MEDS: Flu Vacc QS2023-24(65YR UP)/PF 240 MCG/0.7 ML Syringe IM (10:31)
[2022-11-28] MEDS: Ensure Plus High Protein 120 ML LIQUID PO (13:24)
--- NOTE | 2022-11-28 13:58 | CHAPLAIN ---
Type of Pastoral Visit _x__ Initial Visit ___ Follow-up Visit ___ On-call Visit ___ General Patient Visit ___ Spiritual Assessment ___ Family Conference ___ Bereavement ___ Rapid Response ___ Code Blue ___ Other (describe below) Pastoral Care Referral From _x__ Patient ___ Family ___ Nurse ___ Physician ___ Tin Can Feeder ___ [employer] Management [employer] ___ Other (describe below) Sacrament/Intervention _x__ Active listening ___ Anointing ___ Holiness ___ Bereavement ___ Communion _x__ Nhi exploration ___ _x__ Life review _x__ Prayer ___ Reconciliation ___ Sacrament of Sick _x__ Supportive presence ___ Wedding ___ Other (describe below) Pastoral Comments patient talks openly and willingly about her cancer diagnosis and admits to having had a new perspective on nhi in God through an encounter with roxanna;
--- NOTE | 2022-11-28 14:53 | PCM.DC.SUM ---
Providers Date of Admission: 11/27/22 Date of Discharge: 11/28/22 Primary Care Physician: Dr. Magi Farmer MD Consultations 11/27/22 23:19 Consult: General Surgery Routine Consulting Provider: Isaiah Allen Reason for Consult: Partial SBO EMERGENT Consult: No MD Notified: Yes Date Notified: 11/28/22 Time Notified: 06:56 Method of Notification: Text Reason For Visit: PARTIAL SBO Diagnosis Discharge Diagnosis (1) Partial obstruction of small intestine: Status: Acute Code(s): K56.600 - Partial intestinal obstruction, unspecified as to cause Plan Patient is a 77-year-old female with history of metastatic ovarian cancer, distal colonic obstruction s/p laparotomy and diverting colostomy on 09/22/2022, hypertension, depression and chronic pain who presented to [facility] ED on 11/27/2022 with worsening abdominal pain. 1. Partial small bowel obstruction ? In a patient with recent distal colonic obstruction with laparotomy and diverting colostomy. Admitted to a monitored bed managed conservatively with bowel rest. Did improve subsequently started on clear liquid which has been advanced as tolerated 2. Metastatic ovarian CA ? Patient is managed by Dr Lunsford with oncology currently on outpatient palliative chemotherapy 3. Hypertension - Blood pressure controlled, home medications continued with dose adjustment as needed 4. Dyslipidemia -Patient is on rosuvastatin continued 5. Depression ? Patient is on sertraline continue 6. Chronic pain ? Patient is on gabapentin continued 7. Acute cystitis ? Patient started on p.o. cefdinir culture sent we will await results 8. DVT prophylaxis ? SC Lovenox CODE STATUS DNR CCA no intubation Time spent in the patient's overall evaluation,decision-making process, review of diagnostic data, adjustment of management, discussion with other providers, nursing nursing and ancillary staff involved in patient's care documentation, 35 Medications at Discharge Home Medications rosuvastatin 5 mg tablet 5 mg PO SUMOWEFR CHOLESTEROL 01/01/21 sertraline 100 mg tablet 200 mg PO DAILY DEPRESSION 01/01/21 ropinirole 0.5 mg tablet 0.5 mg PO QHS RLS 12/06/21 gabapentin 600 mg tablet 600 mg PO BID 01/15/22 triamcinolone acetonide 0.025 % topical cream 1 applic topical DAILY PRN Rash 01/15/22 lidocaine-prilocaine 2.5 %-2.5 % topical cream 2.5 g topical ONCE #30 grams 04/23/22 prochlorperazine maleate 5 mg tablet 5 mg PO BID PRN Nausea 04/23/22 ibuprofen 200 mg capsule 600 mg PO TID PRN Pain 06/19/22 losartan 25 mg tablet 25 mg PO DAILY BLOOD PRESSURE 07/01/22 famotidine 20 mg tablet (Pepcid AC) 20 mg PO DAILY #60 tabs 09/11/22 ondansetron 8 mg disintegrating tablet 8 mg PO Q8H PRN Nausea #30 tabs 09/16/22 carvedilol 12.5 mg tablet (Coreg) 12.5 mg PO BID #20 tabs 09/29/22 diclofenac sodium 1 % topical gel 2 g topical BID #100 grams 11/21/22 cefdinir 300 mg capsule 300 mg PO Q12 #10 caps 11/28/22 food supplemt, lactose-reduced 0.08 gram-1.5 kcal/mL oral liquid (Ensure Plus High Protein) 120 ml PO TIDCM #90 BOTTLES 11/28/22 Physical Exam Narrative GENERAL: cooperative HEENT: Atraumatic; normocephalic EYES; Anicteric, Normal Conjunctiva NECK; supple, normal thyroid, RESPIRATORY: Diminished to auscultation CARDIOVASCULAR: Regular S1 S2, GI: soft, normoactive bowel sounds, : No Renal angle tenderness; EXTREMITIES: No edema, no clubbing, MUSCULOSKELETAL: no muscle wasting NEURO: Awake; no lateralizing signs. SKIN: No Rash PSYCH; Flat affect Medical Records Data Medical Nutrition Assessment Dietitian: Malnutrition Criteria Met Start: 11/28/22 11:39 Freq: Status: Active Protocol: Document 11/28/22 11:39 RMA (Rec: 11/28/22 11:39 RMA Desktop) Nutrition Malnutrition Evidence of Malnutrition Exists Yes Malnutrition (severe): Chronic Evidenced By Suboptimal Energy Intake ( Severe),Weight Loss (Severe) Intake Problem Inadequate Oral Intake Etiology related to metastatic disease/ chemo, altered GI function/ obstruction and poor appetite Signs/Symptoms as evidenced by PO meeting less than 50% estimated nutrition needs Status Active Problem Clinical Problem Chronic Disease or Condition Related Malnutrition Etiology Severe protein-calorie malnutrition in the context of chronic metastatic disease related to increased energy expenditure, altered GI function/diarrhea and inadequate oral intake Signs/Symptoms as evidenced by ~10-11% weight loss x 6 months and PO meeting less than 50% estimated nutrition needs Status Active Problem Recommendation Dietitian Recommendations/Changes Will continue liberalized regular diet as tolerated. Will add 120mL ensure plus high protein TID w/ medpass as tolerated. Adjust ONS as needed once PO established with meals. Weight / BMI Weight Weight: 73 kg Body Mass Index (BMI) 32.5 ABG / Lab / Microbiology Data 11/27/22 17:55 11/27/22 17:55 Laboratory: Laboratory Results - last 24 hr 11/27/22 17:55: WBC 6.8, RBC 2.92 L, Hgb 9.2 L, Hct 29.7 L, MCV 101.7 H, MCH 31.5, MCHC 31.0 L, RDW Std Deviation 74.7 H, RDW Coeff of Glenn 19.6 H, Plt Count 123 L, MPV 10.6, Immature Gran % (Auto) 1.500 H, Neut % (Auto) 89.6 H, Lymph % (Auto) 7.5 L, Gilliam % (Auto) 0.9, Eos % (Auto) 0.1, Baso % (Auto) 0.4, Absolute Neuts (auto) 6.1, Absolute Lymphs (auto) 0.51 L, Nucleated RBC % 0, Differential Comment SCANNED, Sodium 137, Potassium 4.4, Chloride 106, Carbon Dioxide 25.0, Anion Gap 6, BUN 19 H, Creatinine 1.24 H, Estim Creat Clear Calc 42.84, Est GFR (MDRD) Af Amer 54 L, Est GFR (MDRD) Non-Af 44 L, BUN/Creatinine Ratio 15.3, Glucose 116 H, Calcium 8.8, Total Bilirubin 0.60, AST 17, ALT 16, Alkaline Phosphatase 77, Total Protein 6.6, Albumin 2.8 L, Globulin 3.8, Albumin/Globulin Ratio 0.7 L, Lipase 15 11/27/22 21:36: Urine Color Yellow, Urine Clarity Clear, Urine pH 5.0, Ur Specific [place] 1.010, Urine Protein Negative, Urine Glucose (UA) Normal, Urine Ketones Negative, Urine Occult Blood 10 H, Urine Nitrite Positive H, Urine Bilirubin Negative, Urine Urobilinogen Normal, Ur Leukocyte Esterase 100 H, Urine RBC 0-5 SEEN, Urine WBC 10-25 SEEN, Ur Squamous Epith Cells 0 SEEN, Urine Bacteria 1+, Urine Mucus 0 SEEN Radiography Diagnostic Testing: Radiology Impression Abdomen/Pelvis CT 11/27/22 17:28 IMPRESSION: At least partial small bowel obstruction with transition in the lower abdomen. Colitis of the descending and sigmoid colon. Scattered ascites. Bilateral hydronephrosis without obstructing ureteral calculus. Increasing size of scattered low-attenuation hepatic lesions suspicious for metastatic disease. Electronically Signed: Abdulkadir Deleon MD at 19:41 EDT Reading Location ID and State: [facility] / [place] Tel , Service support , D/C Instructions Discharge Diet: No restrictions Discharge Activity: Return to Normal Activity Call your doctor if you observe: Fever of 101 or Higher, Shortness of breath, Fainting spells and Chest pain Meaningful Use Info Meaningful Use Diagnoses (Choose all that apply): None applicable Discharge Plan Admission Admit Date/Time: 11/27/22 22:29 Attending Provider: Cipriano Cordova Primary Care Provider: Magi Farmer Consulting Providers: Alphonso Zhang; Isaiah Allen Discharge Orders/Prescriptions Prescriptions: New cefdinir 300 mg Capsule 300 mg PO Q12 Qty: 10 0RF Ensure Plus High Protein 0.08 gram-1.5 kcal/mL Liquid 120 ml PO TIDCM Qty: 90 0RF Continued rosuvastatin 5 mg tablet 5 mg PO SUMOWEFR Rx Instructions: patient takes 4 times a week losartan 25 mg tablet 25 mg PO DAILY gabapentin 600 mg tablet 600 mg PO BID triamcinolone acetonide 0.025 % cream 1 applic topical DAILY PRN (Reason: Rash) ibuprofen 200 mg capsule 600 mg PO TID PRN (Reason: Pain) prochlorperazine maleate 5 mg tablet 5 mg PO BID PRN (Reason: Nausea) lidocaine-prilocaine 2.5-2.5 % cream 2.5 g topical ONCE Qty: 30 1RF famotidine [Pepcid AC] 20 mg tablet 20 mg PO DAILY Qty: 60 0RF diclofenac sodium 1 % gel 2 g topical BID Qty: 100 1RF Rx Instructions: Apply topically to hands and feet twice daily sertraline 100 mg tablet 200 mg PO DAILY Patient Comments: DEPRESSION ropinirole 0.5 mg tablet 0.5 mg PO QHS carvedilol [Coreg] 12.5 mg tablet 12.5 mg PO BID Qty: 20 0RF Rx Instructions: must administer with a meal/food ondansetron 8 mg tablet,disintegrating 8 mg PO Q8H PRN (Reason: Nausea) Qty: 30 2RF Referrals / Follow Up: Magi Farmer MD [Primary Care Provider] - Within 1 Week Disposition Disposition (needs filled in before D/C Order can be placed): Home, Self Care Charges/Coding Visit Charges Inpatient E&M: 76324 Disch Hosp >30min
--- NOTE | 2022-11-28 15:20 | CASEMGMT ---
TONYA BLAKELY NOTE: Per Dr Cordova, pt discharging home today. TONYA BLAKELY to room. Pt resting in bed. Awake/alert/oriented. Pt states she lives w/her dtr, Ira, STEPHON, and granddaughter. She states she is independent w/ADL's and manages her own medications. She and family share home mgnt tasks. Her family works during the day so she is home alone and interested in medical alert button. Information provided. Ira changes her colostomy bag and does most of the care, but pt states she can do it, if needed. Pt does not drive and states either Ira or friends will assist w/transportation. Pt has a walker and cane @ home that she uses sometimes. She declines wanting HHC and denies having any further discharge planning needs or concerns. Paige TIJERINA RN CM
[2022-11-28 16:24] VITALS: BP 121/74; PULSE 75; RESP 16; TEMP 36.8; O2SAT 95
[2022-11-28] MEDS: 0.9% Saline Lock 10 ML Syringe IV (16:46)
== END 2022-11-28 15:17 | disposition home or self-care (01) ==
LOC: ED 22:03 → PCU 22:28
PROVIDERS: Admitting Provider Hospitalist; Emergency Provider Emergency Medicine; PCP Family Medicine; Visit Provider Internal Medicine
DX: K56.600 Partial intestinal obstruction, unspecified as to cause (principal); C56.9 Malignant neoplasm of unspecified ovary; Z93.3 Colostomy status; E11.9 Type 2 diabetes mellitus without complications; I10 Essential (primary) hypertension; M79.7 Fibromyalgia; E78.00 Pure hypercholesterolemia, unspecified; F32.A Depression, unspecified; Z79.899 Other long term (current) drug therapy; G89.29 Other chronic pain; J45.909 Unspecified asthma, uncomplicated; K21.9 Gastro-esophageal reflux disease without esophagitis; N30.00 Acute cystitis without hematuria; Z23 Encounter for immunization
CPT/HCPCS: 36591; 74177; 80053; 81001; 83690; 85025; 87086; 87088; 87186; 96365; 96372; 96375; 97802; 99221; 99283; J7030; Q9967; 90662; A4216; G0378; J2405

== ENCOUNTER 2022-12-03 05:15 | Emergency (ER) | payer MEDICARE, BC, SELFPAY ==
[2022-12-03] VITALS (7 sets, daily range): BP systolic 130–193; BP diastolic 64–103; PULSE 81–134; RESP 16–22; TEMP 36.1–37.1; O2SAT 93–97; BMI 32.8
--- NOTE | 2022-12-03 05:33 | CT_ITS ---
EXAM: CT ABDOMEN AND PELVIS WITH INTRAVENOUS CONTRAST CLINICAL INDICATION: abd pain -- ? SBO abd pain -- ? SBO. Nausea and vomiting. Patient had iron infusion yesterday. On oral antibiotics for colitis. Metastatic ovarian cancer diagnosed in 2020. Chemotherapy for 2 years. TECHNIQUE: Helically acquired images were obtained of the abdomen and pelvis with intravenous contrast. This CT exam was performed using one or more of the following dose reduction techniques: automated exposure control, adjustment of the mA and/or kV according to patient size, and/or use of iterative reconstruction technique. CONTRAST: IV 100mL [id number] RADIATION DOSE: CTDIvol = 14.62 mGy, DLP = 956.38 mGy-cm COMPARISON: CT scans 11/27/2022 and 09/21/2022. CT PET scan 08/23/2022. FINDINGS: LOWER THORAX: There is a small hiatal hernia. Lung bases are clear. No cardiomegaly. No significant pericardial effusion. ABDOMEN: LIVER: There are multiple small low attenuation space occupying lesions in the liver, ranging up to 1.2 cm. These have increased in apparent size and number from the study done in September and likely represent metastatic disease. GALLBLADDER AND BILE DUCTS: Unremarkable. No calcified gallstones. No gallbladder distention or wall edema. No intra- or extrahepatic biliary ductal dilation. PANCREAS: Unremarkable. No focal cystic or solid mass. SPLEEN: Unremarkable. Normal size without focal cystic or solid mass. ADRENALS: Unremarkable. No nodules. KIDNEYS AND URETERS: There is moderate hydronephrosis of the right kidney which is not significantly different from last previous exam. There is interval resolution of previously demonstrated mild left hydronephrosis. There is no demonstrated urinary calculus. Normal renal size and position. STOMACH AND BOWEL: There is persistent distention of small bowel loops with diameters ranging up to 4.2 cm. There is a transition point in the midline pelvis on axial images 77-78 and on sagittal images 88-89. This was also present on previous exam and there is no significant interval change. There is infiltration of fat in this region and the obstruction may be due to either an inflammatory process or adhesions. There are colonic diverticula without evidence for acute diverticulitis. There is mural thickening of the sigmoid colon. There is mild fat infiltration adjacent to the descending colon and sigmoid colon, consistent with colitis. There is no significant interval change. There is a loop transverse colostomy in the left mid abdomen. PELVIS: APPENDIX: No evidence of acute appendicitis. BLADDER: Assessment of the urinary bladder is limited by nondistention. There is no visualized abnormality. REPRODUCTIVE: The uterus is absent, consistent with a prior hysterectomy. ABDOMEN and PELVIS: INTRAPERITONEAL SPACE: There is a small amount of ascites in the right side of the abdomen, not significantly changed from last previous study. May be related to neoplasm. No free air. BONES/JOINTS: There are multilevel degenerative changes in the visualized spine. There is grade 1 anterolisthesis of L5-S1 level, on a degenerative basis. No suspicious lytic or blastic abnormality. SOFT TISSUES: Unremarkable. No discrete abdominal or pelvic wall hernia. VASCULATURE: Unremarkable. Abdominal aorta is non-dilated. LYMPH NODES: Unremarkable. No enlarged lymph nodes. CT/Abdomen/Pelvis W IV Cont ONLY IMPRESSION: 1. Persistent small bowel obstruction at the level of the distal ileum. This may be due to an inflammatory process, neoplastic invasion, or adhesions. There is no significant change from exam done 6 days ago. 2. Persistent inflammatory changes of the distalmost descending colon and sigmoid colon consistent with colitis. No significant interval change. 3. Moderate hydronephrosis of the right kidney which is not significantly changed. No demonstrated urinary calculus. Potential etiologies for the hydronephrosis would include pyelonephritis or distal right ureteral obstruction of indeterminate etiology. 4. Interval resolution of recently demonstrated left hydronephrosis. 5. Colonic diverticulosis. Acute diverticulitis is thought to be unlikely. 6. Transverse colostomy. Hysterectomy. 7. Atherosclerosis. 8. Liver metastases with increase in size and number compared to the September exam. 9. Persistent mild ascites, not definitely changed. 10. Small hiatal hernia. Electronically Signed: Sivakumar Bansal MD at 7:28 EDT ,
--- NOTE | 2022-12-03 05:51 | EX.ED.DYSGE1 ---
HPI History of Present Illness Chief Complaint: Nausea/Vomiting Informant: patient and family Narrative Narrative: Patient is a 77-year-old female with past medical history of ovarian cancer which led to abdominal surgery and placement of a colostomy. She was seen in the hospital approximately 6 days ago secondary to abdominal pain with bouts of nausea and vomiting and found to have a partial small bowel obstruction. She was kept in the hospital and discharged home and placed on antibiotics secondary to colitis. Reportedly she was doing better but did receive an iron infusion yesterday and then began with bouts of nausea and vomiting throughout the night. Patient states that there is no associated emma pain this time around and she also states that there has been stool formation in her colostomy but as she has been taking her 2 antinausea vomiting medications at home without symptom improvement there is concern for dehydration as well as potential repeat obstruction and she was brought in for evaluation. Patient also states that she was recently exposed to COVID and has concern for this as well [facility] Medical History Anemia Anxiety Asthma Back pain Cancer Carotid stenosis, bilateral Cataracts, bilateral Cellulitis CINV (chemotherapy-induced nausea and vomiting) Colostomy in place Depression Diabetes Difficulty balancing Easy bruising Essential hypertension Fatty liver Fibromyalgia First degree AV block GERD (gastroesophageal reflux disease) Heart disease Herpes zoster High cholesterol History of diverticulitis History of ischemic stroke Hypertension Hypokalemia Inflammatory polyarthritis Leg cramps Low iron Mixed hyperlipidemia Myocardial infarct Non-smoker Osteopenia Ovarian cancer Pancytopenia Paroxysmal ventricular tachycardia PFO (patent foramen ovale) Restless legs Shortness of breath on exertion TIA (transient ischemic attack) Ventricular tachycardia seen on monitoring tech Walker as ambulation aid Wears dentures Home Medications rosuvastatin 5 mg tablet 5 mg PO SUMOWEFR CHOLESTEROL 01/01/21 [History Last Taken 12/05/21] sertraline 100 mg tablet 200 mg PO DAILY DEPRESSION 01/01/21 [History Last Taken 09/20/22] ropinirole 0.5 mg tablet 0.5 mg PO QHS RLS 12/06/21 [History Last Taken 12/05/21] gabapentin 600 mg tablet 600 mg PO BID nerve pain 01/15/22 [History Last Taken 09/20/22] triamcinolone acetonide 0.025 % topical cream 1 applic topical DAILY PRN Rash 01/15/22 [History Last Taken Unknown] lidocaine-prilocaine 2.5 %-2.5 % topical cream 2.5 g topical ONCE #30 grams 04/23/22 [Rx Last Taken Unknown] prochlorperazine maleate 5 mg tablet 5 mg PO BID PRN Nausea 04/23/22 [History Last Taken Unknown] ibuprofen 200 mg capsule 600 mg PO TID PRN Pain 06/19/22 [History Last Taken Unknown] losartan 25 mg tablet 25 mg PO DAILY PRN BLOOD PRESSURE 07/01/22 [History Last Taken 09/20/22] famotidine 20 mg tablet (Pepcid AC) 20 mg PO DAILY reflux #60 tabs 09/11/22 [Rx Last Taken Unknown] ondansetron 8 mg disintegrating tablet 8 mg PO Q8H PRN Nausea #30 tabs 09/16/22 [Rx Last Taken Unknown] carvedilol 12.5 mg tablet (Coreg) 12.5 mg PO BID blood pressure #20 tabs 09/29/22 [Rx Last Taken Unknown] cefdinir 300 mg capsule 300 mg PO Q12 #10 caps 11/28/22 [Rx Last Taken Unknown] food supplemt, lactose-reduced 0.08 gram-1.5 kcal/mL oral liquid (Ensure Plus High Protein) 120 ml PO TIDCM #90 BOTTLES 11/28/22 [Rx Last Taken Unknown] diclofenac sodium 1 % topical gel 2 g topical DAILY 12/02/22 [History Last Taken Unknown] Allergy/AdvReac Type Severity Reaction Status Date / Time aspirin AdvReac Mild Other Verified 12/02/22 13:35 lisinopril AdvReac Mild Other Verified 12/02/22 13:35 waldrop AdvReac Nausea/Vom/ Verified 12/02/22 13:35 Diarrhea ciprofloxacin AdvReac Vomiting Verified 12/02/22 13:35 methotrexate AdvReac Other Verified 12/02/22 13:35 rosuvastatin [From Crestor] AdvReac Other Verified 12/02/22 13:35 simvastatin AdvReac Pain in Verified 12/02/22 13:35 joints Family History Mother Asthma Heart disease Depression Psychiatric care CVA (cerebral vascular accident) Thyroid disorder History of ulcer disease Grandfather Myocardial infarction Heart disease Grandmother Myocardial infarction Heart disease CVA (cerebral vascular accident) Uncle Parkinson disease Sister Cancer Other Hypertension Surgical History H/O right breast biopsy H/O tubal ligation History of abdominal paracentesis Hx of breast biopsy Hx of hysterectomy Port-A-Cath in place Tubal ligation status Social History household members: family Smoking Status: Never smoker alcohol intake: never substance use type: does not use caffeine: Yes Type: carbonated beverages what type of physical activity do you participate in: none ROS ROS ED Constitutional Constitutional ED: Denies chills or fever(s) ENT ENT ED: Denies sore throat Cardiovascular Cardiovascular: Denies chest pain Respiratory/Chest Respiratory/Chest: Denies cough or dyspnea Gastrointestinal Gastrointestinal: Reports nausea and vomiting; Denies abdominal pain or diarrhea Genitourinary Genitourinary ED: Denies dysuria Musculoskeletal Musculoskeletal: Denies myalgias Integumentary Denies rash Neurologic Neurologic: Denies headache(s) Hematologic/Lymphatic Hematologic/Lymphatic: Denies easy bleeding or easy bruising EXAM Physical Exam Const Vital Signs: 12/03/22 05:16 12/03/22 07:12 Temperature 96.9 F L 97.8 F Temperature Source Temporal Oral Pulse Rate 82 81 Respiratory Rate 18 16 Blood Pressure 140/78 H 140/64 H Blood Pressure Mean 98 89 Pulse Ox 95 95 Oxygen Delivery Method Room Air Room Air Positive well nourished and well developed General Appearance ED: well developed; Negative for pallor HEENT Reports dry mucous membranes HEENT Narrative: Mucous membranes are dry and tacky. No airway edema or compromise. No secondary changes in the posterior pharynx to suggest infection. Mouth ED: Yes dry mucous membranes Mouth: dry mucous membranes Eyes PERRL and EOMs intact bilaterally General Eye ED: Negative for scleral icterus Neck supple Neck Narrative: No nuchal rigidity or meningeal signs noted Chest Wall Chest Narrative: Patient has a port present in her right upper chest wall without secondary changes to suggest infection Resp normal respiratory effort and clear to auscultation bilaterally Cardio regular rate and regular rhythm Rate: other Other Details: Radial and carotid pulses are equal and symmetric GI non-tender and non-distended GI Narrative: Abdomen is soft and nondistended with normal active bowel sounds. There is liquid stool present in the patient's colostomy. No increased tympany noted. No voluntary guarding or rigidity. No pulsatile mass Auscultation: normoactive bowel sounds Palpation: soft Extremity normal to inspection Neuro oriented x3 and CN's II-XII intact bilaterally Sensorium / Orientation: alert Psych mental status grossly normal Skin no rashes or lesions noted Skin Narrative: Skin turgor is increased General Skin Exam: Negative for jaundice or pallor MDM MDM MDM Narrative Medical decision making narrative: Patient presented to the ER with stable vitals and her abdomen did not show changes consistent with obvious obstruction as she was still producing liquidy stool and only had slight distention. However with her recent diagnosis of partial small bowel obstruction and the fact symptoms have returned there is concern for persistent colitis or small bowel obstruction or perforation and secondary to this repeat labs and a CT were obtained. Labs show that her white count has dropped from normal to leukopenic at 1.1 and her platelets have decreased from 123-31. Moreover her absolute neutrophil count has diminished from normal to a value of 0.5. CT scan showed persistent colitis and small bowel obstruction that was according to the radiologist no better or no worse than her previous evaluation 6 days ago. Secondary to this the case was discussed with general surgery on-call. They feel that based on the patient's metastatic cancer history and the fact her symptoms have remained after her previous evaluation 6 days ago that she will require a higher level of care. The patient reports that her colostomy was performed at [facility] roughly 2 months ago but she did not like her time there and prefers to go to [facility]. The surgeon on-call at this time does not feel need for antibiotics as she has been on Omnicef and as vomiting is minimal does not recommend a NG tube as she did not have one at her last visit and her symptoms resolved spontaneously. [facility] has been contacted and we are waiting a call from their general surgeon to discuss potential acceptance. Patient will be signed out to the day physician Dr. Obrien while awaiting potential transfer History & Record Review Discussion w/independent historian: Patient and Family Lab Data Attestation: I reviewed the patient's lab results. Labs: Laboratory Results - last 24 hr 12/03/22 05:55 WBC 1.1 L* RBC 2.71 L Hgb 8.4 L Hct 27.2 L MCV 100.4 H MCH 31.0 MCHC 30.9 L RDW Std Deviation 70.8 H RDW Coeff of Glenn 18.8 H Plt Count 31 L* MPV 10.7 Immature Gran % (Auto) 0.900 Neut % (Auto) 48.7 Lymph % (Auto) 44.9 H [place] % (Auto) 3.7 Eos % (Auto) 0.9 Baso % (Auto) 0.9 Absolute Neuts (auto) 0.5 L Absolute Lymphs (auto) 0.48 L Nucleated RBC % 0 Differential Comment SCANNED Diff Path Review May foll Platelet Estimate MKD DEC Sodium 137 Potassium 3.8 Chloride 103 Carbon Dioxide 25.0 Anion Gap 9 BUN 20 H Creatinine 1.10 H Estim Creat Clear Calc 48.97 Est GFR (MDRD) Af Amer 62 Est GFR (MDRD) Non-Af 51 L BUN/Creatinine Ratio 18.2 Glucose 124 H Calcium 8.9 Magnesium 2.0 Total Bilirubin 0.70 Direct Bilirubin 0.22 AST 16 ALT 13 Alkaline Phosphatase 79 Total Protein 7.0 Albumin 3.0 L Globulin 4.0 Lipase 15 Radiography Diagnostic Testing: Clinical Impression(s) from Imaging Studies Abdomen/Pelvis CT 12/03/22 05:33 IMPRESSION: 1. Persistent small bowel obstruction at the level of the distal ileum. This may be due to an inflammatory process, neoplastic invasion, or adhesions. There is no significant change from exam done 6 days ago. 2. Persistent inflammatory changes of the distalmost descending colon and sigmoid colon consistent with colitis. No significant interval change. 3. Moderate hydronephrosis of the right kidney which is not significantly changed. No demonstrated urinary calculus. Potential etiologies for the hydronephrosis would include pyelonephritis or distal right ureteral obstruction of indeterminate etiology. 4. Interval resolution of recently demonstrated left hydronephrosis. 5. Colonic diverticulosis. Acute diverticulitis is thought to be unlikely. 6. Transverse colostomy. Hysterectomy. 7. Atherosclerosis. 8. Liver metastases with increase in size and number compared to the September exam. 9. Persistent mild ascites, not definitely changed. 10. Small hiatal hernia. Electronically Signed: Sivakumar Bansal MD at 7:28 EDT , Discharge Plan Triage Chief Complaint: Nausea/Vomiting ED Provider: Surinder Serrato Dx/Rx/DC Orders Clinical Impression: Colitis, Leukopenia, Neutropenia, Thrombocytopenia, SBO (small bowel obstruction) Prescriptions: No Action rosuvastatin 5 mg tablet 5 mg PO SUMOWEFR Rx Instructions: patient takes 4 times a week losartan 25 mg tablet 25 mg PO DAILY PRN (Reason: BLOOD PRESSURE) gabapentin 600 mg tablet 600 mg PO BID triamcinolone acetonide 0.025 % cream 1 applic topical DAILY PRN (Reason: Rash) ibuprofen 200 mg capsule 600 mg PO TID PRN (Reason: Pain) prochlorperazine maleate 5 mg tablet 5 mg PO BID PRN (Reason: Nausea) lidocaine-prilocaine 2.5-2.5 % cream 2.5 g topical ONCE Qty: 30 1RF famotidine [Pepcid AC] 20 mg tablet 20 mg PO DAILY Qty: 60 0RF sertraline 100 mg tablet 200 mg PO DAILY Patient Comments: DEPRESSION diclofenac sodium 1 % gel 2 g topical DAILY Rx Instructions: Apply topically to hands and feet twice daily ropinirole 0.5 mg tablet 0.5 mg PO QHS carvedilol [Coreg] 12.5 mg tablet 12.5 mg PO BID Qty: 20 0RF Rx Instructions: must administer with a meal/food cefdinir 300 mg Capsule 300 mg PO Q12 Qty: 10 0RF Ensure Plus High Protein 0.08 gram-1.5 kcal/mL Liquid 120 ml PO TIDCM Qty: 90 0RF ondansetron 8 mg tablet,disintegrating 8 mg PO Q8H PRN (Reason: Nausea) Qty: 30 2RF Primary Care Provider: Magi Farmer Referrals: Magi Farmer MD [Primary Care Provider] - Disposition Disposition: Acute Care Hospital Discharge Location: [facility]
[2022-12-03] MEDS: 0.9% Normal Saline (1000mL) 1,000 ML 999 ML IV (05:53)
[2022-12-03] MEDS: Ondansetron 4 MG/2 ML Vial IV ×2 (05:53→15:23)
[2022-12-03 06:05] LABS: Absolute Lymphocyte Count 0.48 X10^3/uL (0.83-4.51); Absolute Neutrophil Count 0.5 X10^3/uL (2.0-7.7); Basophil# 0.01 X10^3/uL; Basophil% 0.9 % (0-1); Eosinophil# 0.01 X10^3/uL; Eosinophils% 0.9 % (0-5); Hematocrit 27.2 % (37-47); Hemoglobin 8.4 g/dL (12.0-15.0); Lymphocyte # 0.48 X10^3/ul (0.83-4.51); Lymphocyte % 44.9 % (19-41); Mean Corp Hgb Conc 30.9 g/dL (32-36); Mean Corpuscular Volume 100.4 fL (81-99); Mean Platelet Vol. 10.7 fl (6.2-12.0); Monocyte# 0.04 X10^3/uL; Monocyte% 3.7 % (0-10); NRBC Flagged by Analyzer 0 % (0-5); Neutrophil # 0.52 X10^3/uL (2.7-7.7); Neutrophil % 48.7 % (47-70); POSITIVE COUNT YES; POSITIVE DIFFERENTIAL YES; POSITIVE MORPHOLOGY YES; RBC Distribution Width CV 18.8 % (11.6-14.6); RBC Distribution Width SD 70.8 fl (35.1-43.9); Red Blood Count 2.71 M/mm3 (4.2-5.4)
[2022-12-03 06:08] LABS: Differential Indicated SCAN CRITERIA MET; Platelet Count 31 K/mm3 (150-450); White Blood Count 1.1 K/mm3 (4.4-11.0)
[2022-12-03 06:22] LABS: AST(SGOT) 16 U/L (15-37); Alanine Aminotransfer ALT/SGPT 13 U/L (13-56); Alkaline Phosphatase 79 U/L (45-117); Anion Gap 9 (5-15); BUN 20 mg/dL (7-18); BUN/Creat Ratio 18.2 RATIO (10-20); Bilirubin, Direct 0.22 mg/dL (0.00-0.30); Calcium,Total 8.9 mg/dL (8.5-10.1); Chloride 103 mmol/L (98-107); EST Glomerular Filtration Rate 51 mL/min (>60); Est Glom Filt Rate - Afr Amer 62 mL/min (>60); Estimated Creatinine Clearance 48.97 ml/min; Glucose 124 mg/dL (74-106); Lipase 15 U/L (13-75); Potassium 3.8 mmol/L (3.5-5.1); Sodium Level 137 mmol/L (136-145)
[2022-12-03 06:23] LABS: Differential Comment SCANNED; Platelet Estimate MKD DEC (ADEQ)
[2022-12-03] MEDS: proCHLORPERazine 10 MG/2 ML Vial 5 MG IV (07:55)
[2022-12-03] MEDS: Piperacil/Tazobactam 3.375 GM in 0.9% Normal Saline (50mL MB+) 50 ML IV (10:04)
[2022-12-03] MEDS: 0.9% Normal Saline (1000mL) 1,000 ML 200 ML IV (10:05)
[2022-12-03] MEDS: Oxymetazoline 0.05% 1 SPRAY SPRAY.BTL 2 SPRAY NASAL (10:06)
--- NOTE | 2022-12-03 10:46 | ED.RN ---
ATTEMPTED TO PLACE NG AND UNSUCCESSFUL. PT STATES SHE REFUSES TO TRY AN NG AGAIN, DR LOONEY MADE AWARE
[2022-12-03] MEDS: Morphine 4 MG/ML Syringe IV (12:46)
[2022-12-03 14:21] LABS: Pathologist Review Reviewed
--- NOTE | 2022-12-03 15:27 | NURSING ---
PT ADAMANTLY REFUSES NG DESPITE EDUCATION ON BENEFITS AND MEDICAL NECESSITY.
--- NOTE | 2022-12-03 17:24 | NURSING ---
ETA 1920
--- NOTE | 2022-12-03 18:07 | ED.RN ---
1800: Patient's HR 130s, Dr. Grimm notified, order for 500mL bolus given.
[2022-12-03] MEDS: 0.9% Normal Saline (500mL Bag) 500 ML 999 ML IV (18:30)
== END 2022-12-03 19:37 | disposition short-term general hospital (02) ==
PROVIDERS: Emergency Provider Emergency Medicine; PCP Family Medicine; Visit Provider Emergency Medicine
DX: K52.9 Noninfective gastroenteritis and colitis, unspecified (principal); C56.9 Malignant neoplasm of unspecified ovary; D70.9 Neutropenia, unspecified; Z93.3 Colostomy status; M06.4 Inflammatory polyarthropathy; K56.609 Unspecified intestinal obstruction, unspecified as to partial versus complete obstruction; D69.6 Thrombocytopenia, unspecified; E11.9 Type 2 diabetes mellitus without complications; E78.2 Mixed hyperlipidemia; I10 Essential (primary) hypertension; F41.9 Anxiety disorder, unspecified; J45.909 Unspecified asthma, uncomplicated; M79.7 Fibromyalgia; M85.80 Other specified disorders of bone density and structure, unspecified site; Q21.12 Patent foramen ovale; I65.23 Occlusion and stenosis of bilateral carotid arteries; K76.0 Fatty (change of) liver, not elsewhere classified; K21.9 Gastro-esophageal reflux disease without esophagitis; I25.2 Old myocardial infarction; G25.81 Restless legs syndrome; Z86.73 Personal history of transient ischemic attack (TIA), and cerebral infarction without residual deficits; Z79.899 Other long term (current) drug therapy
CPT/HCPCS: 36591; 74177; 80048; 80076; 83690; 83735; 85025; 87428; 96360; 96361; 96365; 96366; 96375; 99283; J7030; Q9967; A4216; J2405